=== PATIENT | female | born 1940 | race Caucasian/White ===

== ENCOUNTER 2021-03-20 12:23 | Emergency (ER) | payer MEDICARE ==
[2021-03-20] MEDS ORDERED: PANTOPRAZOLE 40 MG/10 ML VIAL IVP STA (13:23)
[2021-03-20] MEDS ORDERED: SODIUM CHLORIDE 0.9% 1,000 ML IV STA (13:23)
[2021-03-20] MEDS ORDERED: ONDANSETRON 4 MG/2 ML VIAL IVP STA (13:23)
[2021-03-20 13:57] LABS: Basophils % (A) 1 %; Eosinophils % (A) 1 %; HCT 45.9 % (34.0-46.0); HGB 15.3 gm/dL (11.4-16.0); Lymphocytes # (A) 1.4 k/uL (1.0-4.8); Lymphocytes % (A) 23 %; MCH 30.3 pg (25.0-35.0); MCHC 33.3 g/dL (31.0-37.0); MCV 90.9 fL (80.0-100.0); Mean Platelet Volume 7.3; Monocytes # (A) 0.3 k/uL (0-1.0); Monocytes % (A) 5 %; Neutrophils # (A) 4.2 k/uL (1.3-7.7); Neutrophils % (A) 69 %; Platelet Count 247 k/uL (150-450); RBC 5.05 m/uL (3.80-5.40); RDW 12.7 % (11.5-15.5); WBC 6.1 k/uL (3.8-10.6)
[2021-03-20 14:11] LABS: ALT 19 U/L (4-34); AST 30 U/L (14-36); African American GFR (CKD) >90 (>60 ml/min/1.73 sqM); Alkaline Phosphatase 97 U/L (38-126); Amylase 81 U/L (30-110); Anion Gap 7 mmol/L; Blood Urea Nitrogen 8 mg/dL (7-17); Calcium 9.8 mg/dL (8.4-10.2); Carbon Dioxide 25 mmol/L (22-30); Chloride 104 mmol/L (98-107); Glucose 94 mg/dL (74-99); Lipase 152 U/L (23-300); Non-African American GFR(CKD) >90 (>60 ml/min/1.73 sqM); Potassium 4.2 mmol/L (3.5-5.1); Sodium 136 mmol/L (137-145); Total Bilirubin 0.4 mg/dL (0.2-1.3); Total Protein 6.3 g/dL (6.3-8.2)
[2021-03-20 14:17] LABS: INR 0.9 (<1.2); Partial Thromboplastin Time 23.6 sec (22.0-30.0); Prothrombin Time 10.2 sec (9.0-12.0)
--- NOTE | 2021-03-20 14:25 | ED ---
Abdominal Pain HPI - General Chief Complaint: Abdominal Pain Stated Complaint: Nausea & possible UTI Time Seen by Provider: 03/20/21 12:43 Source: patient Mode of arrival: ambulatory Limitations: no limitations - History of Present Illness Initial Comments: Patient is a 80-year-old female with history of hypertension, presenting to the emergency Department with complaints of abdominal pain, nausea and decreased appetite for several days. She also has concerns for UTI with dysuria over the past 3-4 days. Patient states she is 2 months post op hiatal hernia repair for the second time. She states she had this procedure done with a Dr. Munoz out of [facility] in [place]. She states even before the procedure she's been having lots of nausea and trouble eating, she is losing weight so she finally decided to have the hernia fixed again. She states the nausea has continued and she is also having complaints of a UTI, so she decided to come in to be evaluated. Patient recently moved to the area and is not planned to go back to her surgeon in [place]. She denies any fevers or chills. She denies any diarrhea, she does take MiraLAX and stool softeners for constipation. She had a bowel movement 2 days ago. She denies any chest pain or shortness of breath. She has no further complaints at this time. It'll signs are stable upon arrival. - Related Data Home Medications Medication Instructions Recorded Confirmed Diltiazem HCl [Cardizem LA] 300 mg PO HS 03/20/21 03/20/21 Fosinopril Sodium [Monopril] 20 mg PO BID 03/20/21 03/20/21 Hydrochlorothiazide 12.5 mg PO DAILY PRN 03/20/21 03/20/21 [hydroCHLOROthiazide] Isosorbide Mononitrate ER [Imdur] 60 mg PO HS 03/20/21 03/20/21 Nitroglycerin Sl Tabs [Nitrostat] 0.4 mg SL Q5M PRN 03/20/21 03/20/21 Ondansetron [Zofran] 4 mg PO Q8H PRN 03/20/21 03/20/21 Pantoprazole Sodium [Protonix] 20 mg PO DAILY 03/20/21 03/20/21 Vit C/E/Zn/Coppr/Lutein/Zeaxan 1 cap PO DAILY 03/20/21 03/20/21 [Preservision Areds 2 Softgel] hydrALAZINE HCL [Apresoline] 25 mg PO BID 03/20/21 03/20/21 Previous Rx's Medication Instructions Recorded Cephalexin [Keflex] 500 mg PO BID 5 Days #10 cap 03/20/21 Ondansetron Odt [Zofran Odt] 4 mg PO Q8HR PRN #10 tab 03/20/21 Allergies Allergy/AdvReac Type Severity Reaction Status Date / Time Penicillins Allergy Anaphylaxis Verified 03/20/21 14:23 aspirin AdvReac Abdominal Verified 03/20/21 14:23 Pain codeine AdvReac Confusion Verified 03/20/21 14:23 NSAIDS (Non-Steroidal AdvReac Abdominal Verified 03/20/21 14:23 Anti-Inflamma Pain Review of Systems ROS Statement: Those systems with pertinent positive or pertinent negative responses have been documented in the HPI. ROS Other: All systems not noted in ROS Statement are negative. Past Medical History Past Medical History: Hypertension History of Any Multi-Drug Resistant Organisms: None Reported Past Surgical History: Back Surgery, Hernia Repair, Orthopedic Surgery Additional Past Surgical History / Comment(s): Neck fusion, Past Psychological History: No Psychological Hx Reported Smoking Status: Never smoker Past Alcohol Use History: None Reported Past Drug Use History: None Reported General Exam - General Exam Comments Initial Comments: GENERAL: Patient is well-developed and well-nourished. Patient is nontoxic and in no acute distress. HEAD: Atraumatic, normocephalic. EYES: Pupils equal round and reactive to light, extraocular movements intact, sclera anicteric, conjunctiva are normal. Eyelids were unremarkable. ENT: TMs normal, nares patent, oropharynx clear without exudates. Moist mucous membranes. NECK: Normal range of motion, supple without lymphadenopathy or JVD. LUNGS: Unlabored respirations. Breath sounds clear to auscultation bilaterally and equal. No wheezes rales or rhonchi. HEART: Regular rate and rhythm without murmurs, rubs or gallops. ABDOMEN: Soft, mild epigastric discomfort on palpation, no other areas of specific pain, normoactive bowel sounds. No guarding, no rebound. No masses appreciated. : Deferred MUSCULOSKELETAL: Normal extremities with adequate strength and normal range of motion, no pitting or edema. No clubbing or cyanosis. NEUROLOGICAL: Patient is alert and oriented x 3. Motor and sensory are also intact. Cranial nerves II through XII grossly intact. Symmetrical smile. Normal speech, normal gait. PSYCH: Normal mood, normal affect. SKIN: Warm, Dry, normal turgor, no rashes or lesions noted. Limitations: no limitations Course Vital Signs 03/20/21 03/20/21 03/20/21 12:29 15:51 16:40 Temperature 98.2 F 98.0 F Pulse Rate 74 89 80 Respiratory 20 16 16 Rate Blood Pressure 176/97 176/84 151/78 O2 Sat by Pulse 97 96 99 Oximetry Medical Decision Making - Medical Decision Making Patient is a 80-year-old female here with abdominal pain, nausea and vomiting over the past few days as well as concerns for UTI. She is 2 months post hiatal hernia repair, surgeon is from [place]. Her vital signs are stable. Labs are all within normal limits including a normal white count, normal lactic acid, troponin is normal. Urine does show evidence for UTI with many wbc's, urine culture is pending. I initially performed a KUB which showed a nonspecific abdomen, correlate for left mid abdomen ileus. With patient's recent surgical history, there was concern for possible obstruction, I did order a CT which showed no acute abnormality. I did give patient some fluids, Zofran and for tonics. She's been resting comfortably. Discussed these findings with the isaiah cervantes and her family. Patient will be treated for her UTI and given referrals to a GI doctor and surgeon. She has no plans to go back to [place] to see her surgeon there. Patient is agreeable to this plan of care. I will give her 1 g of Rocephin here in the ER and continue her on Keflex for UTI. Return parameters were discussed with her and she verbalized understanding. Case discussed with Dr. Rojas. - Lab Data Result diagrams: 03/20/21 13:41 03/20/21 13:41 Lab Results 03/20/21 03/20/21 03/20/21 Range/Units 13:41 13:41 13:41 WBC 6.1 (3.8-10.6) k/uL RBC 5.05 (3.80-5.40) m/uL Hgb 15.3 (11.4-16.0) gm/dL Hct 45.9 (34.0-46.0) % MCV 90.9 (80.0-100.0) fL MCH 30.3 (25.0-35.0) pg MCHC 33.3 (31.0-37.0) g/dL RDW 12.7 (11.5-15.5) % Plt Count 247 (150-450) k/uL MPV 7.3 Neutrophils % 69 % Lymphocytes % 23 % Monocytes % 5 % Eosinophils % 1 % Basophils % 1 % Neutrophils # 4.2 (1.3-7.7) k/uL Lymphocytes # 1.4 (1.0-4.8) k/uL Monocytes # 0.3 (0-1.0) k/uL Eosinophils # 0.0 (0-0.7) k/uL Basophils # 0.0 (0-0.2) k/uL PT (9.0-12.0) sec INR (<1.2) APTT (22.0-30.0) sec Sodium 136 L (137-145) mmol/L Potassium 4.2 (3.5-5.1) mmol/L Chloride 104 (98-107) mmol/L Carbon Dioxide 25 (22-30) mmol/L Anion Gap 7 mmol/L BUN 8 (7-17) mg/dL Creatinine 0.51 L (0.52-1.04) mg/dL Est GFR (CKD-EPI)AfAm >90 (>60 ml/min/1.73 sqM) Est GFR (CKD-EPI)NonAf >90 (>60 ml/min/1.73 sqM) Glucose 94 (74-99) mg/dL Plasma Lactic Acid Rogelio (0.7-2.0) mmol/L Calcium 9.8 (8.4-10.2) mg/dL Total Bilirubin 0.4 (0.2-1.3) mg/dL AST 30 (14-36) U/L ALT 19 (4-34) U/L Alkaline Phosphatase 97 (38-126) U/L Troponin I (0.000-0.034) ng/mL Total Protein 6.3 (6.3-8.2) g/dL Albumin 4.0 (3.5-5.0) g/dL Amylase 81 (30-110) U/L Lipase 152 (23-300) U/L Urine Color Yellow Urine Appearance Cloudy H (Clear) Urine pH 7.0 (5.0-8.0) Ur Specific [place] 1.011 (1.001-1.035) Urine Protein Negative (Negative) Urine Glucose (UA) Negative (Negative) Urine Ketones Negative (Negative) Urine Blood Trace H (Negative) Urine Nitrite Negative (Negative) Urine Bilirubin Negative (Negative) Urine Urobilinogen <2.0 (<2.0) mg/dL Ur Leukocyte Esterase Large H (Negative) Urine RBC 6 H (0-5) /hpf Urine WBC 102 H (0-5) /hpf Hyaline Casts 1 (0-2) /lpf 03/20/21 03/20/21 03/20/21 Range/Units 13:41 13:41 13:41 WBC (3.8-10.6) k/uL RBC (3.80-5.40) m/uL Hgb (11.4-16.0) gm/dL Hct (34.0-46.0) % MCV (80.0-100.0) fL MCH (25.0-35.0) pg MCHC (31.0-37.0) g/dL RDW (11.5-15.5) % Plt Count (150-450) k/uL MPV Neutrophils % % Lymphocytes % % Monocytes % % Eosinophils % % Basophils % % Neutrophils # (1.3-7.7) k/uL Lymphocytes # (1.0-4.8) k/uL Monocytes # (0-1.0) k/uL Eosinophils # (0-0.7) k/uL Basophils # (0-0.2) k/uL PT 10.2 (9.0-12.0) sec INR 0.9 (<1.2) APTT 23.6 (22.0-30.0) sec Sodium (137-145) mmol/L Potassium (3.5-5.1) mmol/L Chloride (98-107) mmol/L Carbon Dioxide (22-30) mmol/L Anion Gap mmol/L BUN (7-17) mg/dL Creatinine (0.52-1.04) mg/dL Est GFR (CKD-EPI)AfAm (>60 ml/min/1.73 sqM) Est GFR (CKD-EPI)NonAf (>60 ml/min/1.73 sqM) Glucose (74-99) mg/dL Plasma Lactic Acid Rogelio 1.1 (0.7-2.0) mmol/L Calcium (8.4-10.2) mg/dL Total Bilirubin (0.2-1.3) mg/dL AST (14-36) U/L ALT (4-34) U/L Alkaline Phosphatase (38-126) U/L Troponin I <0.012 (0.000-0.034) ng/mL Total Protein (6.3-8.2) g/dL Albumin (3.5-5.0) g/dL Amylase (30-110) U/L Lipase (23-300) U/L Urine Color Urine Appearance (Clear) Urine pH (5.0-8.0) Ur Specific [place] (1.001-1.035) Urine Protein (Negative) Urine Glucose (UA) (Negative) Urine Ketones (Negative) Urine Blood (Negative) Urine Nitrite (Negative) Urine Bilirubin (Negative) Urine Urobilinogen (<2.0) mg/dL Ur Leukocyte Esterase (Negative) Urine RBC (0-5) /hpf Urine WBC (0-5) /hpf Hyaline Casts (0-2) /lpf Disposition Clinical Impression: Nausea, UTI (urinary tract infection), Abdominal pain Disposition: HOME SELF-CARE Condition: Stable Instructions (If sedation given, give patient instructions): Urinary Tract Infection in Women (ED) Additional Instructions: Please return to the Emergency Department if symptoms worsen or any other concerns. Take antibiotics as prescribed. May take Zofran for additional nausea or vomiting. These follow-up with your primary care physician as well as GI and surgery as discussed. Prescriptions: Cephalexin [Keflex] 500 mg PO BID 5 Days #10 cap Ondansetron Odt [Zofran Odt] 4 mg PO Q8HR PRN #10 tab PRN Reason: Nausea Is patient prescribed a controlled substance at d/c from ED?: No Referrals: Nonstaff,Physician [Primary Care Provider] - 1-2 days Krystyna Canada MD [STAFF PHYSICIAN] - 1-2 days Anna Miner DO [Doctor of Osteopathic Medicine] - 1-2 days Time of Disposition: 16:22
[2021-03-20 14:31] LABS: Appearance,Urine Cloudy (Clear); Bilirubin,Urine Negative (Negative); Blood,Urine Trace (Negative); Color,Urine Yellow; Glucose,Urine (UA) Negative (Negative); Hyaline Casts,Urine 1 /lpf (0-2); Ketones,Urine Negative (Negative); Leukocyte Esterase,Urine Large (Negative); Nitrite,Urine Negative (Negative); Protein,Urine Negative (Negative); RBC,Urine 6 /hpf (0-5); Specific Gravity,Urine 1.011 (1.001-1.035); Urobilinogen,Urine <2.0 mg/dL (<2.0); WBC,Urine 102 /hpf (0-5)
--- NOTE | 2021-03-20 15:05 | XR ---
EXAMINATION TYPE: XR KUB DATE OF EXAM: 03/20/2021 COMPARISON: None INDICATION: Epigastric pain left flank pain TECHNIQUE: Single view abdomen upright view FINDINGS: There is a normal bowel gas pattern. No free air is under the diaphragm. No suspicious air-fluid leve ls are present. Nonspecific dilated air-filled small bowel loops are within the left mid abdomen. Lar gest diameter is 3.3 cm. Psoas margins are normal. No organomegaly is present. Vascular calcifications within the aorta. Cholecystectomy clips are evident. IMPRESSION: 1. Nonspecific abdomen. Correlate for left midabdomen ileus
--- NOTE | 2021-03-20 15:41 | CT ---
EXAMINATION TYPE: CT abdomen pelvis w con DATE OF EXAM: 03/20/2021 COMPARISON: None INDICATION: periumbilical to LLQ pain, nausea DLP: 905.4 mGycm, Automated exposure control for dose reduction was used. CONTRAST: 100 mL of Isovue 370. Study performed without Oral Contrast TECHNIQUE: Axial images were obtained from above the diaphragm to the pubic rami in the axial plane a t 5 mm thick sections. Reconstructed images are reviewed on the computer in the coronal plane. FINDINGS: Limited CT sections are obtained the lung bases. The lung bases are clear. CT ABDOMEN: Liver: Normal Spleen: Normal Pancreas: Atrophic Adrenal glands: The adrenal glands are normal. Gallbladder: Surgically absent Kidneys: No masses are evident. No hydronephrosis is present. No cysts are present. Delayed images were obtained through the kidneys, which remain unremarkable. Aorta: Dense Vascular calcification is within the aorta. Inferior vena cava: Normal. CT PELVIS: No periumbilical hernia is identified. Loops of bowel within the abdomen and pelvis are normal. This study is performed without oral con trast limiting bowel evaluation. Appendix: Normal as visualized. Urinary bladder: Normal. Genitourinary structures: Uterus appears unremarkable. Adnexal regions are clear. Osseous structures: No suspicious lytic or sclerotic lesions are evident. Small bone island is likely in the anterior femoral head left femur. Degenerative changes are within the lumbar spine. IMPRESSIONS: 1. No suspicious abnormalities to account for periumbilical or left lower quadrant pain.
[2021-03-20 15:51] VITALS: RESP 16
[2021-03-20] MEDS ORDERED: cefTRIAXone IN SWFI 1,000 MG/10 ML SYRINGE IVP STA (16:19)
[2021-03-20 16:47] VITALS: BP 151/78; PULSE 80; TEMP 98
== END 2021-03-20 16:47 | disposition home or self-care (01) ==
LOC: EC 12:23
DX: N39.0 Urinary tract infection, site not specified (principal); I10 Essential (primary) hypertension; Z88.0 Allergy status to penicillin
CPT/HCPCS: 36415; 80053; 82150; 83605; 83690; 84484; 85025; 85610; 85730; 81001; 87086; 74018; 74177; 99284; 96374; 96375 ×2; 96361 ×2; J2405; J0696; C9113; Q9967

== ENCOUNTER 2021-04-20 17:30 | Emergency (ER) | payer MEDICARE ==
--- NOTE | 2021-04-20 22:19 | ED ---
General Adult HPI - General Chief complaint: Recheck/Abnormal Lab/Rx Stated complaint: Prolapse Time Seen by Provider: 04/20/21 21:09 Source: patient Mode of arrival: wheelchair Limitations: no limitations - History of Present Illness Initial comments: 80-year-old female presents to the emergency room for a chief complaint of rectal prolapse. Patient reports that this is been ongoing for months. Patient states that it prolapse again yesterday and it took her 5 hours to reduce it because it was tender. Patient states this concerned her and she wanted to be evaluated today. Patient does not currently have a rectal prolapse. Patient is stating she does have some rectal discomfort but denies any abdominal pain.Patient has no other complaints at this time including shortness of breath, chest pain, abdominal pain, nausea or vomiting, headache, or visual changes. - Related Data Home Medications Medication Instructions Recorded Confirmed Diltiazem HCl [Cardizem LA] 300 mg PO HS 03/20/21 04/20/21 Fosinopril Sodium [Monopril] 20 mg PO BID 03/20/21 04/20/21 Hydrochlorothiazide 12.5 mg PO DAILY PRN 03/20/21 04/20/21 [hydroCHLOROthiazide] Isosorbide Mononitrate ER [Imdur] 60 mg PO HS 03/20/21 04/20/21 Nitroglycerin Sl Tabs [Nitrostat] 0.4 mg SL Q5M PRN 03/20/21 04/20/21 Pantoprazole Sodium [Protonix] 20 mg PO DAILY 03/20/21 04/20/21 Vit C/E/Zn/Coppr/Lutein/Zeaxan 1 cap PO DAILY 03/20/21 04/20/21 [Preservision Areds 2 Softgel] hydrALAZINE HCL [Apresoline] 25 mg PO BID 03/20/21 04/20/21 Doxycycline Monohydrate 100 mg PO BID 04/20/21 04/20/21 Previous Rx's Medication Instructions Recorded Ondansetron Odt [Zofran Odt] 4 mg PO Q8HR PRN #10 tab 03/20/21 Allergies Allergy/AdvReac Type Severity Reaction Status Date / Time Penicillins Allergy Anaphylaxis Verified 04/20/21 22:09 aspirin AdvReac Abdominal Verified 04/20/21 22:09 Pain codeine AdvReac Confusion Verified 04/20/21 22:09 NSAIDS (Non-Steroidal AdvReac Abdominal Verified 04/20/21 22:09 Anti-Inflamma Pain Review of Systems ROS Statement: Those systems with pertinent positive or pertinent negative responses have been documented in the HPI. ROS Other: All systems not noted in ROS Statement are negative. Past Medical History Past Medical History: Hypertension History of Any Multi-Drug Resistant Organisms: None Reported Past Surgical History: Back Surgery, Hernia Repair, Orthopedic Surgery Additional Past Surgical History / Comment(s): Neck fusion, Past Psychological History: No Psychological Hx Reported Smoking Status: Never smoker Past Alcohol Use History: None Reported Past Drug Use History: None Reported General Exam Limitations: no limitations General appearance: alert, in no apparent distress Head exam: Present: atraumatic Eye exam: Present: normal appearance, PERRL, EOMI. Absent: scleral icterus ENT exam: Present: normal exam, mucous membranes moist Neck exam: Present: normal inspection, full ROM. Absent: tenderness Respiratory exam: Present: normal lung sounds bilaterally. Absent: respiratory distress, wheezes Cardiovascular Exam: Present: regular rate, normal rhythm, normal heart sounds GI/Abdominal exam: Present: soft, normal bowel sounds. Absent: distended, tenderness Rectal exam: Present: normal inspection Course Vital Signs 04/20/21 04/20/21 18:35 21:20 Temperature 97.8 F Pulse Rate 75 88 Respiratory 18 16 Rate Blood Pressure 171/101 188/96 O2 Sat by Pulse 96 99 Oximetry Medical Decision Making - Medical Decision Making Had a lengthy discussion with patient. At this time she is not having any abdominal pain, slight rectal discomfort. There is no prolapse. No vomiting. Patient is well-appearing. She does have an appointment with the colorectal surgeon in one week. At this time we feel the best course of action is to follow-up with the surgeon. If she has any significant pain or difficulty reducing the prolapse she can always return to the emergency room which she is aware of. She will continue stool softeners and will start Tylenol.I discussed this case with attending Dr. Rojas who agrees with this assessment and treatment plan. Disposition Clinical Impression: Rectal prolapse Disposition: HOME SELF-CARE Condition: Good Instructions (If sedation given, give patient instructions): Rectal Prolapse (ED) Additional Instructions: Please continue your stool softeners. Take Tylenol for pain and discomfort. Follow up with the colorectal surgeon on Tuesday. Return to the emergency room for any worsening symptoms. Is patient prescribed a controlled substance at d/c from ED?: No Referrals: Zarina Harp MD [STAFF PHYSICIAN] - 1-2 days Time of Disposition: 22:18
[2021-04-20 22:47] VITALS: BP 147/95; PULSE 92; RESP 18; TEMP 98.2
== END 2021-04-20 22:30 | disposition home or self-care (01) ==
LOC: EC 17:30
DX: K62.3 Rectal prolapse (principal); I10 Essential (primary) hypertension; Z88.0 Allergy status to penicillin; Z88.6 Allergy status to analgesic agent
CPT/HCPCS: 99283

== ENCOUNTER 2021-06-16 18:44 | Emergency (ER) | payer MEDICARE ==
[2021-06-16 19:11] VITALS: TEMP 98.5
[2021-06-16] MEDS ORDERED: SODIUM CHLORIDE 0.9% 500 ML 500 ML IV ONE (20:05)
[2021-06-16 20:31] LABS: Basophils % (A) 1 %; Eosinophils # (A) 0.1 k/uL (0-0.7); Eosinophils % (A) 1 %; HCT 40.6 % (34.0-46.0); HGB 13.6 gm/dL (11.4-16.0); Lymphocytes # (A) 1.9 k/uL (1.0-4.8); Lymphocytes % (A) 31 %; MCH 30.8 pg (25.0-35.0); MCHC 33.6 g/dL (31.0-37.0); MCV 91.6 fL (80.0-100.0); Monocytes # (A) 0.4 k/uL (0-1.0); Monocytes % (A) 6 %; Neutrophils # (A) 3.5 k/uL (1.3-7.7); Neutrophils % (A) 59 %; Platelet Count 254 k/uL (150-450); RBC 4.43 m/uL (3.80-5.40); RDW 12.7 % (11.5-15.5); WBC 5.9 k/uL (3.8-10.6)
[2021-06-16 20:33] LABS: Appearance,Urine Clear (Clear); Bilirubin,Urine Negative (Negative); Blood,Urine Negative (Negative); Color,Urine Yellow; Glucose,Urine (UA) Negative (Negative); Ketones,Urine Negative (Negative); Leukocyte Esterase,Urine Negative (Negative); Nitrite,Urine Negative (Negative); Protein,Urine Negative (Negative); Specific Gravity,Urine 1.013 (1.001-1.035); Urobilinogen,Urine <2.0 mg/dL (<2.0)
[2021-06-16 20:40] LABS: ALT 16 U/L (4-34); AST 23 U/L (14-36); African American GFR (CKD) >90 (>60 ml/min/1.73 sqM); Albumin 3.2 g/dL (3.5-5.0); Alkaline Phosphatase 96 U/L (38-126); Anion Gap 7 mmol/L; Blood Urea Nitrogen 14 mg/dL (7-17); Calcium 9.1 mg/dL (8.4-10.2); Carbon Dioxide 23 mmol/L (22-30); Chloride 100 mmol/L (98-107); Glucose 109 mg/dL (74-99); Non-African American GFR(CKD) >90 (>60 ml/min/1.73 sqM); Sodium 130 mmol/L (137-145); Total Bilirubin 0.4 mg/dL (0.2-1.3); Total Protein 5.5 g/dL (6.3-8.2)
[2021-06-16 21:07] VITALS: BP 161/85; PULSE 95; RESP 20
--- NOTE | 2021-06-16 21:34 | ED ---
Female Urogenital HPI - General Chief complaint: Urogenital Stated complaint: AMS/poss uti Time Seen by Provider: 06/16/21 19:30 Source: patient, family Mode of arrival: wheelchair Limitations: no limitations - History of Present Illness Initial comments: 80 year-old female patient presents to the emergency department for evaluation of weakness, dizziness, and nausea. States symptoms have started over the last few days. States that she generally gets these symptoms when she has a UTI. Patient gets frequent UTIs due to having to self catheterize. She has been doing this for about a year for chronic urinary retention after a neck surgery. Daughter states she has been somewhat confused today as well. They deny any fever. States she has had some hot flashes. She reports eating and drinking well. Denies any abdominal or back pain. Denies constipation or diarrhea. Patient denies any recent rash, cough, shortness of breath, chest pain, numbness, tingling, dizziness, weakness, headache, visual changes, or any other complaints. - Related Data Home Medications Medication Instructions Recorded Confirmed Diltiazem HCl [Cardizem LA] 300 mg PO HS 03/20/21 06/16/21 Fosinopril Sodium [Monopril] 20 mg PO BID 03/20/21 06/16/21 Hydrochlorothiazide 12.5 mg PO DAILY 03/20/21 06/16/21 [hydroCHLOROthiazide] Isosorbide Mononitrate ER [Imdur] 60 mg PO DAILY 03/20/21 06/16/21 Nitroglycerin Sl Tabs [Nitrostat] 0.4 mg SL Q5M PRN 03/20/21 06/16/21 Pantoprazole Sodium [Protonix] 20 mg PO DAILY 03/20/21 06/16/21 hydrALAZINE HCL [Apresoline] 25 mg PO BID 03/20/21 06/16/21 Aspirin EC [Ecotrin Low Dose] 81 mg PO Q48H 06/16/21 06/16/21 Melatonin 5 mg PO HS 06/16/21 06/16/21 Multivitamins, Thera [Multivitamin 1 tab PO DAILY 06/16/21 06/16/21 (formulary)] Ondansetron [Zofran] 4 mg PO Q12HR PRN 06/16/21 06/16/21 Previous Rx's Medication Instructions Recorded Doxycycline Hyclate 100 mg PO Q12H 1 Days #10 tab 06/16/21 Allergies Allergy/AdvReac Type Severity Reaction Status Date / Time nitrofurantoin Allergy Nausea, Verified 06/16/21 20:53 [From Macrobid] itching Penicillins Allergy Anaphylaxis Verified 06/16/21 19:11 sulfamethoxazole Allergy Nausea, Verified 06/16/21 20:53 [From Bactrim] Itching trimethoprim [From Bactrim] Allergy Nausea, Verified 06/16/21 20:53 Itching aspirin AdvReac Abdominal Verified 06/16/21 19:11 Pain codeine AdvReac Confusion Verified 06/16/21 19:11 NSAIDS (Non-Steroidal AdvReac Abdominal Verified 06/16/21 19:11 Anti-Inflamma Pain Review of Systems ROS Statement: Those systems with pertinent positive or pertinent negative responses have been documented in the HPI. ROS Other: All systems not noted in ROS Statement are negative. Past Medical History Past Medical History: Hypertension History of Any Multi-Drug Resistant Organisms: None Reported Past Surgical History: Back Surgery, Hernia Repair, Orthopedic Surgery Additional Past Surgical History / Comment(s): Neck fusion, colon proloapse reconstructions 04/2021 Past Psychological History: No Psychological Hx Reported Smoking Status: Never smoker Past Alcohol Use History: None Reported Past Drug Use History: None Reported General Exam Limitations: no limitations General appearance: alert, in no apparent distress, other (This is a well- developed, well-nourished adult female patient in no acute distress.) Respiratory exam: Present: normal lung sounds bilaterally. Absent: respiratory distress, wheezes, rales, rhonchi, stridor Cardiovascular Exam: Present: regular rate, normal rhythm, normal heart sounds. Absent: systolic murmur, diastolic murmur, rubs, gallop, clicks GI/Abdominal exam: Present: soft, normal bowel sounds. Absent: distended, tenderness, guarding, rebound, rigid Back exam: Present: normal inspection. Absent: CVA tenderness (R), CVA tenderness (L) Neurological exam: Present: alert, oriented X3, CN II-XII intact Psychiatric exam: Present: normal affect, normal mood Skin exam: Present: warm, dry, intact, normal color. Absent: rash Course Vital Signs 06/16/21 06/16/21 19:06 21:05 Temperature 98.5 F Pulse Rate 117 H 95 Respiratory 18 20 Rate Blood Pressure 163/93 161/85 O2 Sat by Pulse 96 97 Oximetry Medical Decision Making - Medical Decision Making 80-year-old female patient presented to the emergency department today for evaluation of dizziness, nausea, confusion. Physical examination is unremarkable. She is neurologically intact no focal deficits. Labs reviewed and did reveal low sodium at 1:30. Urinalysis was negative. Reevaluation she is resting comfortably in bed. Did discuss findings results with her. She was given 500 mL of normal saline. Instructed to increase salt in her diet. She will be started on doxycycline for possibility of subclinical UTI pending urine culture. She is instructed to follow-up with her primary care physician for recheck in 1-2 days. Return parameters were discussed in detail. She verbalizes understanding and agrees with this plan. Case discussed with my attending Dr. Saavedra. - Lab Data Result diagrams: 06/16/21 20:08 06/16/21 20:08 Lab Results 06/16/21 06/16/21 06/16/21 Range/Units 20:08 20:08 20:08 WBC 5.9 (3.8-10.6) k/uL RBC 4.43 (3.80-5.40) m/uL Hgb 13.6 (11.4-16.0) gm/dL Hct 40.6 (34.0-46.0) % MCV 91.6 (80.0-100.0) fL MCH 30.8 (25.0-35.0) pg MCHC 33.6 (31.0-37.0) g/dL RDW 12.7 (11.5-15.5) % Plt Count 254 (150-450) k/uL MPV 7.0 Neutrophils % 59 % Lymphocytes % 31 % Monocytes % 6 % Eosinophils % 1 % Basophils % 1 % Neutrophils # 3.5 (1.3-7.7) k/uL Lymphocytes # 1.9 (1.0-4.8) k/uL Monocytes # 0.4 (0-1.0) k/uL Eosinophils # 0.1 (0-0.7) k/uL Basophils # 0.0 (0-0.2) k/uL Sodium 130 L (137-145) mmol/L Potassium 4.0 (3.5-5.1) mmol/L Chloride 100 (98-107) mmol/L Carbon Dioxide 23 (22-30) mmol/L Anion Gap 7 mmol/L BUN 14 (7-17) mg/dL Creatinine 0.52 (0.52-1.04) mg/dL Est GFR (CKD-EPI)AfAm >90 (>60 ml/min/1.73 sqM) Est GFR (CKD-EPI)NonAf >90 (>60 ml/min/1.73 sqM) Glucose 109 H (74-99) mg/dL Plasma Lactic Acid Rogelio (0.7-2.0) mmol/L Calcium 9.1 (8.4-10.2) mg/dL Total Bilirubin 0.4 (0.2-1.3) mg/dL AST 23 (14-36) U/L ALT 16 (4-34) U/L Alkaline Phosphatase 96 (38-126) U/L Troponin I (0.000-0.034) ng/mL Total Protein 5.5 L (6.3-8.2) g/dL Albumin 3.2 L (3.5-5.0) g/dL Urine Color Yellow Urine Appearance Clear (Clear) Urine pH 6.0 (5.0-8.0) Ur Specific [place] 1.013 (1.001-1.035) Urine Protein Negative (Negative) Urine Glucose (UA) Negative (Negative) Urine Ketones Negative (Negative) Urine Blood Negative (Negative) Urine Nitrite Negative (Negative) Urine Bilirubin Negative (Negative) Urine Urobilinogen <2.0 (<2.0) mg/dL Ur Leukocyte Esterase Negative (Negative) 06/16/21 06/16/21 Range/Units 20:08 21:04 WBC (3.8-10.6) k/uL RBC (3.80-5.40) m/uL Hgb (11.4-16.0) gm/dL Hct (34.0-46.0) % MCV (80.0-100.0) fL MCH (25.0-35.0) pg MCHC (31.0-37.0) g/dL RDW (11.5-15.5) % Plt Count (150-450) k/uL MPV Neutrophils % % Lymphocytes % % Monocytes % % Eosinophils % % Basophils % % Neutrophils # (1.3-7.7) k/uL Lymphocytes # (1.0-4.8) k/uL Monocytes # (0-1.0) k/uL Eosinophils # (0-0.7) k/uL Basophils # (0-0.2) k/uL Sodium (137-145) mmol/L Potassium (3.5-5.1) mmol/L Chloride (98-107) mmol/L Carbon Dioxide (22-30) mmol/L Anion Gap mmol/L BUN (7-17) mg/dL Creatinine (0.52-1.04) mg/dL Est GFR (CKD-EPI)AfAm (>60 ml/min/1.73 sqM) Est GFR (CKD-EPI)NonAf (>60 ml/min/1.73 sqM) Glucose (74-99) mg/dL Plasma Lactic Acid Rogelio 0.7 (0.7-2.0) mmol/L Calcium (8.4-10.2) mg/dL Total Bilirubin (0.2-1.3) mg/dL AST (14-36) U/L ALT (4-34) U/L Alkaline Phosphatase (38-126) U/L Troponin I 0.013 (0.000-0.034) ng/mL Total Protein (6.3-8.2) g/dL Albumin (3.5-5.0) g/dL Urine Color Urine Appearance (Clear) Urine pH (5.0-8.0) Ur Specific [place] (1.001-1.035) Urine Protein (Negative) Urine Glucose (UA) (Negative) Urine Ketones (Negative) Urine Blood (Negative) Urine Nitrite (Negative) Urine Bilirubin (Negative) Urine Urobilinogen (<2.0) mg/dL Ur Leukocyte Esterase (Negative) - EKG Data -: EKG Interpreted by Pr EKG Comments: EKG obtained at 2057 shows normal sinus rhythm with a ventricular rate of 92, CT interval 160, QRS duration 70, QT 344, QTC 425. No evidence of ST elevation or depression. Disposition Clinical Impression: Nausea, Dizziness, Hyponatremia Disposition: HOME SELF-CARE Condition: Good Instructions (If sedation given, give patient instructions): Hyponatremia (ED) Additional Instructions: Increase salt use in your diet. Consider using sports drinks like Gatorade or Pedialyte. Follow-up with the primary care physician for recheck in 1-2 days. Return for any new, worsening, or concerning symptoms. Prescriptions: Doxycycline Hyclate 100 mg PO Q12H 1 Days #10 tab Is patient prescribed a controlled substance at d/c from ED?: No Referrals: Katy Lawrence DO [Primary Care Provider] - 1-2 days Time of Disposition: 22:23
[2021-06-16] MEDS ORDERED: DOXYCYCLINE 100 MG CAP PO STA (22:22)
== END 2021-06-16 22:51 | disposition home or self-care (01) ==
LOC: EC 18:44
DX: E87.1 Hypo-osmolality and hyponatremia (principal); R42 Dizziness and giddiness; I10 Essential (primary) hypertension; Z79.82 Long term (current) use of aspirin; Z79.899 Other long term (current) drug therapy; Z88.0 Allergy status to penicillin; Z88.1 Allergy status to other antibiotic agents; Z88.2 Allergy status to sulfonamides; Z88.5 Allergy status to narcotic agent; Z88.6 Allergy status to analgesic agent
CPT/HCPCS: 36415; 80053; 81003; 83605; 84484; 85025; 87086; 93005; 96360; 96361; 99285

== ENCOUNTER 2021-06-24 12:15 | Emergency (ER) | payer MEDICARE ==
[2021-06-24 12:55] VITALS: RESP 20
[2021-06-24 13:22] LABS: Basophils % (A) 0 %; Eosinophils % (A) 0 %; HCT 42.1 % (34.0-46.0); HGB 14.5 gm/dL (11.4-16.0); Lymphocytes # (A) 0.8 k/uL (1.0-4.8); Lymphocytes % (A) 13 %; MCH 30.4 pg (25.0-35.0); MCHC 34.4 g/dL (31.0-37.0); MCV 88.5 fL (80.0-100.0); Mean Platelet Volume 6.9; Monocytes # (A) 0.3 k/uL (0-1.0); Monocytes % (A) 5 %; Neutrophils # (A) 4.8 k/uL (1.3-7.7); Neutrophils % (A) 80 %; Platelet Count 323 k/uL (150-450); RBC 4.75 m/uL (3.80-5.40); RDW 13.1 % (11.5-15.5)
[2021-06-24 13:35] LABS: ALT 20 U/L (4-34); AST 27 U/L (14-36); African American GFR (CKD) >90 (>60 ml/min/1.73 sqM); Albumin 4.1 g/dL (3.5-5.0); Alkaline Phosphatase 112 U/L (38-126); Anion Gap 7 mmol/L; Blood Urea Nitrogen 12 mg/dL (7-17); Calcium 9.9 mg/dL (8.4-10.2); Carbon Dioxide 26 mmol/L (22-30); Chloride 95 mmol/L (98-107); Glucose 137 mg/dL (74-99); Non-African American GFR(CKD) 87 (>60 ml/min/1.73 sqM); Potassium 4.1 mmol/L (3.5-5.1); Sodium 128 mmol/L (137-145); Total Bilirubin 0.5 mg/dL (0.2-1.3); Total Protein 6.6 g/dL (6.3-8.2)
--- NOTE | 2021-06-24 15:46 | ED ---
General Adult HPI - General Chief complaint: Abdominal Pain Stated complaint: Sick to her stomach Time Seen by Provider: 06/24/21 15:11 Source: patient Mode of arrival: ambulatory Limitations: no limitations - History of Present Illness Initial comments: 80-year-old female presents to the emergency department accompanied by her daughter, for evaluation of diffuse abdominal pain. Patient states she had a hiatal hernia repair 5 months ago in [place] and insists that something "is not right." Patient reports she has had increasing frequency of episodes of pain that occur with and without oral intake. Pain is poorly localized and often accompanied by nausea. States she took extra strength Tylenol and Zofran yesterday with minimal relief. States this is her fourth or fifth visit for the same complaint. - Related Data Home Medications Medication Instructions Recorded Confirmed Diltiazem HCl [Cardizem LA] 300 mg PO HS 03/20/21 06/24/21 Fosinopril Sodium [Monopril] 20 mg PO BID 03/20/21 06/24/21 Hydrochlorothiazide 12.5 mg PO DAILY PRN 03/20/21 06/24/21 [hydroCHLOROthiazide] Isosorbide Mononitrate ER [Imdur] 60 mg PO DAILY 03/20/21 06/24/21 Nitroglycerin Sl Tabs [Nitrostat] 0.4 mg SL Q5M PRN 03/20/21 06/24/21 Pantoprazole Sodium [Protonix] 20 mg PO DAILY 03/20/21 06/24/21 hydrALAZINE HCL [Apresoline] 25 mg PO BID 03/20/21 06/24/21 Aspirin EC [Ecotrin Low Dose] 81 mg PO Q48H 06/16/21 06/24/21 Ondansetron [Zofran] 4 mg PO Q12HR PRN 06/16/21 06/24/21 Polyethylene Glycol 3350 [Miralax] 17 gm PO DAILY 06/24/21 06/24/21 Allergies Allergy/AdvReac Type Severity Reaction Status Date / Time nitrofurantoin Allergy Nausea, Verified 06/24/21 17:14 [From Macrobid] itching Penicillins Allergy Anaphylaxis Verified 06/24/21 17:14 sulfamethoxazole Allergy Nausea, Verified 06/24/21 17:14 [From Bactrim] Itching trimethoprim [From Bactrim] Allergy Nausea, Verified 06/24/21 17:14 Itching aspirin AdvReac Abdominal Verified 06/24/21 17:14 Pain codeine AdvReac Confusion Verified 06/24/21 17:14 NSAIDS (Non-Steroidal AdvReac Abdominal Verified 06/24/21 17:14 Anti-Inflamma Pain Review of Systems ROS Statement: Those systems with pertinent positive or pertinent negative responses have been documented in the HPI. ROS Other: All systems not noted in ROS Statement are negative. Past Medical History Past Medical History: Hypertension History of Any Multi-Drug Resistant Organisms: None Reported Past Surgical History: Back Surgery, Hernia Repair, Orthopedic Surgery Additional Past Surgical History / Comment(s): Neck fusion, colon proloapse reconstructions 04/2021 Past Psychological History: No Psychological Hx Reported Smoking Status: Never smoker Past Alcohol Use History: None Reported Past Drug Use History: None Reported General Exam Limitations: no limitations (Well-developed, well-nourished female in no acute distress. Initial temperature 98.3, pulse 83, respirations 20, blood pressure 147/85, pulse ox 96% on room air.) General appearance: alert, in no apparent distress ENT exam: Present: normal exam, normal oropharynx, mucous membranes moist Neck exam: Present: normal inspection. Absent: tenderness, meningismus, lymphadenopathy Respiratory exam: Present: normal lung sounds bilaterally. Absent: respiratory distress, wheezes, rales, rhonchi, stridor Cardiovascular Exam: Present: regular rate, normal rhythm, normal heart sounds. Absent: systolic murmur, diastolic murmur, rubs, gallop, clicks GI/Abdominal exam: Present: soft, tenderness (Diffuse nonlocalized tenderness upon palpation of the epigastrium, left upper quadrant, and periumbilical region.), normal bowel sounds. Absent: distended, rebound Back exam: Present: normal inspection. Absent: CVA tenderness (R), CVA tend erness (L) Neurological exam: Present: alert, oriented X3, CN II-XII intact Psychiatric exam: Present: normal affect, normal mood Skin exam: Present: warm, dry, intact, normal color. Absent: rash Course Vital Signs 06/24/21 06/24/21 06/24/21 12:52 15:11 17:36 Temperature 98.3 F 98.1 F Pulse Rate 83 84 80 Respiratory 20 20 20 Rate Blood Pressure 147/85 127/67 126/73 O2 Sat by Pulse 96 95 97 Oximetry Medical Decision Making - Medical Decision Making 80-year-old female with a history of hiatal hernia repair and rectal prolapse surgeries presents to the emergency department for evaluation of abdominal pain. Patient is well-appearing. Upon physical exam, patient's abdomen is soft. Pain is poorly localized. Bowel sounds active throughout. Complaints of nausea. Patient has been having daily bowel movements; takes MiraLAX once a day. 1 L of IV fluids infused; Zofran given for nausea. Reports modest improvement in discomfort. EKG is normal normal sinus rhythm. CT of the abdomen and pelvis with oral and IV contrast was obtained, report shows moderate to severe fecal stasis with no inflammatory process. Laboratory work was reviewed. Mild dehydration evident; patient is hyponatremic with a sodium 128 and chloride 95. Urinalysis negative. Findings were discussed with patient. Suspect source of discomfort is related to gas and stool accumulation due to slow transit. Discussed importance of physical activity, increasing fluids, continued use of her MiraLAX, and avoiding use of Zofran if possible. Also suggested adding Colace twice daily; patient prefers to pick this up [id number]. She will be discharged home and encouraged to follow up with her surgeon and to call GI doctor to request an earlier appointment or be put on a wait list. Patient is scheduled to see her primary care provider tomorrow morning. Return parameters were discussed in detail. Patient and daughter verbalize understanding and agrees with this plan. These results were discussed with my attending Dr. Montoya. - Lab Data Result diagrams: 06/24/21 12:58 06/24/21 12:58 Lab Results 06/24/21 06/24/21 06/24/21 Range/Units 12:58 12:58 12:58 WBC 6.0 (3.8-10.6) k/uL RBC 4.75 (3.80-5.40) m/uL Hgb 14.5 (11.4-16.0) gm/dL Hct 42.1 (34.0-46.0) % MCV 88.5 (80.0-100.0) fL MCH 30.4 (25.0-35.0) pg MCHC 34.4 (31.0-37.0) g/dL RDW 13.1 (11.5-15.5) % Plt Count 323 (150-450) k/uL MPV 6.9 Neutrophils % 80 % Lymphocytes % 13 % Monocytes % 5 % Eosinophils % 0 % Basophils % 0 % Neutrophils # 4.8 (1.3-7.7) k/uL Lymphocytes # 0.8 L (1.0-4.8) k/uL Monocytes # 0.3 (0-1.0) k/uL Eosinophils # 0.0 (0-0.7) k/uL Basophils # 0.0 (0-0.2) k/uL Sodium 128 L (137-145) mmol/L Potassium 4.1 (3.5-5.1) mmol/L Chloride 95 L (98-107) mmol/L Carbon Dioxide 26 (22-30) mmol/L Anion Gap 7 mmol/L BUN 12 (7-17) mg/dL Creatinine 0.61 (0.52-1.04) mg/dL Est GFR (CKD-EPI)AfAm >90 (>60 ml/min/1.73 sqM) Est GFR (CKD-EPI)NonAf 87 (>60 ml/min/1.73 sqM) Glucose 137 H (74-99) mg/dL Calcium 9.9 (8.4-10.2) mg/dL Total Bilirubin 0.5 (0.2-1.3) mg/dL AST 27 (14-36) U/L ALT 20 (4-34) U/L Alkaline Phosphatase 112 (38-126) U/L Troponin I <0.012 (0.000-0.034) ng/mL Total Protein 6.6 (6.3-8.2) g/dL Albumin 4.1 (3.5-5.0) g/dL Lipase (23-300) U/L Urine Color Urine Appearance (Clear) Urine pH (5.0-8.0) Ur Specific [place] (1.001-1.035) Urine Protein (Negative) Urine Glucose (UA) (Negative) Urine Ketones (Negative) Urine Blood (Negative) Urine Nitrite (Negative) Urine Bilirubin (Negative) Urine Urobilinogen (<2.0) mg/dL Ur Leukocyte Esterase (Negative) 06/24/21 06/24/21 Range/Units 12:58 17:22 WBC (3.8-10.6) k/uL RBC (3.80-5.40) m/uL Hgb (11.4-16.0) gm/dL Hct (34.0-46.0) % MCV (80.0-100.0) fL MCH (25.0-35.0) pg MCHC (31.0-37.0) g/dL RDW (11.5-15.5) % Plt Count (150-450) k/uL MPV Neutrophils % % Lymphocytes % % Monocytes % % Eosinophils % % Basophils % % Neutrophils # (1.3-7.7) k/uL Lymphocytes # (1.0-4.8) k/uL Monocytes # (0-1.0) k/uL Eosinophils # (0-0.7) k/uL Basophils # (0-0.2) k/uL Sodium (137-145) mmol/L Potassium (3.5-5.1) mmol/L Chloride (98-107) mmol/L Carbon Dioxide (22-30) mmol/L Anion Gap mmol/L BUN (7-17) mg/dL Creatinine (0.52-1.04) mg/dL Est GFR (CKD-EPI)AfAm (>60 ml/min/1.73 sqM) Est GFR (CKD-EPI)NonAf (>60 ml/min/1.73 sqM) Glucose (74-99) mg/dL Calcium (8.4-10.2) mg/dL Total Bilirubin (0.2-1.3) mg/dL AST (14-36) U/L ALT (4-34) U/L Alkaline Phosphatase (38-126) U/L Troponin I (0.000-0.034) ng/mL Total Protein (6.3-8.2) g/dL Albumin (3.5-5.0) g/dL Lipase 114 (23-300) U/L Urine Color Yellow Urine Appearance Clear (Clear) Urine pH 6.5 (5.0-8.0) Ur Specific [place] 1.024 (1.001-1.035) Urine Protein Negative (Negative) Urine Glucose (UA) Negative (Negative) Urine Ketones Negative (Negative) Urine Blood Negative (Negative) Urine Nitrite Negative (Negative) Urine Bilirubin Negative (Negative) Urine Urobilinogen <2.0 (<2.0) mg/dL Ur Leukocyte Esterase Negative (Negative) - EKG Data EKG shows normal: sinus rhythm Rate: normal EKG Comments: EKG was obtained at 1258 and shows normal sinus rhythm with sinus arrhythmia. Ventricular rate 77, VA interval 132, QRS duration 74, QT/QTc 362/409. - Radiology Data Radiology results: report reviewed, image reviewed CT of the abdomen and pelvis with oral and IV contrast was obtained. Report was reviewed in its entirety. Impression per Dr. Crane is no acute inflammatory process identified. Moderate to severe fecal stasis. Disposition Clinical Impression: Constipation, Dehydration, Nausea Disposition: HOME SELF-CARE Condition: Stable Instructions (If sedation given, give patient instructions): Constipation (ED), Acute Nausea and Vomiting (ED), Gas and Bloating (ED) Additional Instructions: Increase fluids. Take Colace twice daily. Continue use of MiraLAX. Avoid Zofran if possible. Walk regularly. Follow-up with your primary care provider as scheduled tomorrow. Call your surgeon to schedule follow-up. Keep GI appointment. Is patient prescribed a controlled substance at d/c from ED?: No Referrals: Katy Lawrence DO [Primary Care Provider] - 1-2 days Time of Disposition: 18:09
[2021-06-24] MEDS ORDERED: ONDANSETRON 4 MG/2 ML VIAL IVP STA (15:48)
[2021-06-24] MEDS ORDERED: SODIUM CHLORIDE 0.9% 1,000 ML IV STA (15:48)
[2021-06-24] MEDS ORDERED: IOPAMIDOL CONTRAST (ORAL USE) VIAL PO PRN (15:48)
--- NOTE | 2021-06-24 16:32 | CT ---
EXAMINATION TYPE: CT abdomen pelvis w con DATE OF EXAM: 06/24/2021 COMPARISON: 03/20/2021 HISTORY: generalized pain, nausea CT DLP: 960.5 mGycm CONTRAST: CT scan of the abdomen and pelvis is performed with Oral Contrast and with IV Contrast, patient injec abigail with 100 mL of Isovue 300. FINDINGS: LUNG BASES-: No visible nodule. No infiltrate. LIVER/GB: The gallbladder surgically absent. No space occupying hepatic lesion. Biliary tree is of normal caliber. PANCREAS: No inflammation. No distinct mass. SPLEEN: No splenic enlargement. No lesion seen. ADRENALS: Stable adrenal nodularity and thickening. KIDNEYS/BLADDER: No hydronephrosis. No nephrolithiasis. No distinct renal mass. Urinary bladder g rossly unremarkable. BOWEL: Normal appendix. Normal bowel caliber. No inflammation. Postsurgical changes about the epiga strium. Moderate to severe fecal stasis throughout the colon. Surgical anastomosis sigmoid colon. GENITAL ORGANS: No gross abnormality. LYMPH NODES: No greater than 1cm abdominal or pelvic lymph nodes are appreciated. AORTA: No significant abnormality. OSSEOUS STRUCTURES: No significant abnormality is seen. OTHER: No significant additional abnormality is seen. IMPRESSION: 1. No acute inflammatory process identified. Moderate to severe fecal stasis.
[2021-06-24 17:30] LABS: Appearance,Urine Clear (Clear); Bilirubin,Urine Negative (Negative); Blood,Urine Negative (Negative); Color,Urine Yellow; Glucose,Urine (UA) Negative (Negative); Ketones,Urine Negative (Negative); Leukocyte Esterase,Urine Negative (Negative); Nitrite,Urine Negative (Negative); PH, Urine 6.5 (5.0-8.0); Protein,Urine Negative (Negative); Specific Gravity,Urine 1.024 (1.001-1.035); Urobilinogen,Urine <2.0 mg/dL (<2.0)
[2021-06-24 17:37] VITALS: BP 126/73; PULSE 80; TEMP 98.1
== END 2021-06-24 18:24 | disposition home or self-care (01) ==
LOC: EC 12:15
DX: K59.00 Constipation, unspecified (principal); E86.0 Dehydration; R11.0 Nausea; I10 Essential (primary) hypertension; Z79.82 Long term (current) use of aspirin; Z88.0 Allergy status to penicillin; Z88.1 Allergy status to other antibiotic agents; Z88.2 Allergy status to sulfonamides; Z88.5 Allergy status to narcotic agent
CPT/HCPCS: 99284; 96374; 96361 ×2; 36415; 80053; 83690; 84484; 85025; 81003; 74177; J2405; Q9967; 93005

== ENCOUNTER 2021-08-27 08:40 | Day surgery (SDC) | payer MEDICARE ==
[2021-08-25 14:41] VITALS: BMI 26.6
[~2021-08-27 08:40] MED LIST: LACTATED RINGERS 1,000 ML IV SCH
[2021-08-27 09:34] VITALS: TEMP 98
[2021-08-27] MEDS ORDERED: LIDOCAINE 1% INJ 10MG/ML (20 ML MDV) ONE (10:07)
[2021-08-27] MEDS ORDERED: PROPOFOL 10 MG/ML 20 ML VIAL IV ONE (10:07)
--- NOTE | 2021-08-27 10:24 | P.PCN ---
Date of Procedure: 08/27/21 Procedure(s) Performed: BRIEF HISTORY: Patient is a 80-year-old, pleasant, white female scheduled for an upper endoscopy as a part of evaluation of chronic persistent nausea for the last 6 months duration. She has hiatal hernia surgery in December of this year and since then she has been having worsening symptoms. She does have long-standing history of GERD and has been on Protonix 40 mg daily with some improvement in the nausea.. PROCEDURE PERFORMED: Esophagogastroduodenoscopy with biopsy. PREOPERATIVE DIAGNOSIS: Chronic nausea and history of GERD. IV sedation per anesthesia. PROCEDURE: After informed consent was obtained, the patient was brought into the endoscopy unit. IV sedation was administered by Anesthesia under continuous monitoring. Initially the Olympus GIF-140 video endoscope was inserted into the mouth. Esophagus intubated without any difficulty. It was gradually advanced into the stomach and duodenum and carefully examined. The bulb and the second part of the duodenum appeared normal. The scope at this time was withdrawn to the stomach, adequately insufflated with air, and upon careful examination, mucosa of the antrum and mild gastritis and biopsies were done from this area. The, body, cardia and the fundus appeared normal. The scope was then withdrawn into the esophagus. He was a moderate size hiatal hernia noted with the diaphragmatic impression at 38 cm from the incisors. The GE junction was located at 34 cm from the incisors. As long segment of Castano's esophagus extending from 30-34 cm from the incisors and multiple biopsies were done from this area. The rest of the esophagus appeared normal. There were no erosions or ulcerations seen and the patient tolerated the procedure well. IMPRESSION: 1. 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 2. Moderate size hiatal hernia 3. I'll antral gastritis. RECOMMENDATIONS: The findings of this examination were discussed with the patient as well as a family. She was advised to follow with the biopsy results. She'll continue her current medications and she'll be seen in office in 3-4 weeks..
[2021-08-27 10:30] VITALS: RESP 16
[2021-08-27 10:46] VITALS: BP 168/78; PULSE 84
== END 2021-08-27 11:25 | disposition home or self-care (01) ==
LOC: ORWHC2ENDO 08:40
PROVIDERS: ATTEND Internal Medicine Gastroenterology
DX: K22.70 Barrett's esophagus without dysplasia (principal); K44.9 Diaphragmatic hernia without obstruction or gangrene; K29.70 Gastritis, unspecified, without bleeding
CPT/HCPCS: 43239; 88305; J2001; J2704

== ENCOUNTER 2021-09-17 18:59 | Emergency (ER) | payer MEDICARE ==
[2021-09-17 19:29] VITALS: TEMP 99.8
[2021-09-17] MEDS ORDERED: SODIUM CHLORIDE 0.9% 500 ML 500 ML IV STA (20:25)
[2021-09-17 20:56] LABS: Appearance,Urine Clear (Clear); Bilirubin,Urine Negative (Negative); Blood,Urine Negative (Negative); Color,Urine Light Yellow; Glucose,Urine (UA) Negative (Negative); Ketones,Urine Negative (Negative); Leukocyte Esterase,Urine Negative (Negative); Nitrite,Urine Negative (Negative); Protein,Urine Negative (Negative); Specific Gravity,Urine 1.007 (1.001-1.035); Urobilinogen,Urine <2.0 mg/dL (<2.0)
[2021-09-17 20:58] LABS: Basophils % (A) 0 %; Eosinophils # (A) 0.1 k/uL (0-0.7); Eosinophils % (A) 2 %; HCT 41.4 % (34.0-46.0); HGB 13.5 gm/dL (11.4-16.0); Lymphocytes # (A) 1.5 k/uL (1.0-4.8); Lymphocytes % (A) 33 %; MCH 29.4 pg (25.0-35.0); MCHC 32.5 g/dL (31.0-37.0); MCV 90.4 fL (80.0-100.0); Monocytes # (A) 0.3 k/uL (0-1.0); Monocytes % (A) 7 %; Neutrophils # (A) 2.5 k/uL (1.3-7.7); Neutrophils % (A) 56 %; Platelet Count 251 k/uL (150-450); RBC 4.58 m/uL (3.80-5.40); RDW 13.7 % (11.5-15.5); WBC 4.5 k/uL (3.8-10.6)
[2021-09-17 21:04] LABS: ALT 17 U/L (4-34); AST 25 U/L (14-36); African American GFR (CKD) >90 (>60 ml/min/1.73 sqM); Alkaline Phosphatase 134 U/L (38-126); Anion Gap 7 mmol/L; Blood Urea Nitrogen 14 mg/dL (7-17); Calcium 9.3 mg/dL (8.4-10.2); Carbon Dioxide 24 mmol/L (22-30); Chloride 101 mmol/L (98-107); Glucose 130 mg/dL (74-99); INR 0.9 (<1.2); Non-African American GFR(CKD) 88 (>60 ml/min/1.73 sqM); Partial Thromboplastin Time 23.9 sec (22.0-30.0); Potassium 4.1 mmol/L (3.5-5.1); Prothrombin Time 9.9 sec (9.0-12.0); Sodium 132 mmol/L (137-145); Total Bilirubin 0.6 mg/dL (0.2-1.3); Total Protein 6.3 g/dL (6.3-8.2)
--- NOTE | 2021-09-17 21:11 | XR ---
EXAMINATION TYPE: XR chest 2V DATE OF EXAM: 09/17/2021 9:05 PM COMPARISON:None TECHNIQUE: Frontal and lateral views of the chest. CLINICAL INDICATION:Female, 80 years old with history of Weakness; FINDINGS: Lungs/Pleura: There is no evidence of pleural effusion, focal consolidation, or pneumothorax. Pulmonary vascularity: Unremarkable. Heart/mediastinum: Cardiomediastinal silhouette is unremarkable. Atherosclerotic calcifications are seen in the aorta. Musculoskeletal: No acute osseous pathology. IMPRESSION: No acute cardiopulmonary disease/process.
[2021-09-17 21:23] VITALS: BP 153/80; PULSE 83; RESP 16
--- NOTE | 2021-09-17 21:25 | ED ---
General Adult HPI - General Chief complaint: Headache Stated complaint: High BP Time Seen by Provider: 09/17/21 19:56 Source: patient Mode of arrival: wheelchair Limitations: no limitations - History of Present Illness Initial comments: This 80-year-old female presents to the emergency department with high blood pressure at home and it was 190/85. Patient states she has also noticed heart palpitations, fatigue, head fullness, and urinary urgency x1 day. She states she feels more tired than usual but does not have any pain anywhere. Patient states last night she was awoken with the feeling of her heart beating fast which seemed to resolve on its own. She also states during the last day she has noticed she feels like she has to urinate more frequently during the night. Patient states she does self cath and has for the last 2 years. Patient denies any chest pain, shortness breath, abdominal pain, change in vision/blurred vision, vision loss, blood in urine, change in bowel, one-sided weakness, speech changes, dizziness, lightheadedness, change in appetite. Patient denies any jaw pain, temporal pain, heart palpitations currently. - Related Data Home Medications Medication Instructions Recorded Confirmed Diltiazem HCl [Cardizem LA] 300 mg PO HS 03/20/21 09/17/21 Fosinopril Sodium [Monopril] 20 mg PO BID 03/20/21 09/17/21 Hydrochlorothiazide 12.5 mg PO DAILY 03/20/21 09/17/21 [hydroCHLOROthiazide] Isosorbide Mononitrate ER [Imdur] 60 mg PO DAILY 03/20/21 09/17/21 Nitroglycerin Sl Tabs [Nitrostat] 0.4 mg SL Q5M PRN 03/20/21 09/17/21 Pantoprazole Sodium [Protonix] 20 mg PO AC-BRKFST 03/20/21 09/17/21 hydrALAZINE HCL [Apresoline] 25 mg PO BID 03/20/21 09/17/21 Aspirin EC [Ecotrin Low Dose] 81 mg PO DAILY 06/16/21 09/17/21 Ondansetron [Zofran] 4 mg PO Q12HR PRN 06/16/21 09/17/21 Polyethylene Glycol 3350 [Miralax] 17 gm PO BID 06/24/21 09/17/21 Famotidine/Ca Carb/Mag Hydrox 1 tab PO DAILY 09/17/21 09/17/21 [Pepcid Complete Tablet Chew] Melatonin 5 mg PO HS 09/17/21 09/17/21 Multivit-Min/FA/Lycopen/Lutein 1 tab PO BID 09/17/21 09/17/21 [Centrum Silver Tablet] Simethicone [Gas-X] 125 mg PO TID PRN 09/17/21 09/17/21 Vit C/E/Zn/Coppr/Lutein/Zeaxan 1 cap PO BID 09/17/21 09/17/21 [Preservision Areds 2 Softgel] Allergies Allergy/AdvReac Type Severity Reaction Status Date / Time nitrofurantoin Allergy Nausea, Verified 09/17/21 21:53 [From Macrobid] itching Penicillins Allergy Anaphylaxis Verified 09/17/21 21:53 sulfamethoxazole Allergy Nausea, Verified 09/17/21 21:53 [From Bactrim] Itching trimethoprim [From Bactrim] Allergy Nausea, Verified 09/17/21 21:53 Itching aspirin AdvReac Abdominal Verified 09/17/21 21:53 Pain codeine AdvReac Confusion Verified 09/17/21 21:53 NSAIDS (Non-Steroidal AdvReac Abdominal Verified 09/17/21 21:53 Anti-Inflamma Pain Review of Systems ROS Statement: Those systems with pertinent positive or pertinent negative responses have been documented in the HPI. ROS Other: All systems not noted in ROS Statement are negative. Past Medical History Past Medical History: Chest Pain / Angina, Hypertension History of Any Multi-Drug Resistant Organisms: None Reported Past Surgical History: Back Surgery, Heart Catheterization, Hernia Repair, Orthopedic Surgery Additional Past Surgical History / Comment(s): Neck fusion. colon proloapse reconstructions 04/2021. hiatal hernia repair x2 12/2020 Past Anesthesia/Blood Transfusion Reactions: No Reported Reaction Past Psychological History: No Psychological Hx Reported Smoking Status: Former smoker Past Alcohol Use History: None Reported Past Drug Use History: None Reported General Exam Limitations: no limitations General appearance: alert, in no apparent distress Head exam: Present: atraumatic, normocephalic, normal inspection Eye exam: Present: normal appearance, EOMI. Absent: nystagmus ENT exam: Present: normal exam, mucous membranes moist Neck exam: Present: normal inspection, full ROM. Absent: tenderness, meningismus, lymphadenopathy Respiratory exam: Present: normal lung sounds bilaterally. Absent: respiratory distress, wheezes, rales, rhonchi, stridor Cardiovascular Exam: Present: regular rate, normal rhythm, normal heart sounds. Absent: systolic murmur, diastolic murmur, rubs, gallop, clicks GI/Abdominal exam: Present: soft, normal bowel sounds. Absent: distended, tenderness, guarding, rebound, rigid Extremities exam: Present: normal inspection, full ROM, normal capillary refill. Absent: tenderness, pedal edema, joint swelling, calf tenderness Back exam: Present: normal inspection. Absent: tenderness, paraspinal tenderness, vertebral tenderness Neurological exam: Present: alert, oriented X3, CN II-XII intact, normal gait, other ([id number], rapid alternating movements, [id number] normal 5 out of 5 strength in bilateral upper and bilateral lower extremities.) Psychiatric exam: Present: normal affect, normal mood Skin exam: Present: warm, dry, intact, normal color. Absent: rash Course Vital Signs 09/17/21 09/17/21 19:23 21:22 Temperature 99.8 F H Pulse Rate 95 83 Respiratory 20 16 Rate Blood Pressure 179/90 153/80 O2 Sat by Pulse 98 98 Oximetry - Reevaluation(s) Reevaluation #1: 09/17/21 23:14 Patient states after she received some fluid that she is feeling much better. Patient denies any headache, chest pain, shortness of breath, dizziness, one-s ided weakness. 09/17/21 23:19 EKG Findings - EKG Comments: EKG Findings:: EKG impression: Ventricular rate 83 bpm. UT interval 150. QRS duration 70. QT/QTC 360/423. No ST elevations or depressions noted. Medical Decision Making - Medical Decision Making This 72-year-old female presents emergency Department with urinary urgency, hesitancy, head fullness, and one episode of heart palpitations 1 day. Labs all unremarkable. Urine unremarkable. Coronavirus and influenza A and B not detected. Blood pressure rechecked with BP 150/86, patient has no blurred vision or headache at this time. Chest x-ray impression: No acute cardiopulmonary disease/s. No evidence of pleural fusion, focal consolidation, pneumothorax, cardiomediastinal silhouette is unremarkable, no acute osseous pathology. Brain CT impression: No acute intracranial process. 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 Patient to follow-up with primary care provider in 24-48 hours. Patient to follow up with cardiology next 24-48 hours. Patient and daughter verbally agreed to plan. Strict return precautions were discussed. Patient sent home in stable condition. Case reviewed with my attending, . - Lab Data Result diagrams: 09/17/21 20:47 09/17/21 20:47 Lab Results 09/17/21 09/17/21 09/17/21 Range/Units 20:47 20:47 20:47 WBC 4.5 (3.8-10.6) k/uL RBC 4.58 (3.80-5.40) m/uL Hgb 13.5 (11.4-16.0) gm/dL Hct 41.4 (34.0-46.0) % MCV 90.4 (80.0-100.0) fL MCH 29.4 (25.0-35.0) pg MCHC 32.5 (31.0-37.0) g/dL RDW 13.7 (11.5-15.5) % Plt Count 251 (150-450) k/uL MPV 7.0 Neutrophils % 56 % Lymphocytes % 33 % Monocytes % 7 % Eosinophils % 2 % Basophils % 0 % Neutrophils # 2.5 (1.3-7.7) k/uL Lymphocytes # 1.5 (1.0-4.8) k/uL Monocytes # 0.3 (0-1.0) k/uL Eosinophils # 0.1 (0-0.7) k/uL Basophils # 0.0 (0-0.2) k/uL PT 9.9 (9.0-12.0) sec INR 0.9 (<1.2) APTT 23.9 (22.0-30.0) sec Sodium (137-145) mmol/L Potassium (3.5-5.1) mmol/L Chloride (98-107) mmol/L Carbon Dioxide (22-30) mmol/L Anion Gap mmol/L BUN (7-17) mg/dL Creatinine (0.52-1.04) mg/dL Est GFR (CKD-EPI)AfAm (>60 ml/min/1.73 sqM) Est GFR (CKD-EPI)NonAf (>60 ml/min/1.73 sqM) Glucose (74-99) mg/dL Plasma Lactic Acid Rogelio (0.7-2.0) mmol/L Calcium (8.4-10.2) mg/dL Total Bilirubin (0.2-1.3) mg/dL AST (14-36) U/L ALT (4-34) U/L Alkaline Phosphatase (38-126) U/L Troponin I (0.000-0.034) ng/mL Total Protein (6.3-8.2) g/dL Albumin (3.5-5.0) g/dL Urine Color Light Yellow Urine Appearance Clear (Clear) Urine pH 7.0 (5.0-8.0) Ur Specific [place] 1.007 (1.001-1.035) Urine Protein Negative (Negative) Urine Glucose (UA) Negative (Negative) Urine Ketones Negative (Negative) Urine Blood Negative (Negative) Urine Nitrite Negative (Negative) Urine Bilirubin Negative (Negative) Urine Urobilinogen <2.0 (<2.0) mg/dL Ur Leukocyte Esterase Negative (Negative) Coronavirus (PCR) (Not Detectd) Influenza Type A RNA (Not Detectd) Influenza Type B (PCR) (Not Detectd) 09/17/21 09/17/21 09/17/21 Range/Units 20:47 20:47 20:47 WBC (3.8-10.6) k/uL RBC (3.80-5.40) m/uL Hgb (11.4-16.0) gm/dL Hct (34.0-46.0) % MCV (80.0-100.0) fL MCH (25.0-35.0) pg MCHC (31.0-37.0) g/dL RDW (11.5-15.5) % Plt Count (150-450) k/uL MPV Neutrophils % % Lymphocytes % % Monocytes % % Eosinophils % % Basophils % % Neutrophils # (1.3-7.7) k/uL Lymphocytes # (1.0-4.8) k/uL Monocytes # (0-1.0) k/uL Eosinophils # (0-0.7) k/uL Basophils # (0-0.2) k/uL PT (9.0-12.0) sec INR (<1.2) APTT (22.0-30.0) sec Sodium 132 L (137-145) mmol/L Potassium 4.1 (3.5-5.1) mmol/L Chloride 101 (98-107) mmol/L Carbon Dioxide 24 (22-30) mmol/L Anion Gap 7 mmol/L BUN 14 (7-17) mg/dL Creatinine 0.59 (0.52-1.04) mg/dL Est GFR (CKD-EPI)AfAm >90 (>60 ml/min/1.73 sqM) Est GFR (CKD-EPI)NonAf 88 (>60 ml/min/1.73 sqM) Glucose 130 H (74-99) mg/dL Plasma Lactic Acid Rogelio 0.7 (0.7-2.0) mmol/L Calcium 9.3 (8.4-10.2) mg/dL Total Bilirubin 0.6 (0.2-1.3) mg/dL AST 25 (14-36) U/L ALT 17 (4-34) U/L Alkaline Phosphatase 134 H (38-126) U/L Troponin I <0.012 (0.000-0.034) ng/mL Total Protein 6.3 (6.3-8.2) g/dL Albumin 4.0 (3.5-5.0) g/dL Urine Color Urine Appearance (Clear) Urine pH (5.0-8.0) Ur Specific [place] (1.001-1.035) Urine Protein (Negative) Urine Glucose (UA) (Negative) Urine Ketones (Negative) Urine Blood (Negative) Urine Nitrite (Negative) Urine Bilirubin (Negative) Urine Urobilinogen (<2.0) mg/dL Ur Leukocyte Esterase (Negative) Coronavirus (PCR) (Not Detectd) Influenza Type A RNA (Not Detectd) Influenza Type B (PCR) (Not Detectd) 09/17/21 09/17/21 Range/Units 20:57 21:43 WBC (3.8-10.6) k/uL RBC (3.80-5.40) m/uL Hgb (11.4-16.0) gm/dL Hct (34.0-46.0) % MCV (80.0-100.0) fL MCH (25.0-35.0) pg MCHC (31.0-37.0) g/dL RDW (11.5-15.5) % Plt Count (150-450) k/uL MPV Neutrophils % % Lymphocytes % % Monocytes % % Eosinophils % % Basophils % % Neutrophils # (1.3-7.7) k/uL Lymphocytes # (1.0-4.8) k/uL Monocytes # (0-1.0) k/uL Eosinophils # (0-0.7) k/uL Basophils # (0-0.2) k/uL PT (9.0-12.0) sec INR (<1.2) APTT (22.0-30.0) sec Sodium (137-145) mmol/L Potassium (3.5-5.1) mmol/L Chloride (98-107) mmol/L Carbon Dioxide (22-30) mmol/L Anion Gap mmol/L BUN (7-17) mg/dL Creatinine (0.52-1.04) mg/dL Est GFR (CKD-EPI)AfAm (>60 ml/min/1.73 sqM) Est GFR (CKD-EPI)NonAf (>60 ml/min/1.73 sqM) Glucose (74-99) mg/dL Plasma Lactic Acid Rogelio (0.7-2.0) mmol/L Calcium (8.4-10.2) mg/dL Total Bilirubin (0.2-1.3) mg/dL AST (14-36) U/L ALT (4-34) U/L Alkaline Phosphatase (38-126) U/L Troponin I (0.000-0.034) ng/mL Total Protein (6.3-8.2) g/dL Albumin (3.5-5.0) g/dL Urine Color Urine Appearance (Clear) Urine pH (5.0-8.0) Ur Specific [place] (1.001-1.035) Urine Protein (Negative) Urine Glucose (UA) (Negative) Urine Ketones (Negative) Urine Blood (Negative) Urine Nitrite (Negative) Urine Bilirubin (Negative) Urine Urobilinogen (<2.0) mg/dL Ur Leukocyte Esterase (Negative) Coronavirus (PCR) Not Detected (Not Detectd) Influenza Type A RNA Not Detected (Not Detectd) Influenza Type B (PCR) Not Detected (Not Detectd) Disposition Clinical Impression: Palpitations Disposition: HOME SELF-CARE Condition: Stable Instructions (If sedation given, give patient instructions): Heart Palpitations (ED) Additional Instructions: These return to the emergency department with any concerning, new, or worsening symptoms. 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 Is patient prescribed a controlled substance at d/c from ED?: No Referrals: Kirstie Alonso MD [Primary Care Provider] - 1-2 days Danny Holley MD [STAFF PHYSICIAN] - 1-2 days Time of Disposition: 23:06
--- NOTE | 2021-09-17 21:31 | CT ---
EXAMINATION TYPE: CT brain wo con CT DLP: 1074.4 mGycm, Automated exposure control for dose reduction was used. DATE OF EXAM: 09/17/2021 9:20 PM COMPARISON: None. CLINICAL INDICATION:Female, 80 years old with history of weakness. High BP TECHNIQUE: Brain: Multiple axial CT images of the brain were obtained without IV contrast. FINDINGS: Brain: Extra-axial spaces: No abnormal extra-axial fluid collections. Ventricular system: Dilatation in proportion to cerebral atrophy. Cerebral parenchyma: For density within the right caudate nucleus. Cerebral atrophy. No acute intrapa renchymal hemorrhage or mass effect. The conroy-white junction is well differentiated. Scattered hypoa ttenuating areas are seen within the white matter. Cerebellum: Unremarkable. Mass effect: No evidence of midline shift. Intracranial vasculature: Atherosclerotic calcifications of the intracranial vessels. Soft tissues: Normal. Calvarium/osseous structures: No depressed skull fracture. Paranasal sinuses and mastoid air cells: Nasal turbinates are thickened. Visualized orbits: Orbital contents are intact. IMPRESSION: 1. No acute intracranial process. 2. Remote right caudate nucleus lacunar injury along with nonspecific white matter changes likely sec ondary to chronic microangiopathy.
== END 2021-09-17 23:20 | disposition home or self-care (01) ==
LOC: EC 18:59
DX: R00.2 Palpitations (principal); Z20.822 Contact with and (suspected) exposure to COVID-19; I10 Essential (primary) hypertension; Z87.891 Personal history of nicotine dependence; Z79.82 Long term (current) use of aspirin; Z79.899 Other long term (current) drug therapy
CPT/HCPCS: 36415; 70450; 71046; 80053; 81003; 83605; 84484; 85025; 85610; 85730; 87502; 87635; 93005; 99285

== ENCOUNTER 2021-09-19 18:11 | Observation (INO) | payer MEDICARE ==
--- NOTE | 2021-09-19 18:20 | ED ---
General Adult HPI - General Chief complaint: Weakness Stated complaint: Hypertension Time Seen by Provider: 09/19/21 18:19 Source: patient Mode of arrival: EMS Limitations: no limitations - History of Present Illness Initial comments: Patient presents to the ED by ambulance for evaluation. Patient states that she "doesn't feel right", and she states that she has felt this way since about noon today. Patient states that she has checked her blood pressure multiple times today, and she states that her blood pressure readings have been elevated. Patient also states that she has felt generally weak today. Patient also admits to having a very mild "soreness" along the left side of her head, her left shoulder and the left side of her chest. Patient states that she is uncertain of the cause of her symptoms. Patient states that she has been taking all of her medications as prescribed, and she denies any recent change in her medications. Patient denies trauma/injury/fall, fever or chills, focal numbness/weakness/neuro deficit, visual changes, speech difficulty, neck/back pain, dyspnea, cough or cold symptoms, palpitations, abdominal pain, na usea/vomiting/diarrhea, bloody or melanotic stool, leg or calf swelling or pain, or any other symptoms or complaints. Patient states that she self caths, and has been doing so for years. Patient denies any recent change in her urine. Patient states that she is fully vaccinated for Covid. Patient was given aspirin 324 mg and nitroglycerin 2 by EMS. - Related Data Home Medications Medication Instructions Recorded Confirmed Diltiazem HCl [Cardizem LA] 300 mg PO HS 03/20/21 09/19/21 Fosinopril Sodium [Monopril] 20 mg PO BID 03/20/21 09/19/21 Hydrochlorothiazide 12.5 mg PO DAILY 03/20/21 09/19/21 [hydroCHLOROthiazide] Isosorbide Mononitrate ER [Imdur] 60 mg PO DAILY 03/20/21 09/19/21 Nitroglycerin Sl Tabs [Nitrostat] 0.4 mg SL Q5M PRN 03/20/21 09/19/21 Pantoprazole Sodium [Protonix] 20 mg PO AC-BRKFST 03/20/21 09/19/21 hydrALAZINE HCL [Apresoline] 25 mg PO BID 03/20/21 09/19/21 Aspirin EC [Ecotrin Low Dose] 81 mg PO DAILY 06/16/21 09/19/21 Ondansetron [Zofran] 4 mg PO Q12HR PRN 06/16/21 09/19/21 Polyethylene Glycol 3350 [Miralax] 17 gm PO BID 06/24/21 09/19/21 Famotidine/Ca Carb/Mag Hydrox 1 tab PO DAILY 09/17/21 09/19/21 [Pepcid Complete Tablet Chew] Melatonin 5 mg PO HS 09/17/21 09/19/21 Multivit-Min/FA/Lycopen/Lutein 1 tab PO BID 09/17/21 09/19/21 [Centrum Silver Tablet] Simethicone [Gas-X] 125 mg PO TID PRN 09/17/21 09/19/21 Vit C/E/Zn/Coppr/Lutein/Zeaxan 1 cap PO BID 09/17/21 09/19/21 [Preservision Areds 2 Softgel] Allergies Allergy/AdvReac Type Severity Reaction Status Date / Time nitrofurantoin Allergy Nausea, Verified 09/19/21 18:18 [From Macrobid] itching Penicillins Allergy Anaphylaxis Verified 09/19/21 18:18 sulfamethoxazole Allergy Nausea, Verified 09/19/21 18:18 [From Bactrim] Itching trimethoprim [From Bactrim] Allergy Nausea, Verified 09/19/21 18:18 Itching aspirin AdvReac Abdominal Verified 09/19/21 18:18 Pain codeine AdvReac Confusion Verified 09/19/21 18:18 NSAIDS (Non-Steroidal AdvReac Abdominal Verified 09/19/21 18:18 Anti-Inflamma Pain Review of Systems ROS Statement: Those systems with pertinent positive or pertinent negative responses have been documented in the HPI. ROS Other: All systems not noted in ROS Statement are negative. Past Medical History Past Medical History: Chest Pain / Angina, Hypertension History of Any Multi-Drug Resistant Organisms: None Reported Past Surgical History: Back Surgery, Heart Catheterization, Hernia Repair, Orthopedic Surgery Additional Past Surgical History / Comment(s): Neck fusion. colon proloapse reconstructions 04/2021. hiatal hernia repair x2 12/2020 Past Anesthesia/Blood Transfusion Reactions: No Reported Reaction Past Psychological History: No Psychological Hx Reported Smoking Status: Former smoker Past Alcohol Use History: None Reported Past Drug Use History: None Reported General Exam Limitations: no limitations General appearance: alert, in no apparent distress Head exam: Present: atraumatic, normocephalic Eye exam: Present: normal appearance, PERRL, EOMI ENT exam: Present: normal oropharynx, mucous membranes moist Neck exam: Present: other (Trachea is in midline). Absent: tenderness, meningismus Respiratory exam: Present: normal lung sounds bilaterally. Absent: respiratory distress, wheezes, rales, rhonchi, stridor Cardiovascular Exam: Present: regular rate, normal rhythm, normal heart sounds, other (Normal radial pulses bilaterally) GI/Abdominal exam: Present: soft. Absent: distended, tenderness, guarding Extremities exam: Present: full ROM. Absent: tenderness, pedal edema, calf tenderness Neurological exam: Present: alert, oriented X3, CN II-XII intact. Absent: motor sensory deficit Psychiatric exam: Present: normal affect, normal mood Skin exam: Present: warm, dry, intact, normal color Course Vital Signs 09/19/21 09/19/21 09/19/21 18:12 19:30 20:00 Temperature 98.2 F Pulse Rate 92 94 92 Respiratory 18 18 18 Rate Blood Pressure 172/102 162/88 161/91 O2 Sat by Pulse 97 95 95 Oximetry - Reevaluation(s) Reevaluation #1: 09/19/21 21:02 Case, H&P, test results and EMS management were discussed with Dr. Morris. She accepts hospital admission. She has no further recommendations at this time. 09/19/21 21:07 Patient denies development of any new symptoms while in the ED. Patient's blood pressure has improved while in the ED. Patient remains alert and breathing comfortably. Patient is aware of her test results, and she agrees with hospital admission at this time. EKG Findings - EKG Comments: EKG Findings:: Normal sinus rhythm, ventricular rate of 94 bpm, no ectopy, normal OH and QRS intervals, normal QT interval, normal axis, no ST or T-wave abnormality Medical Decision Making - Medical Decision Making Patient's head CT shows no acute abnormality. Patient's CT angiography chest with IV contrast is negative. Patient's EKG is fairly unremarkable, and her troponin is negative. Patient's blood pressure has improved while in the ED. Given the patient's reported symptoms and elevated blood pressure, will admit the patient to the hospital for serial troponins, cardiac monitoring, observation and further evaluation. Dr. Morris has accepted hospital admission. Patient was given aspirin by EMS. - Lab Data Result diagrams: 09/19/21 18:56 09/19/21 18:56 Lab Results 09/19/21 09/19/21 09/19/21 Range/Units 18:56 18:56 18:56 WBC 4.6 (3.8-10.6) k/uL RBC 4.52 (3.80-5.40) m/uL Hgb 13.4 (11.4-16.0) gm/dL Hct 41.2 (34.0-46.0) % MCV 91.1 (80.0-100.0) fL MCH 29.7 (25.0-35.0) pg MCHC 32.6 (31.0-37.0) g/dL RDW 13.6 (11.5-15.5) % Plt Count 237 (150-450) k/uL MPV 7.7 Neutrophils % 63 % Lymphocytes % 26 % Monocytes % 7 % Eosinophils % 2 % Basophils % 0 % Neutrophils # 2.9 (1.3-7.7) k/uL Lymphocytes # 1.2 (1.0-4.8) k/uL Monocytes # 0.3 (0-1.0) k/uL Eosinophils # 0.1 (0-0.7) k/uL Basophils # 0.0 (0-0.2) k/uL PT 10.0 (9.0-12.0) sec INR 0.9 (<1.2) APTT 23.5 (22.0-30.0) sec D-Dimer 1.50 H (<0.60) mg/L FEU Sodium 130 L (137-145) mmol/L Potassium 3.9 (3.5-5.1) mmol/L Chloride 98 (98-107) mmol/L Carbon Dioxide 23 (22-30) mmol/L Anion Gap 9 mmol/L BUN 13 (7-17) mg/dL Creatinine 0.52 (0.52-1.04) mg/dL Est GFR (CKD-EPI)AfAm >90 (>60 ml/min/1.73 sqM) Est GFR (CKD-EPI)NonAf >90 (>60 ml/min/1.73 sqM) Glucose 102 H (74-99) mg/dL Calcium 9.3 (8.4-10.2) mg/dL Magnesium 1.9 (1.6-2.3) mg/dL Total Bilirubin 0.6 (0.2-1.3) mg/dL AST 26 (14-36) U/L ALT 17 (4-34) U/L Alkaline Phosphatase 122 (38-126) U/L Troponin I (0.000-0.034) ng/mL Total Protein 6.1 L (6.3-8.2) g/dL Albumin 3.8 (3.5-5.0) g/dL TSH 2.460 (0.465-4.680) mIU/L Coronavirus (PCR) (Not Detectd) 09/19/21 09/19/21 Range/Units 18:56 18:57 WBC (3.8-10.6) k/uL RBC (3.80-5.40) m/uL Hgb (11.4-16.0) gm/dL Hct (34.0-46.0) % MCV (80.0-100.0) fL MCH (25.0-35.0) pg MCHC (31.0-37.0) g/dL RDW (11.5-15.5) % Plt Count (150-450) k/uL MPV Neutrophils % % Lymphocytes % % Monocytes % % Eosinophils % % Basophils % % Neutrophils # (1.3-7.7) k/uL Lymphocytes # (1.0-4.8) k/uL Monocytes # (0-1.0) k/uL Eosinophils # (0-0.7) k/uL Basophils # (0-0.2) k/uL PT (9.0-12.0) sec INR (<1.2) APTT (22.0-30.0) sec D-Dimer (<0.60) mg/L FEU Sodium (137-145) mmol/L Potassium (3.5-5.1) mmol/L Chloride (98-107) mmol/L Carbon Dioxide (22-30) mmol/L Anion Gap mmol/L BUN (7-17) mg/dL Creatinine (0.52-1.04) mg/dL Est GFR (CKD-EPI)AfAm (>60 ml/min/1.73 sqM) Est GFR (CKD-EPI)NonAf (>60 ml/min/1.73 sqM) Glucose (74-99) mg/dL Calcium (8.4-10.2) mg/dL Magnesium (1.6-2.3) mg/dL Total Bilirubin (0.2-1.3) mg/dL AST (14-36) U/L ALT (4-34) U/L Alkaline Phosphatase (38-126) U/L Troponin I <0.012 (0.000-0.034) ng/mL Total Protein (6.3-8.2) g/dL Albumin (3.5-5.0) g/dL TSH (0.465-4.680) mIU/L Coronavirus (PCR) Not Detected (Not Detectd) - Radiology Data Chest x-ray: No active cardiopulmonary disease. No change. Noncontrast head CT: Cerebral atrophy. No acute intracranial abnormality. No change. CT angiography chest with IV contrast: No evidence of pulmonary embolism. Cardiomegaly. Atherosclerotic vascular disease. No aneurysm. The ascending aorta measures 3.6 cm. No suspicious pulmonary mass. Disposition Clinical Impression: Generalized weakness, Headache, Chest pain, Hypertension Disposition: ADMITTED IP TO THIS HOSP Condition: Stable Is patient prescribed a controlled substance at d/c from ED?: No Referrals: Kirstie Alonso MD [Primary Care Provider] - 1-2 days Time of Disposition: 21:04
--- NOTE | 2021-09-19 19:15 | XR ---
EXAMINATION TYPE: XR chest 1V portable DATE OF EXAM: 09/19/2021 COMPARISON: 09/17/2021 HISTORY: Chest pain TECHNIQUE: FINDINGS: There is no heart failure nor confluent pneumonic infiltrate. Costophrenic angles are clear . Thoracic aorta is atheromatous. There are chest leads. Bony thorax is intact. There is some arthrit ic changes in the shoulder joints. IMPRESSION: No active cardiopulmonary disease. No change.
--- NOTE | 2021-09-19 19:18 | CT ---
EXAMINATION TYPE: CT brain wo con DATE OF EXAM: 09/19/2021 COMPARISON: 09/17/2021 HISTORY: Left sided headache. CT DLP: 1072.4 mGycm Automated exposure control for dose reduction was used. There is cerebral cortical atrophy. There is no mass effect or midline shift. There is no sign of int racranial hemorrhage. The calvarium is intact. The skull base is intact. There is slight widening of the subdural space over the right parietal convexity. This is probably asymmetric atrophy. There is n ormal aeration of the mastoid sinuses. IMPRESSION: Cerebral atrophy. No acute intracranial abnormality. No change.
[2021-09-19 19:21] LABS: Basophils % (A) 0 %; Eosinophils # (A) 0.1 k/uL (0-0.7); Eosinophils % (A) 2 %; HCT 41.2 % (34.0-46.0); HGB 13.4 gm/dL (11.4-16.0); Lymphocytes # (A) 1.2 k/uL (1.0-4.8); Lymphocytes % (A) 26 %; MCH 29.7 pg (25.0-35.0); MCHC 32.6 g/dL (31.0-37.0); MCV 91.1 fL (80.0-100.0); Mean Platelet Volume 7.7; Monocytes # (A) 0.3 k/uL (0-1.0); Monocytes % (A) 7 %; Neutrophils # (A) 2.9 k/uL (1.3-7.7); Neutrophils % (A) 63 %; Platelet Count 237 k/uL (150-450); RBC 4.52 m/uL (3.80-5.40); RDW 13.6 % (11.5-15.5); WBC 4.6 k/uL (3.8-10.6)
[2021-09-19 19:31] LABS: ALT 17 U/L (4-34); AST 26 U/L (14-36); African American GFR (CKD) >90 (>60 ml/min/1.73 sqM); Albumin 3.8 g/dL (3.5-5.0); Alkaline Phosphatase 122 U/L (38-126); Anion Gap 9 mmol/L; Blood Urea Nitrogen 13 mg/dL (7-17); Calcium 9.3 mg/dL (8.4-10.2); Carbon Dioxide 23 mmol/L (22-30); Chloride 98 mmol/L (98-107); Glucose 102 mg/dL (74-99); Magnesium 1.9 mg/dL (1.6-2.3); Non-African American GFR(CKD) >90 (>60 ml/min/1.73 sqM); Potassium 3.9 mmol/L (3.5-5.1); Sodium 130 mmol/L (137-145); Total Bilirubin 0.6 mg/dL (0.2-1.3); Total Protein 6.1 g/dL (6.3-8.2)
[2021-09-19 19:41] LABS: INR 0.9 (<1.2); Partial Thromboplastin Time 23.5 sec (22.0-30.0)
--- NOTE | 2021-09-19 20:41 | CT ---
EXAMINATION TYPE: CT chest angio for PE DATE OF EXAM: 09/19/2021 COMPARISON: None HISTORY: elevatd ddimer CT DLP: 272.8 mGycm Automated exposure control for dose reduction was used. CONTRAST: Performed with IV Contrast, patient injected with 80 mL of Isovue 370. There are Three-D postprocessed images. There is coarse interstitial infiltrate in the posterior lung sage. Thoracic aorta is atheromatous. There is very minimal plaque formation in the descending thoracic aorta. Heart is enlarged. There is no pericardial effusion. There is no pleural effusion. There are no hilar masses. There is no mediastinal adenopathy. Thoracic spine is intact. Sternum is i ntact. There is no compression fracture. There is no evidence of filling defect in the pulmonary arteries. IMPRESSION: No evidence of pulmonary embolism. Cardiomegaly. Atherosclerotic vascular disease. No aneurysm. The a scending aorta measures 3.6 cm. No suspicious pulmonary mass.
[2021-09-19 21:02] LABS: Appearance,Urine Clear (Clear); Bilirubin,Urine Negative (Negative); Blood,Urine Negative (Negative); Color,Urine Colorless; Glucose,Urine (UA) Negative (Negative); Ketones,Urine Negative (Negative); Leukocyte Esterase,Urine Negative (Negative); Nitrite,Urine Negative (Negative); PH, Urine 6.5 (5.0-8.0); Protein,Urine Negative (Negative); Specific Gravity,Urine 1.009 (1.001-1.035); Urobilinogen,Urine <2.0 mg/dL (<2.0)
[2021-09-19] MEDS: DILTIAZEM CD 300 MG CAP.ER.24H PO SCH (22:04)
[2021-09-20 03:42] LABS: Basophils # (A) 0.1 k/uL (0-0.2); Basophils % (A) 1 %; Eosinophils # (A) 0.1 k/uL (0-0.7); Eosinophils % (A) 2 %; HCT 40.5 % (34.0-46.0); HGB 13.5 gm/dL (11.4-16.0); Lymphocytes # (A) 1.5 k/uL (1.0-4.8); Lymphocytes % (A) 30 %; MCH 29.7 pg (25.0-35.0); MCHC 33.3 g/dL (31.0-37.0); MCV 89.2 fL (80.0-100.0); Mean Platelet Volume 7.2; Monocytes # (A) 0.4 k/uL (0-1.0); Monocytes % (A) 7 %; Neutrophils # (A) 2.9 k/uL (1.3-7.7); Neutrophils % (A) 58 %; Platelet Count 216 k/uL (150-450); RBC 4.54 m/uL (3.80-5.40); RDW 13.1 % (11.5-15.5)
[2021-09-20 03:53] LABS: ALT 16 U/L (4-34); AST 25 U/L (14-36); African American GFR (CKD) >90 (>60 ml/min/1.73 sqM); Albumin 3.5 g/dL (3.5-5.0); Alkaline Phosphatase 103 U/L (38-126); Anion Gap 6 mmol/L; Blood Urea Nitrogen 10 mg/dL (7-17); Calcium 9.4 mg/dL (8.4-10.2); Carbon Dioxide 26 mmol/L (22-30); Chloride 100 mmol/L (98-107); Glucose 106 mg/dL (74-99); Non-African American GFR(CKD) 90 (>60 ml/min/1.73 sqM); Potassium 3.9 mmol/L (3.5-5.1); Sodium 132 mmol/L (137-145); Total Bilirubin 0.6 mg/dL (0.2-1.3); Total Protein 5.7 g/dL (6.3-8.2)
[2021-09-20] MEDS ORDERED: hydrALAZINE HCL 25 MG TAB PO SCH (09:00)
[2021-09-20] MEDS ORDERED: hydroCHLOROthiazide 12.5 MG CAP PO SCH (09:00)
[2021-09-20] MEDS: lisinopriL 20 MG TAB PO SCH ×2 (09:37→21:34)
[2021-09-20] MEDS: ISOSORBIDE MONONITRATE ER 60 MG TAB.ER.24H PO SCH (09:37)
[2021-09-20] MEDS: ASPIRIN 81 MG PO SCH (09:37)
[2021-09-20] MEDS: FAMOTIDINE 20 MG TAB PO SCH (09:37)
[2021-09-20] MEDS: PANTOPRAZOLE 40 MG TABLET PO SCH (09:37)
[2021-09-20] MEDS ORDERED: SIMETHICONE 80 MG CHEWABLE PO PRN (09:56)
[2021-09-20] MEDS ORDERED: NITROGLYCERIN SL TABS 0.4 MG TAB SUBLINGUAL PRN (09:56)
--- NOTE | 2021-09-20 12:54 | US ---
EXAMINATION TYPE: US carotid duplex BILAT DATE OF EXAM: 09/20/2021 COMPARISON: NONE CLINICAL HISTORY: syncopal weakness . EXAM MEASUREMENTS: RIGHT: Peak Systolic Velocity (PSV) cm/sec ----- Right CCA: 81.9 ----- Right ICA: 91.6 ----- Right ECA: 125.0 ICA/CCA ratio: 1.12 RIGHT: End Diastole cm/sec ----- Right CCA: 7.8 ----- Right ICA: 9.7 ----- Right ECA: 0.0 LEFT: Peak Systolic Velocity (PSV) cm/sec ----- Left CCA: 79.9 ----- Left ICA: 82.7 ----- Left ECA: 105.0 ICA/CCA ratio: 1.04 LEFT: End Diastole cm/sec ----- Left CCA: 0.0 ----- Left ICA: 22.7 ----- Left ECA: 0.0 VERTEBRALS (direction of flow): Right Vertebral: not detected Left Vertebral: Antegrade Rhythm: Normal Grayscale, color Doppler, spectral Doppler imaging performed of the carotid arteries. Waveform analys is does not show significant stenosis of the internal carotid arteries. No significant stenosis seen. Extensive shadowing plaque noted left bulb. Unable to detect right vertebral flow. IMPRESSION: No hemodynamic significant stenosis of the proximal internal carotid arteries by Doppler criteria, an indirect measurement of carotid stenosis Criteria for Assigning % of Stenosis / Diameter reduction (Estimation based on the indirect measurements of the internal carotid artery velocities (ICA PSV). 1. Normal (no stenosis)=ICA PSV < 125 cm/s: ratio < 2.0: ICA EDV<40 cm/s. 2. Less than 50% stenosis=ICA PSV < 125 cm/s: ratio < 2.0: ICA EDV<40 cm/s. 3. 50 to 69% stenosis=ICA PSV of 125 to 230 cm/s: ration 2.0 ? 4.0: ICA EDV 40-100 cm/s. 4. Greater than 70% stenosis to near occlusion= ICA PSV > 230 cm/s: ratio > 4.0: ICA EDV > 100 cm/s. 5. Near occlusion= ICA PSV velocities may be low or undetectable: variable ratio and ICA EDV. 6. Total occlusion=unable to detect flow.
--- NOTE | 2021-09-20 14:03 | P.HPIM ---
History of Present Illness Patient is a pleasant 80-year-old female who lives at an independent care home came in with multiple complaints which are nonspecific including generalized weakness unable to move at all. Patient was also lightheaded with some headache on the left side of the head. Patient had a CT angios the chest which did not show any significant abnormality and CT of the head which did not show any acute stroke. Patient had an EKG which showed some Q waves in the inferior leads without any other acute ST-T wave changes side, sinus rhythm. TSH is within normal limits. Patient denies any trauma fall. Patient denied any vertigo patient has been taking all her medications. Patient blood pressure is in fact a bit elevated when she checked after her symptoms. Patient is not diabetic. Patient was fairly healthy unsure why she had all the symptoms all of a sudden. Patient doesn't have any fever chills does have leukocytosis. REVIEW OF SYSTEMS: CONSTITUTIONAL: No fever. HEENT: No recent visual problems or hearing problems. Denied any sore throat. CARDIOVASCULAR: No chest pain, orthopnea, PND, no palpitations, no syncope. PULMONARY: No shortness of breath, no cough, no hemoptysis. GASTROINTESTINAL: No diarrhea, no nausea, no vomiting, no abdominal pain. NEUROLOGICAL: No headaches, no weakness, no numbness. HEMATOLOGICAL: Denies any bleeding or petechiae. GENITOURINARY: Denies any burning micturition, frequency, or urgency. MUSCULOSKELETAL/RHEUMATOLOGICAL: Denies any joint pain, swelling, or any muscle pain. ENDOCRINE: Denies any polyuria or polydipsia. The rest of the 14-point review of systems is negative. PHYSICAL EXAMINATION: GENERAL: The patient is alert and oriented x3, not in any acute distress. Well developed, well nourished. HEENT: Pupils are round and equally reacting to light. EOMI. No scleral icterus. No conjunctival pallor. Normocephalic, atraumatic. No pharyngeal erythema. No thyromegaly. CARDIOVASCULAR: S1 and S2 present. No murmurs, rubs, or gallops. PULMONARY: Chest is clear to auscultation, no wheezing or crackles. ABDOMEN: Soft, nontender, nondistended, normoactive bowel sounds. No palpable organomegaly. MUSCULOSKELETAL: No joint swelling or deformity. EXTREMITIES: No cyanosis, clubbing, or pedal edema. NEUROLOGICAL: Gross neurological examination did not reveal any focal deficits. SKIN: No rashes. Assessment and plan -Generalized weakness and tiredness along with lightheadedness: Etiology is not clear can be heart rhythm abnormality patient will be monitored for 1 more day on telemetry we'll [place] an echocardiogram and a carotid Doppler. Carotid Doppler did not show any significant abnormality TSH is essentially within normal limits. Patient is mildly hyponatremic secondary to hydrochlorothiazide may be contributed to some of her symptoms. Patient blood pressure is actually high and consistently high patient will be resumed on her home activities medications please hydralazine but discontinue hydrochlorothiazide. -Hyponatremia secondary to hydrochlorothiazide which will be held -Generalized deconditioning: Physical therapy and occupational therapy evaluation -Ruled out pulmonary embolism DVT prophylaxis: Lovenox Past Medical History Past Medical History: Chest Pain / Angina, Hypertension History of Any Multi-Drug Resistant Organisms: None Reported Past Surgical History: Back Surgery, Heart Catheterization, Hernia Repair, Orthopedic Surgery Additional Past Surgical History / Comment(s): Neck fusion. colon proloapse reconstructions 04/2021. hiatal hernia repair x2 12/2020 Past Anesthesia/Blood Transfusion Reactions: No Reported Reaction Past Psychological History: No Psychological Hx Reported Smoking Status: Former smoker Past Alcohol Use History: None Reported Past Drug Use History: None Reported Medications and Allergies Home Medications Medication Instructions Recorded Confirmed Type Diltiazem HCl [Cardizem LA] 300 mg PO HS 03/20/21 09/19/21 History Fosinopril Sodium [Monopril] 20 mg PO BID 03/20/21 09/19/21 History Hydrochlorothiazide 12.5 mg PO DAILY 03/20/21 09/19/21 History [hydroCHLOROthiazide] Isosorbide Mononitrate ER [Imdur] 60 mg PO DAILY 03/20/21 09/19/21 History Nitroglycerin Sl Tabs [Nitrostat] 0.4 mg SL Q5M PRN 03/20/21 09/19/21 History Pantoprazole Sodium [Protonix] 20 mg PO AC-BRKFST 03/20/21 09/19/21 History hydrALAZINE HCL [Apresoline] 25 mg PO BID 03/20/21 09/19/21 History Aspirin EC [Ecotrin Low Dose] 81 mg PO DAILY 06/16/21 09/19/21 History Ondansetron [Zofran] 4 mg PO Q12HR PRN 06/16/21 09/19/21 History Polyethylene Glycol 3350 [Miralax] 17 gm PO BID 06/24/21 09/19/21 History Famotidine/Ca Carb/Mag Hydrox 1 tab PO DAILY 09/17/21 09/19/21 History [Pepcid Complete Tablet Chew] Melatonin 5 mg PO HS 09/17/21 09/19/21 History Multivit-Min/FA/Lycopen/Lutein 1 tab PO BID 09/17/21 09/19/21 History [Centrum Silver Tablet] Simethicone [Gas-X] 125 mg PO TID PRN 09/17/21 09/19/21 History Vit C/E/Zn/Coppr/Lutein/Zeaxan 1 cap PO BID 09/17/21 09/19/21 History [Preservision Areds 2 Softgel] Allergies Allergy/AdvReac Type Severity Reaction Status Date / Time nitrofurantoin Allergy Nausea, Verified 09/19/21 18:18 [From Macrobid] itching Penicillins Allergy Anaphylaxis Verified 09/19/21 18:18 sulfamethoxazole Allergy Nausea, Verified 09/19/21 18:18 [From Bactrim] Itching trimethoprim [From Bactrim] Allergy Nausea, Verified 09/19/21 18:18 Itching aspirin AdvReac Abdominal Verified 09/19/21 18:18 Pain codeine AdvReac Confusion Verified 09/19/21 18:18 NSAIDS (Non-Steroidal AdvReac Abdominal Verified 09/19/21 18:18 Anti-Inflamma Pain Physical Exam Vitals: Vital Signs Temp Pulse Pulse Resp BP BP Pulse Ox 09/20/21 08:00 18 09/20/21 07:00 97.6 F 79 18 181/76 97 09/20/21 00:28 97.7 F 72 16 175/80 97 09/19/21 22:26 98.4 F 65 16 165/76 96 09/19/21 21:42 98.7 F 67 18 150/72 98 09/19/21 20:00 92 18 161/91 95 09/19/21 19:30 94 18 162/88 95 09/19/21 18:12 98.2 F 92 18 172/102 97 Intake and Output 09/19/21 09/20/21 09/20/21 22:59 06:59 14:59 Intake Total 118 Balance 118 Intake: Oral 118 Other: # Voids 3 # Bowel Movements 1 Weight 72.575 kg Results CBC & Chem 7: 09/20/21 03:05 09/20/21 03:05 Labs: Abnormal Lab Results - Last 24 Hours (Table) 09/19/21 09/19/21 09/20/21 Range/Units 18:56 18:56 03:05 D-Dimer 1.50 H (<0.60) mg/L FEU Sodium 130 L 132 L (137-145) mmol/L Glucose 102 H 106 H (74-99) mg/dL Total Protein 6.1 L 5.7 L (6.3-8.2) g/dL Thrombosis Risk Factor Assmnt - Choose All That Apply Any of the Below Risk Factors Present?: Yes Each Factor Represents 1 point: Obesity (BMI >25) Other Risk Factors: Yes Each Risk Factor Represents 3 Points: Age 75 years or older Other congenital or acquired thrombophilia - If yes, enter type in comment: No Thrombosis Risk Factor Assessment Total Risk Factor Score: 4 Thrombosis Risk Factor Assessment Level: Moderate Risk
[2021-09-20] MEDS: SODIUM CHLORIDE 0.9% 1,000 ML IV SCH (18:04)
[2021-09-20] MEDS: hydrALAZINE HCL 50 MG TAB PO SCH ×2 (18:04→21:35)
[2021-09-20] MEDS: VIT A,C & E-LUTEIN-MINERALS 1 EACH TAB PO SCH (21:34)
[2021-09-20] MEDS: polyethylene glycoL 3350 17 GM POWD.PACK PO SCH (21:34)
[2021-09-20] MEDS: DILTIAZEM CD 300 MG CAP.ER.24H PO SCH (21:34)
[2021-09-21] MEDS ORDERED: ACETAMINOPHEN TAB 325 MG TAB PO PRN (01:27)
[2021-09-21] MEDS: SODIUM CHLORIDE 0.9% 1,000 ML IV SCH ×2 (02:53→16:11)
[2021-09-21] MEDS: lisinopriL 20 MG TAB PO SCH (10:06)
[2021-09-21] MEDS: PANTOPRAZOLE 40 MG TABLET PO SCH (10:06)
[2021-09-21] MEDS: ISOSORBIDE MONONITRATE ER 60 MG TAB.ER.24H PO SCH (10:06)
[2021-09-21] MEDS: hydrALAZINE HCL 50 MG TAB PO SCH ×2 (10:06→16:11)
[2021-09-21] MEDS: ASPIRIN 81 MG PO SCH (10:06)
[2021-09-21] MEDS: FAMOTIDINE 20 MG TAB PO SCH (10:06)
[2021-09-21] MEDS: VIT A,C & E-LUTEIN-MINERALS 1 EACH TAB PO SCH (10:07)
[2021-09-21] MEDS: polyethylene glycoL 3350 17 GM POWD.PACK PO SCH (10:20)
--- NOTE | 2021-09-21 11:00 | ECHOF ---
Referral Reason:syncopal weakness MEASUREMENTS -------- HEIGHT: 162.6 cm WEIGHT: 72.6 kg BP: IVSd: 0.9 cm (0.6 - 1.1) LVIDd: 4.5 cm (3.9 - 5.3) LVPWd: 1.3 cm (0.6 - 1.1) EDV(Teich): 95 ml IVSs: 1.6 cm LVIDs: 3.0 cm LVPWs: 1.4 cm %IVS Thck: 69 % ESV(Teich): 35 ml EF(Teich): 63 % %FS: 34 % SV(Teich): 59 ml LA Diam: 4.1 cm (2.7 - 3.8) RVIDd: 3.0 cm (< 3.3) LALs A4C: 5.9 cm LAAs A4C: 21.5 cm LAESV A-L A4C: 66 ml LAESV MOD A4C: 62 ml LALs A2C: 5.4 cm LAAs A2C: 17.5 cm LAESV A-L A2C: 48 ml LAESV MOD A2C: 47 ml LAESV(A-L): 59 ml LAESV Index (A-L): 33.31 ml/m Ao Diam: 3.6 cm (2.0 - 3.7) LA Diam: 4.5 cm (2.7 - 3.8) AV Cusp: 1.8 cm (1.5 - 2.6) EPSS: 0.3 cm MV E Grady: 0.79 m/s MV DecT: 298 ms MV Dec Wal[place]: 2.6 m/s MV A Grady: 1.18 m/s MV E/A Ratio: 0.67 MV PHT: 86 ms TR Vmax: 2.27 m/s TR maxP.68 mmHg RAP: 5.00 mmHg RVSP: 25.68 mmHg MV EF SLOPE: 42.44 mm/s (70 - 150) MV EXCURSION: 15.97 mm (> 18.000) FINDINGS -------- Sinus rhythm. This was a technically good study. LV size, wall thickness and systolic function are normal, with an EF greater than 55%. The left susanna tricular size is normal. The right ventricle is normal in size. LA is midly dilated 29-33ml/m2. The right atrial size is normal. There is mild aortic regurgitation. Mild mitral regurgitation is present. Mild tricuspid regurgitation present. Right ventricular systolic pressure is normal at < 35 mmHg. There is no pulmonic regurgitation present. There is no pericardial effusion. CONCLUSIONS -------- 1. LV size, wall thickness and systolic function are normal, with an EF greater than 55%. 2. The left ventricular size is normal. 3. The right ventricle is normal in size. 4. LA is midly dilated 29-33ml/m2. 5. The right atrial size is normal. 6. There is mild aortic regurgitation. 7. Mild mitral regurgitation is present. 8. Mild tricuspid regurgitation present. 9. There is no pericardial effusion. PACK MULE WORKER: Berna Mosqueda RDCS
[2021-09-21 11:17] LABS: African American GFR (CKD) 107.4 (60.0-200.0); Anion Gap 10.9 mmol/L (10.00-18.00); BUN/Creat Ratio 19.4 Ratio (12.00-20.00); Blood Urea Nitrogen 9.7 mg/dL (9.0-27.0); Calcium 8.9 mg/dL (8.7-10.3); Carbon Dioxide 23.1 mmol/L (20.0-27.5); Non-African American GFR(CKD) 92.7 (60.0-200.0); Potassium 3.6 mmol/L (3.5-5.5)
[2021-09-21 14:54] VITALS: BP 154/56; PULSE 93; RESP 17; TEMP 97.8
--- NOTE | 2021-09-21 22:02 | P.DS ---
Providers Date of admission: 09/19/21 21:04 Attending physician: Taty Morris MD Primary care physician: Kirstie Alonso [facility] Hospital Course: Final Diagnosis -Generalized weakness and tiredness along with lightheadedness: Unclear etiology, workup essential unremarkable with normal TSH, Echo WNL for age, Carotid negative, Brain CT negative for acute findings. Orthostatics negative, PT cleared patient for discharge home. 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 Event monitor placed prior to discharge for 1 week and follow up with cardiology outpatient. Repeat sodium level in 2 days, hold hydrochlorothiazide until follow up with PCP. Hospital Course Patient is a pleasant 80-year-old female who lives at an independent senior care came in with multiple complaints which are nonspecific including generalized weakness unable to move at all. Patient was also lightheaded with some headache on the left side of the head. Patient had a CT angio of the chest which did not show any significant abnormality, There is an ascending aortic measuring 3.[address] of the head which did not show any acute stroke. Patient had an EKG which showed some Q waves in the inferior leads without any other acute ST-T wave changes side, sinus rhythm. Echocardiogram shows an EF of greater than 55% with no pericardial effusion. Carotid Doppler is negative for significant stenosis of the proximal internal carotid arteries. TSH is within normal limits. Patient denies any trauma fall. Patient denied any vertigo patient has been taking all her medications. Patient blood pressure is in fact a bit elevated when she checked after her symptoms. Patient is not diabetic. Orthostatics were completed which were negative, and patient denies any dizziness, lightheadedness, and headache has resolved. Labs on admission show an unremarkable white count, D-Dimer 1.50, sodium 130, glucose 102, troponin negative x3. Urinalysis negative, COVID PCR negative. 09/21/2021 Patient evaluated today sitting up in chair. She did state that after receiving her dose of MiraLAX yesterday evening she did have some dizziness and mild confusion that resolved spontaneously. Today she is alert and oriented 3 and denies any dizziness lightheadedness, headache. She also denies any chest pain, shortness of breath. She hasn't had any palpitations. She is showing normal sinus rhythm on telemetry. Labs today show sodium of 132, potassium 3.6, BUN 0.7, creatinine 0.5, glucose 95. Troponins have been negative 3, TSH normal 2.460. Urinalysis negative, PCR negative. Vital signs reviewed today, temperature 98.1, heart rate 91, blood pressure 148/70 inches 96% room air. Lungs are clear to auscultation, S1 and S2 auscultated, abdomen is soft and nontender, normoactive sounds, focal neurological exam is negative, and no peripheral edema. PT evaluation completed and patient is stable for discharge back to assisted living. She denies any needs for DC and has family support. Please see medication reconciliation for a list of current medications. Thank you for allowing us to participate in the care of this patient. Patient Condition at Discharge: Stable Plan - Discharge Summary Discharge Rx Participant: Yes New Discharge Prescriptions: New hydrALAZINE HCL [Apresoline] 50 mg PO TID #90 tab Acetaminophen Tab [Tylenol] 650 mg PO Q6HR PRN tab PRN Reason: Fever And/ Or Pain Continue Isosorbide Mononitrate ER [Imdur] 60 mg PO DAILY Fosinopril Sodium [Monopril] 20 mg PO BID Diltiazem HCl [Cardizem LA] 300 mg PO HS Pantoprazole Sodium [Protonix] 20 mg PO AC-BRKFST Multivit-Min/FA/Lycopen/Lutein [Centrum Silver Tablet] 1 tab PO BID Vit C/E/Zn/Coppr/Lutein/Zeaxan [Preservision Areds 2 Softgel] 1 cap PO BID Famotidine/Ca Carb/Mag Hydrox [Pepcid Complete Tablet Chew] 1 tab PO DAILY Nitroglycerin Sl Tabs [Nitrostat] 0.4 mg SL Q5M PRN PRN Reason: Chest Pain Ondansetron [Zofran] 4 mg PO Q12HR PRN PRN Reason: Nausea Aspirin EC [Ecotrin Low Dose] 81 mg PO DAILY Polyethylene Glycol 3350 [Miralax] 17 gm PO BID Simethicone [Gas-X] 125 mg PO TID PRN PRN Reason: Gi Upset Discontinued hydrALAZINE HCL [Apresoline] 25 mg PO BID Melatonin 5 mg PO HS Hydrochlorothiazide [hydroCHLOROthiazide] 12.5 mg PO DAILY Discharge Medication List Diltiazem HCl [Cardizem LA] 300 mg PO HS 03/20/21 [History] Fosinopril Sodium [Monopril] 20 mg PO BID 03/20/21 [History] Isosorbide Mononitrate ER [Imdur] 60 mg PO DAILY 03/20/21 [History] Nitroglycerin Sl Tabs [Nitrostat] 0.4 mg SL Q5M PRN 03/20/21 [History] Pantoprazole Sodium [Protonix] 20 mg PO AC-BRKFST 03/20/21 [History] Aspirin EC [Ecotrin Low Dose] 81 mg PO DAILY 06/16/21 [History] Ondansetron [Zofran] 4 mg PO Q12HR PRN 06/16/21 [History] Polyethylene Glycol 3350 [Miralax] 17 gm PO BID 06/24/21 [History] Famotidine/Ca Carb/Mag Hydrox [Pepcid Complete Tablet Chew] 1 tab PO DAILY 09/17/21 [History] Multivit-Min/FA/Lycopen/Lutein [Centrum Silver Tablet] 1 tab PO BID 09/17/21 [History] Simethicone [Gas-X] 125 mg PO TID PRN 09/17/21 [History] Vit C/E/Zn/Coppr/Lutein/Zeaxan [Preservision Areds 2 Softgel] 1 cap PO BID 09/17/21 [History] Acetaminophen Tab [Tylenol] 650 mg PO Q6HR PRN tab 09/21/21 [Rx] hydrALAZINE HCL [Apresoline] 50 mg PO TID #90 tab 09/21/21 [Rx] Follow up Appointment(s)/Referral(s): Kirstie Alonso MD [Primary Care Provider] - 1-2 days Krystyna Canada MD [STAFF PHYSICIAN] - 1 Week (needs GI F/U from endoscopy she had in July) Félix Canada MD [STAFF PHYSICIAN] - 1 Week (Event Monitor F/U) Activity/Diet/Wound Care/Special Instructions: Discharge to Assisted Living Facility with family support Event monitor placed 09/21/21 - follow up activity as tolerated heart healthy diet as tolerated Discharge Disposition: HOME SELF-CARE
== END 2021-09-21 17:34 | disposition home or self-care (01) ==
LOC: EC 18:11 → 6NMEDSUR 21:04
PROVIDERS: ADMIT Internal Medicine; ATTEND Internal Medicine
DX: R53.1 Weakness (principal); E87.1 Hypo-osmolality and hyponatremia; T50.2X5A Adverse effect of carbonic-anhydrase inhibitors, benzothiadiazides and other diuretics, initial encounter; K21.9 Gastro-esophageal reflux disease without esophagitis; I11.9 Hypertensive heart disease without heart failure; K22.70 Barrett's esophagus without dysplasia; I08.3 Combined rheumatic disorders of mitral, aortic and tricuspid valves; I70.0 Atherosclerosis of aorta; R51.9 Headache, unspecified; R07.9 Chest pain, unspecified; R42 Dizziness and giddiness; D72.829 Elevated white blood cell count, unspecified; R53.83 Other fatigue; R41.0 Disorientation, unspecified; E66.9 Obesity, unspecified; Z68.27 Body mass index [BMI] 27.0-27.9, adult; Z20.822 Contact with and (suspected) exposure to COVID-19; Z79.82 Long term (current) use of aspirin; Z79.899 Other long term (current) drug therapy; Z98.1 Arthrodesis status; Z88.0 Allergy status to penicillin; Z88.1 Allergy status to other antibiotic agents; Z88.2 Allergy status to sulfonamides; Z88.5 Allergy status to narcotic agent; Z88.6 Allergy status to analgesic agent; Z87.19 Personal history of other diseases of the digestive system; Z87.891 Personal history of nicotine dependence; Z98.890 Other specified postprocedural states
CPT/HCPCS: 96360; 96361; 99285; 36415; 93005; 93306; 93270; 97162; 97165; 85379; 80053 ×2; 80048; 83735; 84443; 84484 ×2; 85025 ×2; 85610; 85730; 81003; 87635; 71045; 93880; 70450; 71275; G0378 ×3; Q9967

== ENCOUNTER 2021-10-20 16:33 | Inpatient (IN) | payer MEDICARE ==
--- NOTE | 2021-10-20 16:36 | ED ---
General Adult HPI - General Stated complaint: nausea Time Seen by Provider: 10/20/21 16:36 Source: patient, RN notes reviewed, old records reviewed - History of Present Illness Initial comments: 80-year-old female who presents for evaluation of nausea, vomiting and mild epigastric discomfort. She has been dealing with nausea for some time. She's had multiple episodes of vomiting. She states that this episode was more severe and associated with dizziness. This has been occurring for at least one year. She had a hiatal hernia repair about one year ago. She states this was performed at an outside hospital. She denies chest pain. She states she is currently on antibiotics for pneumonia. She denies fever. Denies focal numbness or weakness. She has some minimal abdominal discomfort as well as nausea. - Related Data Home Medications Medication Instructions Recorded Confirmed Diltiazem HCl [Cardizem LA] 300 mg PO DAILY 03/20/21 10/20/21 Fosinopril Sodium [Monopril] 20 mg PO BID 03/20/21 10/20/21 Isosorbide Mononitrate ER [Imdur] 60 mg PO DAILY 03/20/21 10/20/21 Nitroglycerin Sl Tabs [Nitrostat] 0.4 mg SL Q5M PRN 03/20/21 10/20/21 Aspirin EC [Ecotrin Low Dose] 81 mg PO DAILY 06/16/21 10/20/21 Polyethylene Glycol 3350 [Miralax] 17 gm PO BID PRN 06/24/21 10/20/21 Famotidine/Ca Carb/Mag Hydrox 1 tab PO DAILY 09/17/21 10/20/21 [Pepcid Complete Tablet Chew] Multivit-Min/FA/Lycopen/Lutein 1 tab PO BID 09/17/21 10/20/21 [Centrum Silver Tablet] Simethicone [Gas-X] 125 mg PO TID PRN 09/17/21 10/20/21 Vit C/E/Zn/Coppr/Lutein/Zeaxan 1 cap PO BID 09/17/21 10/20/21 [Preservision Areds 2 Softgel] Baclofen [Lioresal] 10 mg PO BID PRN 10/20/21 10/20/21 Benzonatate [Tessalon Perles] 100 mg PO TID PRN 10/20/21 10/20/21 Doxycycline Hyclate 100 mg PO BID 10/20/21 10/20/21 Ondansetron Odt [Zofran Odt] 4 mg PO BID PRN 10/20/21 10/20/21 Pantoprazole [Protonix] 40 mg PO BID 10/20/21 10/20/21 hydrALAZINE HCL [Apresoline] 25 mg PO TID 10/20/21 10/20/21 Previous Rx's Medication Instructions Recorded Acetaminophen Tab [Tylenol] 650 mg PO Q6HR PRN tab 09/21/21 Allergies Allergy/AdvReac Type Severity Reaction Status Date / Time nitrofurantoin Allergy Nausea, Verified 10/20/21 17:09 [From Macrobid] itching Penicillins Allergy Anaphylaxis Verified 10/20/21 17:09 sulfamethoxazole Allergy Nausea, Verified 10/20/21 17:09 [From Bactrim] Itching trimethoprim [From Bactrim] Allergy Nausea, Verified 10/20/21 17:09 Itching aspirin AdvReac Abdominal Verified 10/20/21 17:09 Pain codeine AdvReac Confusion Verified 10/20/21 17:09 NSAIDS (Non-Steroidal AdvReac Abdominal Verified 10/20/21 17:09 Anti-Inflamma Pain Review of Systems ROS Statement: Those systems with pertinent positive or pertinent negative responses have been documented in the HPI. ROS Other: All systems not noted in ROS Statement are negative. Past Medical History Past Medical History: Chest Pain / Angina, Hypertension History of Any Multi-Drug Resistant Organisms: None Reported Past Surgical History: Back Surgery, Heart Catheterization, Hernia Repair, Orthopedic Surgery Additional Past Surgical History / Comment(s): Neck fusion. colon proloapse reconstructions 04/2021. hiatal hernia repair x2 12/2020 Past Anesthesia/Blood Transfusion Reactions: No Reported Reaction Past Psychological History: No Psychological Hx Reported Smoking Status: Former smoker Past Alcohol Use History: None Reported Past Drug Use History: None Reported General Exam General appearance: alert, in no apparent distress Head exam: Present: atraumatic, normocephalic Eye exam: Present: normal appearance, PERRL ENT exam: Present: normal exam Neck exam: Present: normal inspection. Absent: tenderness, meningismus Respiratory exam: Present: normal lung sounds bilaterally. Absent: respiratory distress, wheezes Cardiovascular Exam: Present: regular rate, normal rhythm GI/Abdominal exam: Present: soft. Absent: distended, tenderness, guarding Extremities exam: Present: normal inspection, normal capillary refill. Absent: pedal edema Neurological exam: Present: alert, oriented X3, CN II-XII intact. Absent: motor sensory deficit Psychiatric exam: Present: normal affect, normal mood Skin exam: Present: warm, dry, intact. Absent: cyanosis, diaphoretic Course Vital Signs 10/20/21 16:42 Temperature 98.2 F Pulse Rate 79 Respiratory 16 Rate Blood Pressure 177/94 O2 Sat by Pulse 96 Oximetry EKG Findings - EKG Comments: EKG Findings:: Sinus rhythm Rate is 73, [place] interval 141, QRS duration 79, QTC [address] segment elevation. Medical Decision Making - Medical Decision Making 80-year-old female who has been dealing with nausea vomiting for approximately one year presents with an episode of severe nausea, dizziness, and mild abdominal discomfort. She states she's had multiple episodes in the past but this was more severe. Denies fever. Workup is initiated, normal CBC, normal CMP, negative urinalysis. I did perform cardiac testing as well given the location of her symptoms, EKG is nonischemic and troponin is negative. She has a mild hyponatremia 128. Discussed with Diann farley for [facility] hospitalists. Patient will be admitted for symptom control head and hydration. - Lab Data Result diagrams: 10/20/21 16:49 10/20/21 16:49 Lab Results 10/20/21 10/20/21 10/20/21 Range/Units 16:49 16:49 16:49 WBC 8.3 (3.8-10.6) k/uL RBC 4.55 (3.80-5.40) m/uL Hgb 13.8 (11.4-16.0) gm/dL Hct 40.5 (34.0-46.0) % MCV 89.0 (80.0-100.0) fL MCH 30.3 (25.0-35.0) pg MCHC 34.0 (31.0-37.0) g/dL RDW 13.6 (11.5-15.5) % Plt Count 275 (150-450) k/uL MPV 7.5 Neutrophils % 64 % Lymphocytes % 27 % Monocytes % 7 % Eosinophils % 1 % Basophils % 0 % Neutrophils # 5.4 (1.3-7.7) k/uL Lymphocytes # 2.2 (1.0-4.8) k/uL Monocytes # 0.6 (0-1.0) k/uL Eosinophils # 0.1 (0-0.7) k/uL Basophils # 0.0 (0-0.2) k/uL PT 10.3 (9.0-12.0) sec INR 0.9 (<1.2) APTT 22.4 (22.0-30.0) sec Sodium 128 L (137-145) mmol/L Potassium 4.4 (3.5-5.1) mmol/L Chloride 98 (98-107) mmol/L Carbon Dioxide 23 (22-30) mmol/L Anion Gap 7 mmol/L BUN 22 H (7-17) mg/dL Creatinine 0.64 (0.52-1.04) mg/dL Est GFR (CKD-EPI)AfAm >90 (>60 ml/min/1.73 sqM) Est GFR (CKD-EPI)NonAf 86 (>60 ml/min/1.73 sqM) Glucose 95 (74-99) mg/dL Plasma Lactic Acid Rogelio (0.7-2.0) mmol/L Calcium 8.4 (8.4-10.2) mg/dL Magnesium 2.1 (1.6-2.3) mg/dL Total Bilirubin 0.4 (0.2-1.3) mg/dL AST 19 (14-36) U/L ALT 17 (4-34) U/L Alkaline Phosphatase 138 H (38-126) U/L Troponin I (0.000-0.034) ng/mL Total Protein 5.6 L (6.3-8.2) g/dL Albumin 3.3 L (3.5-5.0) g/dL Urine Color Urine Appearance (Clear) Urine pH (5.0-8.0) Ur Specific [place] (1.001-1.035) Urine Protein (Negative) Urine Glucose (UA) (Negative) Urine Ketones (Negative) Urine Blood (Negative) Urine Nitrite (Negative) Urine Bilirubin (Negative) Urine Urobilinogen (<2.0) mg/dL Ur Leukocyte Esterase (Negative) Coronavirus (PCR) (Not Detectd) 10/20/21 10/20/21 10/20/21 Range/Units 16:49 16:49 16:49 WBC (3.8-10.6) k/uL RBC (3.80-5.40) m/uL Hgb (11.4-16.0) gm/dL Hct (34.0-46.0) % MCV (80.0-100.0) fL MCH (25.0-35.0) pg MCHC (31.0-37.0) g/dL RDW (11.5-15.5) % Plt Count (150-450) k/uL MPV Neutrophils % % Lymphocytes % % Monocytes % % Eosinophils % % Basophils % % Neutrophils # (1.3-7.7) k/uL Lymphocytes # (1.0-4.8) k/uL Monocytes # (0-1.0) k/uL Eosinophils # (0-0.7) k/uL Basophils # (0-0.2) k/uL PT (9.0-12.0) sec INR (<1.2) APTT (22.0-30.0) sec Sodium (137-145) mmol/L Potassium (3.5-5.1) mmol/L Chloride (98-107) mmol/L Carbon Dioxide (22-30) mmol/L Anion Gap mmol/L BUN (7-17) mg/dL Creatinine (0.52-1.04) mg/dL Est GFR (CKD-EPI)AfAm (>60 ml/min/1.73 sqM) Est GFR (CKD-EPI)NonAf (>60 ml/min/1.73 sqM) Glucose (74-99) mg/dL Plasma Lactic Acid Rogelio 0.7 (0.7-2.0) mmol/L Calcium (8.4-10.2) mg/dL Magnesium (1.6-2.3) mg/dL Total Bilirubin (0.2-1.3) mg/dL AST (14-36) U/L ALT (4-34) U/L Alkaline Phosphatase (38-126) U/L Troponin I <0.012 (0.000-0.034) ng/mL Total Protein (6.3-8.2) g/dL Albumin (3.5-5.0) g/dL Urine Color Urine Appearance (Clear) Urine pH (5.0-8.0) Ur Specific [place] (1.001-1.035) Urine Protein (Negative) Urine Glucose (UA) (Negative) Urine Ketones (Negative) Urine Blood (Negative) Urine Nitrite (Negative) Urine Bilirubin (Negative) Urine Urobilinogen (<2.0) mg/dL Ur Leukocyte Esterase (Negative) Coronavirus (PCR) Not Detected (Not Detectd) 10/20/21 Range/Units 18:08 WBC (3.8-10.6) k/uL RBC (3.80-5.40) m/uL Hgb (11.4-16.0) gm/dL Hct (34.0-46.0) % MCV (80.0-100.0) fL MCH (25.0-35.0) pg MCHC (31.0-37.0) g/dL RDW (11.5-15.5) % Plt Count (150-450) k/uL MPV Neutrophils % % Lymphocytes % % Monocytes % % Eosinophils % % Basophils % % Neutrophils # (1.3-7.7) k/uL Lymphocytes # (1.0-4.8) k/uL Monocytes # (0-1.0) k/uL Eosinophils # (0-0.7) k/uL Basophils # (0-0.2) k/uL PT (9.0-12.0) sec INR (<1.2) APTT (22.0-30.0) sec Sodium (137-145) mmol/L Potassium (3.5-5.1) mmol/L Chloride (98-107) mmol/L Carbon Dioxide (22-30) mmol/L Anion Gap mmol/L BUN (7-17) mg/dL Creatinine (0.52-1.04) mg/dL Est GFR (CKD-EPI)AfAm (>60 ml/min/1.73 sqM) Est GFR (CKD-EPI)NonAf (>60 ml/min/1.73 sqM) Glucose (74-99) mg/dL Plasma Lactic Acid Rogelio (0.7-2.0) mmol/L Calcium (8.4-10.2) mg/dL Magnesium (1.6-2.3) mg/dL Total Bilirubin (0.2-1.3) mg/dL AST (14-36) U/L ALT (4-34) U/L Alkaline Phosphatase (38-126) U/L Troponin I (0.000-0.034) ng/mL Total Protein (6.3-8.2) g/dL Albumin (3.5-5.0) g/dL Urine Color Light Yellow Urine Appearance Clear (Clear) Urine pH 6.0 (5.0-8.0) Ur Specific [place] 1.007 (1.001-1.035) Urine Protein Negative (Negative) Urine Glucose (UA) Negative (Negative) Urine Ketones Negative (Negative) Urine Blood Negative (Negative) Urine Nitrite Negative (Negative) Urine Bilirubin Negative (Negative) Urine Urobilinogen <2.0 (<2.0) mg/dL Ur Leukocyte Esterase Negative (Negative) Coronavirus (PCR) (Not Detectd) Disposition Clinical Impression: Dehydration, Nausea & vomiting, Generalized weakness Disposition: ADMITTED IP TO [facility] Condition: Stable Is patient prescribed a controlled substance at d/c from ED?: No Referrals: Kirstie Alonso MD [Primary Care Provider] - 1-2 days Decision to Admit Reason: Admit from EC Decision Date: 10/20/21 Decision Time: 19:22
[2021-10-20 16:57] LABS: Basophils % (A) 0 %; Eosinophils # (A) 0.1 k/uL (0-0.7); Eosinophils % (A) 1 %; HCT 40.5 % (34.0-46.0); HGB 13.8 gm/dL (11.4-16.0); Lymphocytes # (A) 2.2 k/uL (1.0-4.8); Lymphocytes % (A) 27 %; MCH 30.3 pg (25.0-35.0); Mean Platelet Volume 7.5; Monocytes # (A) 0.6 k/uL (0-1.0); Monocytes % (A) 7 %; Neutrophils # (A) 5.4 k/uL (1.3-7.7); Neutrophils % (A) 64 %; Platelet Count 275 k/uL (150-450); RBC 4.55 m/uL (3.80-5.40); RDW 13.6 % (11.5-15.5); WBC 8.3 k/uL (3.8-10.6)
[2021-10-20 17:04] LABS: ALT 17 U/L (4-34); AST 19 U/L (14-36); African American GFR (CKD) >90 (>60 ml/min/1.73 sqM); Albumin 3.3 g/dL (3.5-5.0); Alkaline Phosphatase 138 U/L (38-126); Anion Gap 7 mmol/L; Blood Urea Nitrogen 22 mg/dL (7-17); Calcium 8.4 mg/dL (8.4-10.2); Carbon Dioxide 23 mmol/L (22-30); Chloride 98 mmol/L (98-107); Glucose 95 mg/dL (74-99); Magnesium 2.1 mg/dL (1.6-2.3); Non-African American GFR(CKD) 86 (>60 ml/min/1.73 sqM); Potassium 4.4 mmol/L (3.5-5.1); Sodium 128 mmol/L (137-145); Total Bilirubin 0.4 mg/dL (0.2-1.3); Total Protein 5.6 g/dL (6.3-8.2)
[2021-10-20 17:07] LABS: INR 0.9 (<1.2); Partial Thromboplastin Time 22.4 sec (22.0-30.0); Prothrombin Time 10.3 sec (9.0-12.0)
--- NOTE | 2021-10-20 17:50 | XR ---
EXAMINATION TYPE: XR chest 2V DATE OF EXAM: 10/20/2021 5:22 PM COMPARISON:Chest radiographs from 09/19/2021 TECHNIQUE: XR chest 2V Frontal and lateral views of the chest. CLINICAL INDICATION:Female, 80 years old with history of Weakness; FINDINGS: Lungs/Pleura: There is no evidence of pleural effusion, focal consolidation, or pneumothorax. Pulmonary vascularity: Unremarkable. Heart/mediastinum: Cardiomediastinal silhouette is enlarged and stable. Atherosclerotic calcificatio ns are seen in the aorta. Musculoskeletal: No acute osseous pathology. IMPRESSION: No acute cardiopulmonary disease/process.
[2021-10-20 18:15] LABS: Appearance,Urine Clear (Clear); Bilirubin,Urine Negative (Negative); Blood,Urine Negative (Negative); Color,Urine Light Yellow; Glucose,Urine (UA) Negative (Negative); Ketones,Urine Negative (Negative); Leukocyte Esterase,Urine Negative (Negative); Nitrite,Urine Negative (Negative); Protein,Urine Negative (Negative); Specific Gravity,Urine 1.007 (1.001-1.035); Urobilinogen,Urine <2.0 mg/dL (<2.0)
--- NOTE | 2021-10-20 18:26 | CT ---
EXAMINATION TYPE: CT abdomen pelvis w con CT DLP: 1023.1 mGycm, Automated exposure control for dose reduction was used. DATE OF EXAM: 10/20/2021 6:09 PM COMPARISON: CT abdomen pelvis most recent from 06/24/2021 CLINICAL INDICATION:Female, 80 years old with history of ab pain; abdominal pain, nausea TECHNIQUE: Standard CT of the abdomen and pelvis following the administration of 100 cc of Isovue 3 00 IV contrast material. Coronal and sagittal reformats were performed. FINDINGS: LOWER CHEST: Unremarkable ABDOMEN LIVER: Unremarkable GALLBLADDER AND BILE DUCTS: The gallbladder is surgically absent. Extrahepatic biliary dilatation lik aurea physiologic in the setting of cholecystectomy changes. PANCREAS: Unremarkable. SPLEEN: Small splenules are present. ADRENAL GLANDS: Stable left adrenal gland nodular thickening measuring up to millimeters in today's e xam. KIDNEYS AND URETERS: No evidence of hydronephrosis or renal calculus. The ureters are unremarkable. PELVIS BLADDER: Unremarkable REPRODUCTIVE: Unremarkable. ABDOMEN & PELVIS STOMACH AND BOWEL: Postsurgical changes to the gastroesophageal junction. There is a large stool ericka en throughout the colon and small bowel feces seen throughout the small bowel.. No evidence of bowel obstruction. PERITONEUM: No evidence of pneumoperitoneum or free fluid. VASCULATURE: Moderate atherosclerotic calcifications are present throughout the abdominal aorta and i ts branches. MUSCULOSKELETAL: Moderate disc degeneration changes are present throughout the thoracolumbar spine. P ostsurgical changes to the spine with grade 1 anterolisthesis of L3 on L4 additionally grade 1/border line grade 2 calculus of L4 and L5. Left Femoral head bony island. LYMPH NODES: No gross evidence for lymphadenopathy. SOFT TISSUE/ABDOMINAL WALL: Unremarkable IMPRESSION: 1. Large stool burden throughout the colon with small bowel feces likely representing constipation/i leus. 2. Stable left adrenal gland nodular thickening dating back to 03/20/2021. This can be further charact erized with nonemergent CT of the abdomen adrenal mass protocol if clinically warranted. 3. Similar postsurgical changes to the spine and distal esophagus.
[2021-10-20] MEDS ORDERED: SODIUM CHLORIDE 0.9% 500 ML 500 ML IV ONE (19:05)
[2021-10-20] MEDS ORDERED: METOCLOPRAMIDE 5 MG/ML 2 ML VIAL IVP PRN (19:17)
[2021-10-20] MEDS ORDERED: NALOXONE 0.4 MG/ML 1 ML VIAL IV PRN (19:18)
[2021-10-20] MEDS ORDERED: ONDANSETRON 4 MG/2 ML VIAL IVP PRN (19:18)
[2021-10-20] MEDS ORDERED: ACETAMINOPHEN TAB 325 MG TAB PO PRN (19:18)
[2021-10-20] MEDS ORDERED: polyethylene glycoL 3350 17 GM POWD.PACK PO PRN (19:19)
[2021-10-20] MEDS ORDERED: SIMETHICONE 80 MG CHEWABLE PO PRN (19:19)
[2021-10-20] MEDS: SODIUM CHLORIDE 0.9% 1,000 ML IV SCH (20:23)
[2021-10-20] MEDS: lisinopriL 20 MG TAB PO SCH (20:24)
[2021-10-20] MEDS: hydrALAZINE HCL 25 MG TAB PO SCH (20:24)
[2021-10-20] MEDS: PANTOPRAZOLE 40 MG TABLET PO SCH (20:24)
[2021-10-21] MEDS: ISOSORBIDE MONONITRATE ER 60 MG TAB.ER.24H PO SCH (08:26)
[2021-10-21] MEDS: lisinopriL 20 MG TAB PO SCH ×2 (08:27→20:33)
[2021-10-21] MEDS: FAMOTIDINE 20 MG TAB PO SCH (08:27)
[2021-10-21] MEDS: PANTOPRAZOLE 40 MG TABLET PO SCH ×2 (08:27→16:48)
[2021-10-21] MEDS: hydrALAZINE HCL 25 MG TAB PO SCH ×3 (08:27→21:05)
[2021-10-21] MEDS: SODIUM CHLORIDE 0.9% 1,000 ML IV SCH (08:38)
[2021-10-21 10:54] LABS: African American GFR (CKD) >90 (>60 ml/min/1.73 sqM); Anion Gap 6 mmol/L; Blood Urea Nitrogen 13 mg/dL (7-17); Calcium 8.4 mg/dL (8.4-10.2); Carbon Dioxide 23 mmol/L (22-30); Chloride 100 mmol/L (98-107); Glucose 115 mg/dL (74-99); Non-African American GFR(CKD) 90 (>60 ml/min/1.73 sqM); Potassium 3.7 mmol/L (3.5-5.1); Sodium 129 mmol/L (137-145)
[2021-10-21] MEDS ORDERED: LACTULOSE 20 GM/30 ML CUP PO ONE (11:48)
--- NOTE | 2021-10-21 12:51 | P.HPIM ---
History of Present Illness Pleasant gentleman 80-year-old female came in with comments of dizziness as well as nausea and midepigastric abdominal discomfort. Abdominal discomfort and nausea improved. Patient dizziness resolved as well. Patient is bit hypon atremic patient was on hydrochlorothiazide during last hospitalization because of hyponatremia and this was discontinued. Patient was excessively evaluated for dizziness in the past admissions at that time patient had a carotid Doppler, echocardiogram patient even had a button event monitor. Patient denied any fall or syncopal episode. echo did not show any significant abnormality did not show any significant aortic stenosis. Patient had a CT of the abdomen in ER because of her above-mentioned complaints which showed significant amount of stool burden. Patient states she has been moving her bowels since last night. Patient does have history of rectal prolapse. Clinically patient's abdomen is soft does have bowel sounds but are sluggish. Patient does take MiraLAX and the senna for constipation chronically. Does drink lots of water. REVIEW OF SYSTEMS: CONSTITUTIONAL: No fever, no malaise, no fatigue. HEENT: No recent visual problems or hearing problems. Denied any sore throat. CARDIOVASCULAR: No chest pain, orthopnea, PND, no palpitations, no syncope. PULMONARY: No shortness of breath, no cough, no hemoptysis. GASTROINTESTINAL: No diarrhea, no nausea, no vomiting, no abdominal pain. NEUROLOGICAL: No headaches, no weakness, no numbness. HEMATOLOGICAL: Denies any bleeding or petechiae. GENITOURINARY: Denies any burning micturition, frequency, or urgency. MUSCULOSKELETAL/RHEUMATOLOGICAL: Denies any joint pain, swelling, or any muscle pain. ENDOCRINE: Denies any polyuria or polydipsia. The rest of the 14-point review of systems is negative. PHYSICAL EXAMINATION: GENERAL: The patient is alert and oriented x3, not in any acute distress. Well developed, well nourished. HEENT: Pupils are round and equally reacting to light. EOMI. No scleral icterus. No conjunctival pallor. Normocephalic, atraumatic. No pharyngeal erythema. No thyromegaly. CARDIOVASCULAR: S1 and S2 present. No murmurs, rubs, or gallops. PULMONARY: Chest is clear to auscultation, no wheezing or crackles. ABDOMEN: Soft, nontender, nondistended, normoactive bowel sounds. No palpable organomegaly. MUSCULOSKELETAL: No joint swelling or deformity. EXTREMITIES: No cyanosis, clubbing, or pedal edema. NEUROLOGICAL: Gross neurological examination did not reveal any focal deficits. SKIN: No rashes. 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 Patient is already receiving IV fluids. Patient was started on fluid restriction continue with IV fluids for today we'll recheck the sodium tomorrow. -Nausea vomiting: Secondary to constipation which improved at this time patient has been moving her bowels will add lactulose for constipation -Hypertension -History of gastric surgery reflux disease with hiatal hernia DVT prophylaxis: Lovenox Past Medical History Past Medical History: Chest Pain / Angina, Hypertension Additional Past Medical History / Comment(s): arthritis History of Any Multi-Drug Resistant Organisms: None Reported Past Surgical History: Back Surgery, Heart Catheterization, Hernia Repair, Orthopedic Surgery Additional Past Surgical History / Comment(s): Neck fusion. colon proloapse reconstructions 04/2021. hiatal hernia repair x2 12/2020 Past Anesthesia/Blood Transfusion Reactions: No Reported Reaction Past Psychological History: No Psychological Hx Reported Smoking Status: Former smoker Past Alcohol Use History: None Reported Past Drug Use History: None Reported Medications and Allergies Home Medications Medication Instructions Recorded Confirmed Type Diltiazem HCl [Cardizem LA] 300 mg PO DAILY 03/20/21 10/20/21 History Fosinopril Sodium [Monopril] 20 mg PO BID 03/20/21 10/20/21 History Isosorbide Mononitrate ER [Imdur] 60 mg PO DAILY 03/20/21 10/20/21 History Nitroglycerin Sl Tabs [Nitrostat] 0.4 mg SL Q5M PRN 03/20/21 10/20/21 History Aspirin EC [Ecotrin Low Dose] 81 mg PO DAILY 06/16/21 10/20/21 History Polyethylene Glycol 3350 [Miralax] 17 gm PO BID PRN 06/24/21 10/20/21 History Famotidine/Ca Carb/Mag Hydrox 1 tab PO DAILY 09/17/21 10/20/21 History [Pepcid Complete Tablet Chew] Multivit-Min/FA/Lycopen/Lutein 1 tab PO BID 09/17/21 10/20/21 History [Centrum Silver Tablet] Simethicone [Gas-X] 125 mg PO TID PRN 09/17/21 10/20/21 History Vit C/E/Zn/Coppr/Lutein/Zeaxan 1 cap PO BID 09/17/21 10/20/21 History [Preservision Areds 2 Softgel] Acetaminophen Tab [Tylenol] 650 mg PO Q6HR PRN tab 09/21/21 10/20/21 Rx Baclofen [Lioresal] 10 mg PO BID PRN 10/20/21 10/20/21 History Benzonatate [Tessalon Perles] 100 mg PO TID PRN 10/20/21 10/20/21 History Doxycycline Hyclate 100 mg PO BID 10/20/21 10/20/21 History Ondansetron Odt [Zofran Odt] 4 mg PO BID PRN 10/20/21 10/20/21 History Pantoprazole [Protonix] 40 mg PO BID 10/20/21 10/20/21 History hydrALAZINE HCL [Apresoline] 25 mg PO TID 10/20/21 10/20/21 History Allergies Allergy/AdvReac Type Severity Reaction Status Date / Time nitrofurantoin Allergy Nausea, Verified 10/20/21 17:09 [From Macrobid] itching Penicillins Allergy Anaphylaxis Verified 10/20/21 17:09 sulfamethoxazole Allergy Nausea, Verified 10/20/21 17:09 [From Bactrim] Itching trimethoprim [From Bactrim] Allergy Nausea, Verified 10/20/21 17:09 Itching aspirin AdvReac Abdominal Verified 10/20/21 17:09 Pain codeine AdvReac Confusion Verified 10/20/21 17:09 NSAIDS (Non-Steroidal AdvReac Abdominal Verified 10/20/21 17:09 Anti-Inflamma Pain Physical Exam Vitals: Vital Signs Temp Pulse Pulse Resp BP BP Pulse Ox 10/21/21 03:30 98.0 F 83 18 149/79 98 10/21/21 01:00 18 10/20/21 20:12 98.3 F 79 18 157/81 96 10/20/21 16:42 98.2 F 79 16 177/94 96 Intake and Output 10/20/21 10/21/21 10/21/21 22:59 06:59 14:59 Intake Total 900 Balance 900 Intake: Intake, IV Titration 900 Amount Sodium Chloride 0.9% 1, 900 000 ml @ 75 mls/hr IV . [id number] [facility] Rx#:[id number] Other: Voiding Method Toilet # Voids 2 Weight 70.307 kg 70.307 kg Results CBC & Chem 7: 10/20/21 16:49 10/21/21 10:00 Labs: Abnormal Lab Results - Last 24 Hours (Table) 10/20/21 10/21/21 Range/Units 16:49 10:00 Sodium 128 L 129 L (137-145) mmol/L BUN 22 H (7-17) mg/dL Glucose 115 H (74-99) mg/dL Alkaline Phosphatase 138 H (38-126) U/L Total Protein 5.6 L (6.3-8.2) g/dL Albumin 3.3 L (3.5-5.0) g/dL Thrombosis Risk Factor Assmnt - Choose All That Apply Any of the Below Risk Factors Present?: Yes Each Factor Represents 1 point: Obesity (BMI >25) Other Risk Factors: Yes Each Risk Factor Represents 3 Points: Age 75 years or older Other congenital or acquired thrombophilia - If yes, enter type in comment: No Thrombosis Risk Factor Assessment Total Risk Factor Score: 4 Thrombosis Risk Factor Assessment Level: Moderate Risk
--- NOTE | 2021-10-21 16:01 | P.CONS ---
History of Present Illness - Reason for Consult Consult date: 10/21/21 Nausea and vomiting Requesting physician: Darvin Alva - Chief Complaint Dizziness - History of Present Illness This is a 80-year-old female who HE presented to the emergency department for dizziness. She states that she felt some discomfort in her epigastric area and became very nauseated. She denies vomiting. She states at this time she has no nausea, she's not had any vomiting and dizziness has improved. The patient has a history of a rectal prolapse with repair a few months ago. Since that time she has been on stool softeners twice a day as well as MiraLAX twice a day. She had a CT of the abdomen and pelvis that showed stool burden however patient states that she's been having several bowel movements through the night however they have been small. She states this is typical for her. She does have small bowel movements daily. She states she does not have much sensation in the rectum. She does not follow-up with her previous surgeon. On admission CBC unremarkable. Patient's sodium was 128. Patient had recent EGD with biopsy on 08/27/[address] Canada for chronic nausea. Findings of Castano's esophagus, moderate size hiatal hernia and mild antral gastritis. Review of Systems REVIEW OF SYSTEMS: CARDIOPULMONARY: No chest pain or shortness of breath. Gastrointestinal: Epigastric pain, now resolved. Nausea, no vomiting. No hematemesis, coffee-ground emesis. No rectal bleeding, or melena. GENITOURINARY: No dysuria or hematuria. MUSCULOSKELETAL: Reports normal range of motion., Joint pain. SKIN: No rashes. No jaundice. ENDOCRINE: No chills, fevers. No excessive weight gain or loss. No polydipsia or polyuria. PSYCHIATRIC: Unremarkable. NEUROLOGY: No change in mental status. Dizziness, headache. ENT: Vision unremarkable. CONSTITUTIONAL: No recent weight loss. No fever, chills, night sweats. Past Medical History Past Medical History: Chest Pain / Angina, Hypertension Additional Past Medical History / Comment(s): arthritis History of Any Multi-Drug Resistant Organisms: None Reported Past Surgical History: Back Surgery, Heart Catheterization, Hernia Repair, Orthopedic Surgery Additional Past Surgical History / Comment(s): Neck fusion. colon proloapse reconstructions 04/2021. hiatal hernia repair x2 12/2020 Past Anesthesia/Blood Transfusion Reactions: No Reported Reaction Past Psychological History: No Psychological Hx Reported Smoking Status: Former smoker Past Alcohol Use History: None Reported Past Drug Use History: None Reported Medications and Allergies Home Medications Medication Instructions Recorded Confirmed Type Diltiazem HCl [Cardizem LA] 300 mg PO DAILY 03/20/21 10/20/21 History Fosinopril Sodium [Monopril] 20 mg PO BID 03/20/21 10/20/21 History Isosorbide Mononitrate ER [Imdur] 60 mg PO DAILY 03/20/21 10/20/21 History Nitroglycerin Sl Tabs [Nitrostat] 0.4 mg SL Q5M PRN 03/20/21 10/20/21 History Aspirin EC [Ecotrin Low Dose] 81 mg PO DAILY 06/16/21 10/20/21 History Polyethylene Glycol 3350 [Miralax] 17 gm PO BID PRN 06/24/21 10/20/21 History Famotidine/Ca Carb/Mag Hydrox 1 tab PO DAILY 09/17/21 10/20/21 History [Pepcid Complete Tablet Chew] Multivit-Min/FA/Lycopen/Lutein 1 tab PO BID 09/17/21 10/20/21 History [Centrum Silver Tablet] Simethicone [Gas-X] 125 mg PO TID PRN 09/17/21 10/20/21 History Vit C/E/Zn/Coppr/Lutein/Zeaxan 1 cap PO BID 09/17/21 10/20/21 History [Preservision Areds 2 Softgel] Acetaminophen Tab [Tylenol] 650 mg PO Q6HR PRN tab 09/21/21 10/20/21 Rx Baclofen [Lioresal] 10 mg PO BID PRN 10/20/21 10/20/21 History Benzonatate [Tessalon Perles] 100 mg PO TID PRN 10/20/21 10/20/21 History Doxycycline Hyclate 100 mg PO BID 10/20/21 10/20/21 History Ondansetron Odt [Zofran Odt] 4 mg PO BID PRN 10/20/21 10/20/21 History Pantoprazole [Protonix] 40 mg PO BID 10/20/21 10/20/21 History hydrALAZINE HCL [Apresoline] 25 mg PO TID 10/20/21 10/20/21 History Allergies Allergy/AdvReac Type Severity Reaction Status Date / Time nitrofurantoin Allergy Nausea, Verified 10/20/21 17:09 [From Macrobid] itching Penicillins Allergy Anaphylaxis Verified 10/20/21 17:09 sulfamethoxazole Allergy Nausea, Verified 10/20/21 17:09 [From Bactrim] Itching trimethoprim [From Bactrim] Allergy Nausea, Verified 10/20/21 17:09 Itching aspirin AdvReac Abdominal Verified 10/20/21 17:09 Pain codeine AdvReac Confusion Verified 10/20/21 17:09 NSAIDS (Non-Steroidal AdvReac Abdominal Verified 10/20/21 17:09 Anti-Inflamma Pain Physical Exam Vitals: Vital Signs Temp Pulse Pulse Resp BP BP Pulse Ox 10/21/21 03:30 98.0 F 83 18 149/79 98 10/21/21 01:00 18 10/20/21 20:12 98.3 F 79 18 157/81 96 10/20/21 16:42 98.2 F 79 16 177/94 96 Intake and Output 10/20/21 10/21/21 10/21/21 22:59 06:59 14:59 Intake Total 900 Balance 900 Intake: Intake, IV Titration 900 Amount Sodium Chloride 0.9% 1, 900 000 ml @ 75 mls/hr IV . [id number] [facility] Rx#:[id number] Other: Voiding Method Toilet # Voids 2 Weight 70.307 kg 70.307 kg General appearance: The patient is alert, oriented, appears in no acute distress. HET: Head is normocephalic and atraumatic. Conjunctiva pink. Sclera anicteric. Neck: Supple without lymphadenopathy. Trachea midline. Heart: S1 S2. Regular rate and rhythm. Lungs: Clear to auscultation. Abdomen: Soft, nontender, nondistended with bowel sounds. No guarding or rigidity. Skin: No rashes. No jaundice. Extremities: Normal skin color and turgor. No pedal edema. Neurological: No focal deficits. Alert and oriented x3. Results CBC & Chem 7: 10/20/21 16:49 10/21/21 10:00 Labs: Abnormal Lab Results - Last 24 Hours (Table) 10/20/21 Range/Units 16:49 Sodium 128 L (137-145) mmol/L BUN 22 H (7-17) mg/dL Alkaline Phosphatase 138 H (38-126) U/L Total Protein 5.6 L (6.3-8.2) g/dL Albumin 3.3 L (3.5-5.0) g/dL CT scan - abdomen: report reviewed (Large stool burden throughout the colon with small bowel feces likely representing constipation/ileus. Stable left adrenal gland nodular thickening dating back to 03/20/2021. Similar postsurgical changes to the spine and distal esophagus.) Assessment and Plan (1) Nausea Narrative/Plan: 80-year-old female who presented to the emergency department with complaints of dizziness followed by some nausea but no vomiting. She also states she has some epigastric discomfort however that has resolved. She denies any difficulty with swallowing. Patient had a EGD with biopsy done on 08/27/2021 which showed a long segment of Castano's esophagus, moderate size hiatal hernia, and antral gastritis. Patient's nausea has resolved. She's had no vomiting. She did have a CT of the abdomen that did show moderate stool burden. Was given lactulose. If no improvement with lactulose may need to consider giving magnesium citrate. Continue with stool softeners and MiraLAX. Current Visit: Yes Status: Acute Code(s): R11.0 - NAUSEA SNOMED Code(s): 312399377 (2) Constipation Current Visit: Yes Status: Acute Code(s): K59.00 - CONSTIPATION, UNSPECIFIED SNOMED Code(s): 36596301 (3) Hyponatremia Current Visit: Yes Status: Acute Code(s): E87.1 - HYPO-OSMOLALITY AND HYPONATREMIA SNOMED Code(s): 69347357 Plan: 1. Continue symptomatic and supportive care 2. Continue to monitor electrolytes replace sodium 3. Antiemetics as needed 4. Continue stool softener and MiraLAX 5. If no relief with lactulose, consider magnesium citrate 6. No plans on endoscopic evaluation as patient underwent recent EGD on Thank you for this consultation, we will continue to follow. Dr. Stewart Canada I agree with the dictator's note, documented as a scribe by Janet Frias.
[2021-10-22 07:27] VITALS: RESP 17
[2021-10-22] MEDS: PANTOPRAZOLE 40 MG TABLET PO SCH ×2 (07:51→17:14)
[2021-10-22] MEDS ORDERED: ENOXAPARIN 40 MG/0.4 ML SYRINGE SQ SCH (09:00)
[2021-10-22] MEDS: FAMOTIDINE 20 MG TAB PO SCH (09:11)
[2021-10-22] MEDS: lisinopriL 20 MG TAB PO SCH (09:11)
[2021-10-22] MEDS: hydrALAZINE HCL 25 MG TAB PO SCH ×2 (09:11→17:14)
[2021-10-22] MEDS: ISOSORBIDE MONONITRATE ER 60 MG TAB.ER.24H PO SCH (09:12)
[2021-10-22 09:59] LABS: African American GFR (CKD) 101.2 (60.0-200.0); Anion Gap 9.4 mmol/L (10.00-18.00); BUN/Creat Ratio 17.67 Ratio (12.00-20.00); Blood Urea Nitrogen 10.6 mg/dL (9.0-27.0); Calcium 8.8 mg/dL (8.7-10.3); Carbon Dioxide 23.6 mmol/L (20.0-27.5); Non-African American GFR(CKD) 87.3 (60.0-200.0); Potassium 4.2 mmol/L (3.5-5.5)
[2021-10-22 12:19] VITALS: BP 174/82; PULSE 89; TEMP 97.4
--- NOTE | 2021-10-22 13:33 | P.PN ---
Subjective Progress Note Date: 10/22/21 Principal diagnosis: Dizziness, nausea 80-year-old female is admitted to the emergency room with complaints of dizziness followed by some nausea. Patient was noted to be hyponatremic. Apparently patient has had several episodes in the past of dizziness for which he has is soft medical treatment. She's also had history of chronic nausea and underwent an EGD in July [address] Canada with findings of Castano's esophagus, moderate hiatal hernia, mild antral gastritis. Patient denies today she's had no further nausea. She's had no vomiting. Denies abdominal pain. He had a CT of the abdomen and pelvis yesterday that showed moderate stool burden. She was given lactulose and states she had several bowel movements. Objective - Vital Signs Vital signs: Vital Signs Temp 97.5 F L 10/22/21 07:26 Pulse 86 10/22/21 07:26 Resp 17 10/22/21 07:26 BP 151/79 10/22/21 09:06 Pulse Ox 95 10/22/21 07:35 Intake & Output 10/21/21 10/22/21 10/22/21 18:59 06:59 18:59 Intake Total 1500 Balance 1500 Intake: Intake, IV Titration 900 Amount Sodium Chloride 0.9% 1, 900 000 ml @ 75 mls/hr IV . [id number] [facility] Rx#:[id number] Oral 600 Other: Voiding Method Toilet Self-Catheterization # Voids 2 # Bowel Movements 1 - Exam General appearance: The patient is alert, oriented, appears in no acute distress. HET: Head is normocephalic and atraumatic. Conjunctiva pink. Sclera anicteric. Neck: Supple without lymphadenopathy. Abdomen: Soft, nontender, nondistended with bowel sounds. No guarding or rigidity. Extremities: Normal skin color and turgor. No pedal edema Skin: No rashes, no jaundice Neurological: No focal deficits. Alert and oriented x 3. - Labs CBC & Chem 7: 10/20/21 16:49 10/22/21 06:45 Labs: Abnormal Lab Results - Last 24 Hours (Table) 10/21/21 10/21/21 10/22/21 Range/Units 10:00 19:00 06:45 Anion Gap 9.40 L (10.00-18.00) mmol/L Osmolality 270 L (280-301) mosm/kg Ur Random Sodium 27 L (40-220) mmol/L Assessment and Plan (1) Nausea Narrative/Plan: 80-year-old female who presented to the emergency department with complaints of dizziness followed by some nausea but no vomiting. She also states she has some epigastric discomfort however that has resolved. She denies any difficulty with swallowing. Patient had a EGD with biopsy done on 08/27/2021 which showed a long segment of Castano's esophagus, moderate size hiatal hernia, and antral gastritis. Patient's nausea has resolved. She's had no vomiting. She did have a CT of the abdomen that did show moderate stool burden. Was given lactulose. If no improvement with lactulose may need to consider giving magnesium citrate. Continue with stool softeners and MiraLAX. Current Visit: Yes Status: Acute Code(s): R11.0 - NAUSEA SNOMED Code(s): 972311927 (2) Constipation Narrative/Plan: Follow up outpatient with Dr. Canada. May consider changing stool regimen. Current Visit: Yes Status: Acute Code(s): K59.00 - CONSTIPATION, UNSPECIFIED SNOMED Code(s): 93251463 (3) Hyponatremia Current Visit: Yes Status: Acute Code(s): E87.1 - HYPO-OSMOLALITY AND HYPONATREMIA SNOMED Code(s): 42713506 Plan: 1. Continue symptomatic and supportive care 2. Continue to monitor electrolytes 3. Antiemetics as needed 4. Continue stool softener and MiraLAX 5. No plans on endoscopic evaluation as patient underwent recent EGD on 07/31 Thank you for this consultation, she is cleared for discharge from gastroenterology was otherwise medically clear. Recommend outpatient follow-up with gastroenterology for constipation. Dr. Stewart Canada I agree with the dictator's note, documented as a scribe by Janet Frias.
[2021-10-22] MEDS ORDERED: HEPARIN SODIUM,PORCINE/PF 5,000 UNIT/0.5 ML SYRINGE SQ SCH (21:00)
--- NOTE | 2021-10-24 02:00 | P.DS ---
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 Patient will follow-up with Dr. Kirstie Alonso in the outpatient setting upon discharge. Patient is to also follow up with GI Dr. Canada as scheduled. Patient to continue with scheduled bowel regimen. Total time taken is greater than 35 minutes. Hospital Course This is a 80-year-old female who was recently admitted abdominal pain nausea and vomiting and constipation. Patient had imaging done which showed large amount of stool burden. Patient was seen by GI and will follow in the outpatient setting. Patient sodium improved recommend to restrict fluid intake and repeat labs in a few days. Continue scheduled bowel regimen. Patient anxious and nervous on exam and denies depression but is tearful when discussing her overall health. Will add low dose Celexa and encouraged the patient to follow up with Dr. Alonso this week. Currently no reports of chest pain, shortness of breath, or palpitations. Patient is afebrile. No reports of nausea or vomiting and patient is tolerating diet. Patient will be discharge home today. PHYSICAL EXAMINATION: GENERAL: The patient is alert and oriented x3, not in any acute distress.Anxious, tearful, Well developed, well nourished. HEENT: Pupils are round and equally reacting to light. EOMI. No scleral icterus. No conjunctival pallor. Normocephalic, atraumatic. No pharyngeal erythema. No thyromegaly. CARDIOVASCULAR: S1 and S2 present. No murmurs, rubs, or gallops. PULMONARY: Chest is clear to auscultation, no wheezing or crackles. ABDOMEN: Soft, nontender, nondistended, normoactive bowel sounds. No palpable organomegaly. MUSCULOSKELETAL: No joint swelling or deformity. EXTREMITIES: No cyanosis, clubbing, or pedal edema. NEUROLOGICAL: Gross neurological examination did not reveal any focal deficits. SKIN: No rashes. Please refer to medication reconciliation sheet for a list of medications. The impression and plan of care has been dictated by Carolyn España, nurse practitioner as directed. Dr. Michelle MD I have performed a history and examination and MDM of this patient, discussed the same with the dictator, and agree with the dictator's assessment and plan as written ,documented as a scribe. Based on total visit time, I have performed more than 50% of the visit. Any additional findings or plans will be noted. Patient Condition at Discharge: Stable Plan - Discharge Summary Discharge Rx Participant: No New Discharge Prescriptions: New LORazepam [Ativan] 0.5 mg PO BID PRN 3 Days #6 tab PRN Reason: Anxiety Citalopram Hydrobromide [CeleXA] 20 mg PO DAILY 30 Days #30 tablet Continue Isosorbide Mononitrate ER [Imdur] 60 mg PO DAILY Fosinopril Sodium [Monopril] 20 mg PO BID Diltiazem HCl [Cardizem LA] 300 mg PO DAILY Multivit-Min/FA/Lycopen/Lutein [Centrum Silver Tablet] 1 tab PO BID Vit C/E/Zn/Coppr/Lutein/Zeaxan [Preservision Areds 2 Softgel] 1 cap PO BID Famotidine/Ca Carb/Mag Hydrox [Pepcid Complete Tablet Chew] 1 tab PO DAILY Acetaminophen Tab [Tylenol] 650 mg PO Q6HR PRN tab PRN Reason: Fever And/ Or Pain Pantoprazole [Protonix] 40 mg PO BID Benzonatate [Tessalon Perles] 100 mg PO TID PRN PRN Reason: Cough Nitroglycerin Sl Tabs [Nitrostat] 0.4 mg SL Q5M PRN PRN Reason: Chest Pain Aspirin EC [Ecotrin Low Dose] 81 mg PO DAILY Polyethylene Glycol 3350 [Miralax] 17 gm PO BID PRN PRN Reason: Constipation Simethicone [Gas-X] 125 mg PO TID PRN PRN Reason: Gi Upset hydrALAZINE HCL [Apresoline] 25 mg PO TID Ondansetron Odt [Zofran ODT] 4 mg PO BID PRN PRN Reason: Nausea Baclofen [Lioresal] 10 mg PO BID PRN PRN Reason: Muscle Pain Discontinued Doxycycline Hyclate 100 mg PO BID Discharge Medication List Diltiazem HCl [Cardizem LA] 300 mg PO DAILY 03/20/21 [History] Fosinopril Sodium [Monopril] 20 mg PO BID 03/20/21 [History] Isosorbide Mononitrate ER [Imdur] 60 mg PO DAILY 03/20/21 [History] Nitroglycerin Sl Tabs [Nitrostat] 0.4 mg SL Q5M PRN 03/20/21 [History] Aspirin EC [Ecotrin Low Dose] 81 mg PO DAILY 06/16/21 [History] Polyethylene Glycol 3350 [Miralax] 17 gm PO BID PRN 06/24/21 [History] Famotidine/Ca Carb/Mag Hydrox [Pepcid Complete Tablet Chew] 1 tab PO DAILY 09/17/21 [History] Multivit-Min/FA/Lycopen/Lutein [Centrum Silver Tablet] 1 tab PO BID 09/17/21 [History] Simethicone [Gas-X] 125 mg PO TID PRN 09/17/21 [History] Vit C/E/Zn/Coppr/Lutein/Zeaxan [Preservision Areds 2 Softgel] 1 cap PO BID 09/17/21 [History] Acetaminophen Tab [Tylenol] 650 mg PO Q6HR PRN tab 09/21/21 [Rx] Baclofen [Lioresal] 10 mg PO BID PRN 10/20/21 [History] Benzonatate [Tessalon Perles] 100 mg PO TID PRN 10/20/21 [History] Ondansetron Odt [Zofran ODT] 4 mg PO BID PRN 10/20/21 [History] Pantoprazole [Protonix] 40 mg PO BID 10/20/21 [History] hydrALAZINE HCL [Apresoline] 25 mg PO TID 10/20/21 [History] Citalopram Hydrobromide [CeleXA] 20 mg PO DAILY 30 Days #30 tablet 10/22/21 [Rx] LORazepam [Ativan] 0.5 mg PO BID PRN 3 Days #6 tab 10/22/21 [Rx] Follow up Appointment(s)/Referral(s): Kirstie Alonso MD [Primary Care Provider] - 10/27/21 2:00 pm ( ) Krystyna Canada MD [STAFF PHYSICIAN] - 3 Weeks (patient will have to call and schedule own appt.) Félix Canada MD [STAFF PHYSICIAN] - 10/29/21 10:45 am (0ffice canceled the appointment on the .new apppointment scheduled for october) Ambulatory/Diagnostic Orders: Basic Metabolic Panel [LAB.AMB] Time Frame: 2 Days, Location: None Selected Patient Instructions/Handouts: Lorazepam (By mouth), Citalopram (By mouth), Hyponatremia (DC), Basic Metabolic Panel (GEN), Weakness (DC) Activity/Diet/Wound Care/Special Instructions: Activity Limited until follow-up Continue current diet Recommend follow-up with primary care provider on discharge Recommend repeat labs in 2-3 days Recommend follow-up with surgeon in the outpatient setting Follow-up with urologist as previously scheduled Continue with bowel regimen and continue with MiraLAX along with stool softeners Follow-up with GI outpatient in 3 weeks Follow-up cardiology in the outpatient setting Discharge Disposition: HOME SELF-CARE
== END 2021-10-22 17:40 | disposition home or self-care (01) | DRG 641 ==
LOC: EC 16:33 → 5NMEDONC 19:18
PROVIDERS: ADMIT Hospitalist; ATTEND Hospitalist
DX: E87.1 Hypo-osmolality and hyponatremia (principal); E86.0 Dehydration; Z20.822 Contact with and (suspected) exposure to COVID-19; K44.9 Diaphragmatic hernia without obstruction or gangrene; I10 Essential (primary) hypertension; R63.1 Polydipsia; K59.09 Other constipation; K22.70 Barrett's esophagus without dysplasia; K29.70 Gastritis, unspecified, without bleeding; K21.9 Gastro-esophageal reflux disease without esophagitis; R11.10 Vomiting, unspecified; M19.90 Unspecified osteoarthritis, unspecified site; Z79.82 Long term (current) use of aspirin; Z79.899 Other long term (current) drug therapy; Z87.891 Personal history of nicotine dependence; Z98.1 Arthrodesis status; Z87.19 Personal history of other diseases of the digestive system; Z87.01 Personal history of pneumonia (recurrent); Z98.890 Other specified postprocedural states; Z88.6 Allergy status to analgesic agent; Z88.5 Allergy status to narcotic agent; Z88.0 Allergy status to penicillin; Z88.2 Allergy status to sulfonamides; Z88.8 Allergy status to other drugs, medicaments and biological substances
CPT/HCPCS: 36415; 71046; 74177; 80048; 80053; 81003; 83605; 83735; 83930; 83935; 84300; 84443; 84484; 85025; 85610; 85730; 87635; 93005; 94760; 99285

== ENCOUNTER → 2021-10-26 | Outpatient (CLI) | payer MEDICARE ==
[2021-10-26 20:17] LABS: African American GFR (CKD) 101.2 (60.0-200.0); Anion Gap 9.9 mmol/L (10.00-18.00); Blood Urea Nitrogen 10.8 mg/dL (9.0-27.0); Carbon Dioxide 23.1 mmol/L (20.0-27.5); Non-African American GFR(CKD) 87.3 (60.0-200.0); Potassium 5.2 mmol/L (3.5-5.5)
== END | disposition home or self-care (01) ==
LOC: LABWHC1 13:21
PROVIDERS: ATTEND Registered Nurse
DX: E87.1 Hypo-osmolality and hyponatremia (principal)
CPT/HCPCS: 36415; 80048

== ENCOUNTER 2022-02-18 13:19 | Inpatient (IN) | payer MEDICARE ==
[2022-02-18] MEDS ORDERED: SODIUM CHLORIDE 0.9% 1,000 ML IV STA ×2 (13:39)
--- NOTE | 2022-02-18 13:49 | ED ---
General Adult HPI - General Chief complaint: Weakness Stated complaint: Hypertension Time Seen by Provider: 02/18/22 13:19 Source: patient, EMS, RN notes reviewed Mode of arrival: EMS - History of Present Illness Initial comments: 81-year-old female history of hypertension history of hiatal hernia surgery and rectal prolapse surgery in the past who presents by EMS today with complaints of generalized weakness epigastric pain dizziness lightheadedness she states her blood pressures are running high today in spite of her medications. The pain is stated to be epigastric in location moderate in severity associated with nausea dizziness lightheadedness she denies any overt fevers chills sweats. Glucose was reported to be 148 per paramedics monitor showed a heart rate of 80-105 believed to be sinus. Patient also admit she's had decreased oral intake over last couple days. - Related Data Home Medications Medication Instructions Recorded Confirmed Fosinopril Sodium [Monopril] 20 mg PO BID 03/20/21 10/20/21 Isosorbide Mononitrate ER [Imdur] 60 mg PO DAILY 03/20/21 10/20/21 Nitroglycerin Sl Tabs [Nitrostat] 0.4 mg SL Q5M PRN 03/20/21 10/20/21 dilTIAZem HCL [Cardizem LA] 300 mg PO DAILY 03/20/21 10/20/21 Aspirin EC [Ecotrin Low Dose] 81 mg PO DAILY 06/16/21 10/20/21 polyethylene glycoL 3350 [Miralax] 17 gm PO BID PRN 06/24/21 10/20/21 Famotidine/Ca Carb/Mag Hydrox 1 tab PO DAILY 09/17/21 10/20/21 [Pepcid Complete Tablet Chew] Multivit-Min/FA/Lycopen/Lutein 1 tab PO BID 09/17/21 10/20/21 [Centrum Silver Tablet] Simethicone [Gas-X] 125 mg PO TID PRN 09/17/21 10/20/21 Vit C/E/Zn/Coppr/Lutein/Zeaxan 1 cap PO BID 09/17/21 10/20/21 [Preservision Areds 2 Softgel] Baclofen [Lioresal] 10 mg PO BID PRN 10/20/21 10/20/21 Benzonatate [Tessalon Perles] 100 mg PO TID PRN 10/20/21 10/20/21 Ondansetron Odt [Zofran ODT] 4 mg PO BID PRN 10/20/21 10/20/21 Pantoprazole [Protonix] 40 mg PO BID 10/20/21 10/20/21 hydrALAZINE HCL [Apresoline] 25 mg PO TID 10/20/21 10/20/21 Previous Rx's Medication Instructions Recorded Acetaminophen Tab [Tylenol] 650 mg PO Q6HR PRN tab 09/21/21 Citalopram Hydrobromide [CeleXA] 20 mg PO DAILY 30 Days #30 tablet 10/22/21 LORazepam [Ativan] 0.5 mg PO BID PRN 3 Days #6 tab 10/22/21 Allergies Allergy/AdvReac Type Severity Reaction Status Date / Time nitrofurantoin Allergy Nausea, Verified 10/20/21 17:09 [From Macrobid] itching Penicillins Allergy Anaphylaxis Verified 10/20/21 17:09 sulfamethoxazole Allergy Nausea, Verified 10/20/21 17:09 [From Bactrim] Itching trimethoprim [From Bactrim] Allergy Nausea, Verified 10/20/21 17:09 Itching aspirin AdvReac Abdominal Verified 10/20/21 17:09 Pain codeine AdvReac Confusion Verified 10/20/21 17:09 NSAIDS (Non-Steroidal AdvReac Abdominal Verified 10/20/21 17:09 Anti-Inflamma Pain Review of Systems ROS Statement: Those systems with pertinent positive or pertinent negative responses have been documented in the HPI. ROS Other: All systems not noted in ROS Statement are negative. Past Medical History Past Medical History: Chest Pain / Angina, Hypertension Additional Past Medical History / Comment(s): arthritis History of Any Multi-Drug Resistant Organisms: None Reported Past Surgical History: Back Surgery, Heart Catheterization, Hernia Repair, Orthopedic Surgery Additional Past Surgical History / Comment(s): Neck fusion. colon proloapse reconstructions 04/2021. hiatal hernia repair x2 12/2020 Past Anesthesia/Blood Transfusion Reactions: No Reported Reaction Past Psychological History: No Psychological Hx Reported Smoking Status: Former smoker Past Alcohol Use History: None Reported Past Drug Use History: None Reported General Exam - General Exam Comments Initial Comments: Is a well-developed well-nourished awake alert oriented 4 female General appearance: alert, anxious Head exam: Present: atraumatic, normocephalic, normal inspection Eye exam: Present: normal appearance, PERRL, EOMI. Absent: scleral icterus, conjunctival injection, periorbital swelling ENT exam: Present: mucous membranes dry Neck exam: Present: normal inspection, full ROM, other (No stridor JVD or bruits). Absent: tenderness, meningismus, lymphadenopathy Respiratory exam: Present: normal lung sounds bilaterally. Absent: respiratory distress, wheezes, rales, rhonchi, stridor Cardiovascular Exam: Present: regular rate, normal rhythm, normal heart sounds. Absent: systolic murmur, diastolic murmur, rubs, gallop, clicks GI/Abdominal exam: Present: soft, tenderness (Mild epigastric discomfort no gu arding rebound masses or bruits), normal bowel sounds. Absent: distended, guarding, rebound, rigid Rectal exam: Present: deferred Extremities exam: Present: normal inspection, full ROM, normal capillary refill. Absent: tenderness, pedal edema, joint swelling, calf tenderness Back exam: Present: normal inspection Neurological exam: Present: alert, oriented X3, CN II-XII intact Psychiatric exam: Present: normal affect, anxious Skin exam: Present: warm, dry, intact, normal color. Absent: rash Course Vital Signs 02/18/22 02/18/22 02/18/22 13:30 13:36 14:00 Pulse Rate 96 92 96 Respiratory 18 Rate Blood Pressure 178/88 179/88 180/94 O2 Sat by Pulse 97 97 98 Oximetry 02/18/22 15:00 Pulse Rate 98 Respiratory Rate Blood Pressure 179/99 O2 Sat by Pulse Oximetry EKG Findings - EKG Results: EKG: interpreted by ERMD, sinus rhythm (Sinus rhythm 98 bpm QRS 86 QT since QTC 350/405 nonspecific inferior changes a marked amount of artifact noted.) Medical Decision Making - Medical Decision Making The patient persists in feeling weak lightheaded. I did discuss the findings with her also with Dr. Corral the patient be admitted for inpatient evaluation and treatment she does demonstrate evidence of hyponatremia dehydration - Lab Data Result diagrams: 02/18/22 13:44 02/18/22 15:34 Lab Results 02/18/22 02/18/22 02/18/22 Range/Units 13:44 13:44 13:44 WBC 4.8 (3.8-10.6) k/uL RBC 4.57 (3.80-5.40) m/uL Hgb 13.8 (11.4-16.0) gm/dL Hct 40.6 (34.0-46.0) % MCV 88.7 (80.0-100.0) fL MCH 30.2 (25.0-35.0) pg MCHC 34.0 (31.0-37.0) g/dL RDW 13.8 (11.5-15.5) % Plt Count 274 (150-450) k/uL MPV 7.5 Neutrophils % 67 % Lymphocytes % 23 % Monocytes % 7 % Eosinophils % 1 % Basophils % 1 % Neutrophils # 3.2 (1.3-7.7) k/uL Lymphocytes # 1.1 (1.0-4.8) k/uL Monocytes # 0.3 (0-1.0) k/uL Eosinophils # 0.0 (0-0.7) k/uL Basophils # 0.0 (0-0.2) k/uL Sodium (137-145) mmol/L Potassium (3.5-5.1) mmol/L Chloride (98-107) mmol/L Carbon Dioxide (22-30) mmol/L Anion Gap mmol/L BUN (7-17) mg/dL Creatinine (0.52-1.04) mg/dL Est GFR (CKD-EPI)AfAm (>60 ml/min/1.73 sqM) Est GFR (CKD-EPI)NonAf (>60 ml/min/1.73 sqM) Glucose (74-99) mg/dL Plasma Lactic Acid Rogelio 0.9 (0.7-2.0) mmol/L Calcium (8.4-10.2) mg/dL Magnesium (1.6-2.3) mg/dL Total Bilirubin (0.2-1.3) mg/dL AST (14-36) U/L ALT (4-34) U/L Alkaline Phosphatase (38-126) U/L Creatine Kinase (30-135) U/L Troponin I (0.000-0.034) ng/mL Total Protein (6.3-8.2) g/dL Albumin (3.5-5.0) g/dL Lipase (23-300) U/L Urine Color Light Yellow Urine Appearance Clear (Clear) Urine pH 6.5 (5.0-8.0) Ur Specific [place] 1.006 (1.001-1.035) Urine Protein Negative (Negative) Urine Glucose (UA) Negative (Negative) Urine Ketones 1+ H (Negative) Urine Blood Negative (Negative) Urine Nitrite Negative (Negative) Urine Bilirubin Negative (Negative) Urine Urobilinogen <2.0 (<2.0) mg/dL Ur Leukocyte Esterase Small H (Negative) Urine RBC 4 (0-5) /hpf Urine WBC 6 H (0-5) /hpf Ur Squamous Epith Cells 1 (0-4) /hpf Urine Bacteria Moderate H (None) /hpf Urine Mucus Rare H (None) /hpf 02/18/22 02/18/22 Range/Units 15:34 15:34 WBC (3.8-10.6) k/uL RBC (3.80-5.40) m/uL Hgb (11.4-16.0) gm/dL Hct (34.0-46.0) % MCV (80.0-100.0) fL MCH (25.0-35.0) pg MCHC (31.0-37.0) g/dL RDW (11.5-15.5) % Plt Count (150-450) k/uL MPV Neutrophils % % Lymphocytes % % Monocytes % % Eosinophils % % Basophils % % Neutrophils # (1.3-7.7) k/uL Lymphocytes # (1.0-4.8) k/uL Monocytes # (0-1.0) k/uL Eosinophils # (0-0.7) k/uL Basophils # (0-0.2) k/uL Sodium 125 L (137-145) mmol/L Potassium 3.5 (3.5-5.1) mmol/L Chloride 94 L (98-107) mmol/L Carbon Dioxide 25 (22-30) mmol/L Anion Gap 6 mmol/L BUN 9 (7-17) mg/dL Creatinine 0.50 L (0.52-1.04) mg/dL Est GFR (CKD-EPI)AfAm >90 (>60 ml/min/1.73 sqM) Est GFR (CKD-EPI)NonAf >90 (>60 ml/min/1.73 sqM) Glucose 111 H (74-99) mg/dL Plasma Lactic Acid Rogelio (0.7-2.0) mmol/L Calcium 8.7 (8.4-10.2) mg/dL Magnesium 1.8 (1.6-2.3) mg/dL Total Bilirubin 0.5 (0.2-1.3) mg/dL AST 21 (14-36) U/L ALT 14 (4-34) U/L Alkaline Phosphatase 95 (38-126) U/L Creatine Kinase 59 (30-135) U/L Troponin I <0.012 (0.000-0.034) ng/mL Total Protein 5.9 L (6.3-8.2) g/dL Albumin 3.7 (3.5-5.0) g/dL Lipase 320 H (23-300) U/L Urine Color Urine Appearance (Clear) Urine pH (5.0-8.0) Ur Specific [place] (1.001-1.035) Urine Protein (Negative) Urine Glucose (UA) (Negative) Urine Ketones (Negative) Urine Blood (Negative) Urine Nitrite (Negative) Urine Bilirubin (Negative) Urine Urobilinogen (<2.0) mg/dL Ur Leukocyte Esterase (Negative) Urine RBC (0-5) /hpf Urine WBC (0-5) /hpf Ur Squamous Epith Cells (0-4) /hpf Urine Bacteria (None) /hpf Urine Mucus (None) /hpf - Radiology Data Radiology results: report reviewed (Imaging reviewed no acute findings), image reviewed Disposition Clinical Impression: Hyponatremia syndrome, Dehydration, Weakness Disposition: ADMITTED IP TO THIS [facility] Condition: Fair Referrals: Kirstie Alonso MD [Primary Care Provider] - 1-2 days Decision Date: 02/18/22 Decision Time: 19:30
--- NOTE | 2022-02-18 15:07 | XR ---
EXAMINATION TYPE: XR KUB DATE OF EXAM: 02/18/2022 COMPARISON: X-ray dated 03/20/2021 INDICATION: Epigastric pain TECHNIQUE: One AP supine view of the abdomen FINDINGS: Cholecystectomy clips. Nonspecific bowel gas distribution pattern. No significant fecal loading of th e colon. Arterial atherosclerotic calcification. Dextroscoliosis of the lumbar spine. Marked degenerative changes of the lumbar spine and to a lesser extent the right sacroiliac joint. Sc lerotic focus in the left femoral neck, appreciated previously. IMPRESSION: As above.
--- NOTE | 2022-02-18 15:09 | XR ---
EXAMINATION TYPE: XR chest 2V DATE OF EXAM: 02/18/2022 COMPARISON: X-ray dated 10/20/2021 HISTORY: Epigastric pain TECHNIQUE: Frontal and lateral views of the chest are obtained. FINDINGS: Questionable minimal left basal pulmonary atelectasis. Grossly unremarkable lungs otherwise. No sizab le pleural effusion or definite pneumothorax. Increased cardiac transverse diameter. Aortic atherosclerosis calcifications. Degenerative changes of the thoracic spine and glenohumeral articulations. IMPRESSION: As above.
[2022-02-18 15:18] LABS: Basophils % (A) 1 %; Eosinophils % (A) 1 %; HCT 40.6 % (34.0-46.0); HGB 13.8 gm/dL (11.4-16.0); Lymphocytes # (A) 1.1 k/uL (1.0-4.8); Lymphocytes % (A) 23 %; MCH 30.2 pg (25.0-35.0); MCV 88.7 fL (80.0-100.0); Mean Platelet Volume 7.5; Monocytes # (A) 0.3 k/uL (0-1.0); Monocytes % (A) 7 %; Neutrophils # (A) 3.2 k/uL (1.3-7.7); Neutrophils % (A) 67 %; Platelet Count 274 k/uL (150-450); RBC 4.57 m/uL (3.80-5.40); RDW 13.8 % (11.5-15.5); WBC 4.8 k/uL (3.8-10.6)
[2022-02-18 16:01] LABS: ALT 14 U/L (4-34); AST 21 U/L (14-36); African American GFR (CKD) >90 (>60 ml/min/1.73 sqM); Albumin 3.7 g/dL (3.5-5.0); Alkaline Phosphatase 95 U/L (38-126); Anion Gap 6 mmol/L; Blood Urea Nitrogen 9 mg/dL (7-17); Calcium 8.7 mg/dL (8.4-10.2); Carbon Dioxide 25 mmol/L (22-30); Chloride 94 mmol/L (98-107); Creatine Kinase 59 U/L (30-135); Glucose 111 mg/dL (74-99); Lipase 320 U/L (23-300); Magnesium 1.8 mg/dL (1.6-2.3); Non-African American GFR(CKD) >90 (>60 ml/min/1.73 sqM); Potassium 3.5 mmol/L (3.5-5.1); Sodium 125 mmol/L (137-145); Total Bilirubin 0.5 mg/dL (0.2-1.3); Total Protein 5.9 g/dL (6.3-8.2)
[2022-02-18 17:21] LABS: Appearance,Urine Clear (Clear); Bacteria,Urine Moderate /hpf; Bilirubin,Urine Negative (Negative); Blood,Urine Negative (Negative); Color,Urine Light Yellow; Glucose,Urine (UA) Negative (Negative); Ketones,Urine 1+ (Negative); Leukocyte Esterase,Urine Small (Negative); Mucus,Urine Rare /hpf; Nitrite,Urine Negative (Negative); PH, Urine 6.5 (5.0-8.0); Protein,Urine Negative (Negative); RBC,Urine 4 /hpf (0-5); Specific Gravity,Urine 1.006 (1.001-1.035); Squamous Epithelial Cell,Urine 1 /hpf (0-4); Urobilinogen,Urine <2.0 mg/dL (<2.0); WBC,Urine 6 /hpf (0-5)
[2022-02-18] MEDS ORDERED: ACETAMINOPHEN TAB 325 MG TAB PO PRN (20:08)
[2022-02-18] MEDS ORDERED: NALOXONE 0.4 MG/ML 1 ML VIAL IV PRN (20:08)
[2022-02-18] MEDS ORDERED: ONDANSETRON ODT 4 MG TAB PO PRN (20:10)
[2022-02-18] MEDS ORDERED: BACLOFEN 10 MG TAB PO PRN (20:10)
[2022-02-18] MEDS ORDERED: BENZONATATE 100 MG CAP PO PRN (20:10)
[2022-02-18] MEDS ORDERED: LORazepam 0.5 MG TAB PO PRN (20:10)
[2022-02-18] MEDS ORDERED: polyethylene glycoL 3350 17 GM POWD.PACK PO PRN (20:10)
[2022-02-18] MEDS ORDERED: NITROGLYCERIN SL TABS 0.4 MG TAB SUBLINGUAL PRN (20:10)
[2022-02-18] MEDS ORDERED: SIMETHICONE 80 MG CHEWABLE PO PRN (20:10)
[2022-02-18] MEDS: lisinopriL 20 MG TAB PO SCH (21:28)
[2022-02-18] MEDS: PANTOPRAZOLE 40 MG TABLET PO SCH ×2 (21:29→21:31)
[2022-02-18] MEDS: hydrALAZINE HCL 25 MG TAB PO SCH (21:29)
[2022-02-18] MEDS: VIT A,C & E-LUTEIN-MINERALS 1 EACH TAB PO SCH (21:30)
[2022-02-18] MEDS: SODIUM CHLORIDE 0.9% 1,000 ML IV SCH (21:31)
[2022-02-18] MEDS: MULTIVITAMINS, THERA 1 EACH TAB PO SCH (21:31)
[2022-02-19] MEDS: PANTOPRAZOLE 40 MG TABLET PO SCH ×2 (06:37→17:03)
[2022-02-19] MEDS: SODIUM CHLORIDE 0.9% 1,000 ML IV SCH ×2 (06:37→17:05)
[2022-02-19] MEDS: VIT A,C & E-LUTEIN-MINERALS 1 EACH TAB PO SCH ×2 (08:24→20:55)
[2022-02-19] MEDS: DILTIAZEM CD 300 MG CAP.ER.24H PO SCH (08:25)
[2022-02-19] MEDS: ISOSORBIDE MONONITRATE ER 60 MG TAB.ER.24H PO SCH (08:25)
[2022-02-19] MEDS: FAMOTIDINE 20 MG TAB PO SCH (08:27)
[2022-02-19] MEDS: lisinopriL 20 MG TAB PO SCH ×2 (08:27→20:56)
[2022-02-19] MEDS: MULTIVITAMINS, THERA 1 EACH TAB PO SCH ×2 (08:27→20:55)
[2022-02-19] MEDS: hydrALAZINE HCL 25 MG TAB PO SCH ×3 (08:27→22:10)
[2022-02-19] MEDS: ASPIRIN 81 MG PO SCH (08:27)
[2022-02-19] MEDS: CITALOPRAM HYDROBROMIDE 20 MG TAB PO SCH (08:27)
--- NOTE | 2022-02-19 09:28 | P.HPIM ---
History of Present Illness This is a pleasant 81 his old female with past medical history of hypertension Patient presents because of episodes of epigastric discomfort and dizziness. Patient states that she started having some epigastric discomfort about 6:54 AM, nonradiating about 67/10 in severity, nonspecific in character or felt like a grabbing sensation. No associated nausea vomiting or diarrhea. This has been associated with some nonspecific dizziness and got disoriented and by 10:00 she got more exhausted and she could not get up so she got concerned and came to the emergency room. Patient states that this is the third time she has such epis odes. Patient woke up this morning and she feels back to normal self. She denies any epigastric pain. No dizziness. No exertion. She denies dyspnea or coughing. No headache or new weakness or numbness. No blurred vision. She denies smoking, alcohol or illicit drug Patient states that she drinks a lot of water after she had rectal prolapse she has been told to drink a lot of water to help her bowel and this is been going on for the last 6 months Also patient was on water pill, hydrochlorothiazide however she says she is not diabetic regularly and the last time she took it was about 1 week ago. Patient states that she is able to walk normally this morning Patient declines to me she is taking baclofen oral Ativan which is listed as home medication patient arrives to the emergency department from home by EMS. Patient states not feeling well this morning and becoming increasingly weaker throughout the day. vitals are stable on admission CBC is unremarkable BMP showing hyponatremia with sodium 125, creatinine 0.5, BUN 9. Liver enzymes normal. Troponin negative. Lipase minimally elevated. Urinalysis mildly abnormal with small leukocyte esterase and moderate bacteria EKG: Sinus rate of 98. No significant ST-T changes chest x-ray: Increased cardiac transverse diameter. Questionable minimal left basal atelectasis. Grossly unremarkable lungs otherwise. KUB: Cholecystectomy. No specific bowel gas pattern On admission patient received normal saline in the emergency room Echocardiogram from 08/2021 showing ejection fraction more than 55% Also patient has recent EGD: On 08/27/2021 showed long segment of Castano's esophagus. Hiatal hernia and gastritis per . At that time she has similar presentation about 4 months ago. Today's complaint Review of Systems Review of systems CONSTITUTIONAL: No fever, no malaise, no fatigue. HEENT: No recent visual problems or hearing problems. Denied any sore throat. CARDIOVASCULAR: No orthopnea, PND, no palpitations, no syncope. PULMONARY: No shortness of breath, no cough, no hemoptysis. GASTROINTESTINAL: No diarrhea, no nausea, no vomiting, no abdominal pain. Normoactive bowel sounds. NEUROLOGICAL: No headaches, no weakness, no numbness. HEMATOLOGICAL: Denies any bleeding or petechiae. GENITOURINARY: Denies any burning micturition, frequency, or urgency. MUSCULOSKELETAL/RHEUMATOLOGICAL: Denies any joint pain, swelling, or any muscle pain. ENDOCRINE: Denies any polyuria or polydipsia. Past Medical History Past Medical History: Chest Pain / Angina, Hypertension Additional Past Medical History / Comment(s): arthritis History of Any Multi-Drug Resistant Organisms: None Reported Past Surgical History: Back Surgery, Heart Catheterization, Hernia Repair, Orthopedic Surgery Additional Past Surgical History / Comment(s): Neck fusion. colon proloapse reconstructions 04/2021. hiatal hernia repair x2 12/2020 Past Anesthesia/Blood Transfusion Reactions: No Reported Reaction Past Psychological History: No Psychological Hx Reported Smoking Status: Former smoker Past Alcohol Use History: None Reported Past Drug Use History: None Reported Medications and Allergies Home Medications Medication Instructions Recorded Confirmed Type Fosinopril Sodium [Monopril] 20 mg PO BID 03/20/21 02/18/22 History Isosorbide Mononitrate ER [Imdur] 60 mg PO DAILY 03/20/21 02/18/22 History Nitroglycerin Sl Tabs [Nitrostat] 0.4 mg SL Q5M PRN 03/20/21 02/18/22 History dilTIAZem HCL [Cardizem LA] 300 mg PO HS 03/20/21 02/18/22 History polyethylene glycoL 3350 [Miralax] 17 gm PO DAILY 06/24/21 02/18/22 History Vit C/E/Zn/Coppr/Lutein/Zeaxan 1 cap PO BID 09/17/21 02/18/22 History [Preservision Areds 2 Softgel] Acetaminophen Tab [Tylenol] 650 mg PO Q6HR PRN tab 09/21/21 02/18/22 Rx Ondansetron Odt [Zofran ODT] 4 mg PO BID PRN 10/20/21 02/18/22 History Pantoprazole [Protonix] 40 mg PO BID PRN 10/20/21 02/18/22 History Erythromycin Ophth Oint [Romycin 1 applic LEFT EYE BID 02/18/22 02/18/22 History Ophth Oint] hydrALAZINE HCL [Apresoline] 100 mg PO BID 02/18/22 02/18/22 History hydroCHLOROthiazide [Hydrodiuril] 12.5 mg PO DAILY 02/18/22 02/18/22 History Allergies Allergy/AdvReac Type Severity Reaction Status Date / Time nitrofurantoin Allergy Nausea, Verified 02/18/22 21:02 [From Macrobid] itching Penicillins Allergy Anaphylaxis Verified 02/18/22 21:02 sulfamethoxazole Allergy Nausea, Verified 02/18/22 21:02 [From Bactrim] Itching trimethoprim [From Bactrim] Allergy Nausea, Verified 02/18/22 21:02 Itching aspirin AdvReac Abdominal Verified 02/18/22 21:02 Pain codeine AdvReac Confusion Verified 02/18/22 21:02 NSAIDS (Non-Steroidal AdvReac Abdominal Verified 02/18/22 21:02 Anti-Inflamma Pain Physical Exam Vitals: Vital Signs Temp Pulse Pulse Resp BP BP Pulse Ox 02/19/22 04:00 98.5 F 80 18 160/78 97 02/19/22 02:00 93 16 02/19/22 01:37 98.1 F 93 16 151/96 96 02/18/22 21:23 98 17 158/90 96 02/18/22 15:00 98 179/99 02/18/22 14:00 96 180/94 98 02/18/22 13:36 92 18 179/88 97 02/18/22 13:30 96 178/88 97 Intake and Output 02/18/22 02/19/22 02/19/22 22:59 06:59 14:59 Other: # Voids 1 Weight 72.121 kg GENERAL: The patient is alert and oriented x3, not in any acute distress. Well developed, well nourished. HEENT: Pupils are round and equally reacting to light. EOMI. No scleral icterus. No conjunctival pallor. Normocephalic, atraumatic. No pharyngeal erythema. No thyromegaly. CARDIOVASCULAR: S1 and S2 present. No murmurs, rubs, or gallops. PULMONARY: Chest is clear to auscultation, no wheezing or crackles. ABDOMEN: Soft, nontender, nondistended, normoactive bowel sounds. No palpable organomegaly. MUSCULOSKELETAL: No joint swelling or deformity. EXTREMITIES: No cyanosis, clubbing, or pedal edema. NEUROLOGICAL: Gross neurological examination did not reveal any focal deficits. SKIN: No rashes. no petechiae. Results CBC & Chem 7: 02/18/22 13:44 02/18/22 15:34 Labs: Abnormal Lab Results - Last 24 Hours (Table) 02/18/22 02/18/22 Range/Units 13:44 15:34 Sodium 125 L (137-145) mmol/L Chloride 94 L (98-107) mmol/L Creatinine 0.50 L (0.52-1.04) mg/dL Glucose 111 H (74-99) mg/dL Total Protein 5.9 L (6.3-8.2) g/dL Lipase 320 H (23-300) U/L Urine Ketones 1+ H (Negative) Ur Leukocyte Esterase Small H (Negative) Urine WBC 6 H (0-5) /hpf Urine Bacteria Moderate H (None) /hpf Urine Mucus Rare H (None) /hpf Thrombosis Risk Factor Assmnt - Choose All That Apply Each Factor Represents 1 point: Obesity (BMI >25) Other Risk Factors: Yes Each Risk Factor Represents 3 Points: Age 75 years or older Other congenital or acquired thrombophilia - If yes, enter type in comment: No Thrombosis Risk Factor Assessment Total Risk Factor Score: 4 Thrombosis Risk Factor Assessment Level: Moderate Risk Assessment and Plan Assessment: Hyponatremia most likely secondary to diuretic hydrochlorothiazide Generalized weakness was slightly secondary to above. Improved Episodic dizziness, generalized weakness and epigastric discomfort. Rule out cardiac causes. Could be also secondary to hyponatremia History of Castano's esophagus and hiatal hernia hyponatremia dizziness lightheadedness, secondary to above History of hypertension Plan: this is a pleasant 81 years old female who presents with epigastric pain and hyponatremia Monitor sodium level Continue with IV fluid, patient informed and she agrees discontinue hydrochlorothiazide Cardiology consult Labs and medication were reviewed.. Continue same treatment. Continue with symptomatic treatment. Resume home medication. Monitor lytes and vitals. DVT and GI prophylaxis. Further recommendations as per clinical course of the patient DVT prophylaxis: Subcutaneous heparin GI Prophylaxis: Pepcid
[2022-02-19 10:22] LABS: Basophils % (A) 1 %; Eosinophils # (A) 0.1 k/uL (0-0.7); Eosinophils % (A) 1 %; HCT 39.7 % (34.0-46.0); HGB 13.2 gm/dL (11.4-16.0); Lymphocytes # (A) 0.9 k/uL (1.0-4.8); Lymphocytes % (A) 24 %; MCH 29.9 pg (25.0-35.0); MCHC 33.3 g/dL (31.0-37.0); MCV 89.6 fL (80.0-100.0); Mean Platelet Volume 7.3; Monocytes # (A) 0.4 k/uL (0-1.0); Monocytes % (A) 9 %; Neutrophils # (A) 2.5 k/uL (1.3-7.7); Neutrophils % (A) 62 %; Platelet Count 251 k/uL (150-450); RBC 4.43 m/uL (3.80-5.40); RDW 13.9 % (11.5-15.5); WBC 3.9 k/uL (3.8-10.6)
[2022-02-19 10:45] LABS: ALT 14 U/L (4-34); AST 21 U/L (14-36); African American GFR (CKD) >90 (>60 ml/min/1.73 sqM); Albumin 3.3 g/dL (3.5-5.0); Alkaline Phosphatase 89 U/L (38-126); Anion Gap 7 mmol/L; Bilirubin, Delta 0.1 mg/dL (0.0-0.2); Bilirubin,Unconjugated 0.3 mg/dL (0.0-1.1); Blood Urea Nitrogen 12 mg/dL (7-17); Calcium 8.6 mg/dL (8.4-10.2); Carbon Dioxide 24 mmol/L (22-30); Chloride 99 mmol/L (98-107); Glucose 60 mg/dL (74-99); Magnesium 1.8 mg/dL (1.6-2.3); Non-African American GFR(CKD) 86 (>60 ml/min/1.73 sqM); Sodium 130 mmol/L (137-145); Total Bilirubin 0.4 mg/dL (0.2-1.3); Total Protein 5.4 g/dL (6.3-8.2)
[2022-02-19 10:53] LABS: Appearance,Urine Clear (Clear); Bacteria,Urine Many /hpf; Bilirubin,Urine Negative (Negative); Blood,Urine Negative (Negative); Color,Urine Light Yellow; Glucose,Urine (UA) Negative (Negative); Ketones,Urine Negative (Negative); Leukocyte Esterase,Urine Small (Negative); Nitrite,Urine Negative (Negative); Protein,Urine Negative (Negative); RBC,Urine 2 /hpf (0-5); Specific Gravity,Urine 1.005 (1.001-1.035); Squamous Epithelial Cell,Urine <1 /hpf (0-4); Urobilinogen,Urine <2.0 mg/dL (<2.0); WBC,Urine 6 /hpf (0-5)
--- NOTE | 2022-02-19 12:21 | P.CRDCN ---
History of Present Illness History of present illness: HISTORY OF PRESENT ILLNESS: This is a 81-year-old female with a past medical history significant for hypertension. Patient states she is supposed to have an appointment with a senior accountant at [facility] but is unsure of who. We have been asked to see the patient in consultation for chest pain. Patient examined at the bedside. Patient states yesterday she was feeling very dizzy and disoriented. She felt like she was going to pass out. However she does not have an actual syncopal episode. She reports having some lower epigastric discomfort which she describes as a dull pain. She denies any chest pain this morning. She denies any shortness of breath. Patient's vital signs are stable. The patient reports she had a heart catheterization many years ago. 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 She states she was not found to have any significant coronary artery disease and did not require any stenting. * EKG reveals sinus mechanism with no signs of acute ischemia * Chest xray questionable minimal left basilar pulmonary atelectasis. * Laboratory data: WBC 3.9. Hemoglobin 13.2. Platelet count 251. Sodium 130. Potassium 4.0. BUN 12. Creatinine 0.63. Troponin negative 2 * Current home cardiac medications include Cardizem 300 mg at night, Imdur 60 g daily, hydralazine 100 mg twice a day * Most recent echocardiogram obtained in August 2021 revealed ejection fraction 55%, mild MR, mild TR REVIEW OF SYSTEMS: At the time of my exam: CONSTITUTIONAL: Denies fever or chills. HEENT: Denies blurred vision, vision changes, or eye pain. Denies hemoptysis CARDIOVASCULAR: Denies chest pain. Denies orthopnea. Denies PND. Denies palpitations RESPIRATORY: Denies shortness of breath. GASTROINTESTINAL: Denies abdominal pain. Denies nausea or vomiting. HEMATOLOGIC: Denies bleeding disorders. GENITOURINARY: Denies any blood in urine. SKIN: Denies pruitis. Denies rash. PHYSICAL EXAM: VITAL SIGNS: Reviewed. GENERAL: Well-developed in no acute distress. HEENT: Head is normocephalic. Pupils are equal, round. Sclerae anicteric. Mucous membranes of the mouth are moist. Neck supple. No JVD or thyromegaly LUNGS: Respirations even and unlabored. Lungs essentially clear to auscultation bilaterally. HEART: Regular rate and rhythm. S1 and S2 heard. ABDOMEN: Soft. Nondistended. Nontender. EXTREMITIES: Normal range of motion. No clubbing or cyanosis. Peripheral pulses intact. No lower extremity edema NEUROLOGIC: Awake and alert. Oriented x 3. ASSESSMENT: Generalized weakness and dizziness Hyponatremia Chest pain, atypical, troponin negative 2 Epigastric pain Hypertension PLAN: An acute coronary event has been ruled out Obtain 2-D echo to assess cardiac structure and function Continue home cardiac medications Recommend outpatient stress test Further recommendations pending patient's course Nurse practitioner note has been reviewed by physician. Signing provider agrees with the documented findings, assessment, and plan of care. Past Medical History Past Medical History: Chest Pain / Angina, Hypertension Additional Past Medical History / Comment(s): arthritis History of Any Multi-Drug Resistant Organisms: None Reported Past Surgical History: Back Surgery, Heart Catheterization, Hernia Repair, Orthopedic Surgery Additional Past Surgical History / Comment(s): Neck fusion. colon proloapse re constructions 04/2021. hiatal hernia repair x2 12/2020 Past Anesthesia/Blood Transfusion Reactions: No Reported Reaction Past Psychological History: No Psychological Hx Reported Smoking Status: Former smoker Past Alcohol Use History: None Reported Past Drug Use History: None Reported Medications and Allergies Home Medications Medication Instructions Recorded Confirmed Type Fosinopril Sodium [Monopril] 20 mg PO BID 03/20/21 02/18/22 History Isosorbide Mononitrate ER [Imdur] 60 mg PO DAILY 03/20/21 02/18/22 History Nitroglycerin Sl Tabs [Nitrostat] 0.4 mg SL Q5M PRN 03/20/21 02/18/22 History dilTIAZem HCL [Cardizem LA] 300 mg PO HS 03/20/21 02/18/22 History polyethylene glycoL 3350 [Miralax] 17 gm PO DAILY 06/24/21 02/18/22 History Vit C/E/Zn/Coppr/Lutein/Zeaxan 1 cap PO BID 09/17/21 02/18/22 History [Preservision Areds 2 Softgel] Acetaminophen Tab [Tylenol] 650 mg PO Q6HR PRN tab 09/21/21 02/18/22 Rx Ondansetron Odt [Zofran ODT] 4 mg PO BID PRN 10/20/21 02/18/22 History Pantoprazole [Protonix] 40 mg PO BID PRN 10/20/21 02/18/22 History Erythromycin Ophth Oint [Romycin 1 applic LEFT EYE BID 02/18/22 02/18/22 History Ophth Oint] hydrALAZINE HCL [Apresoline] 100 mg PO BID 02/18/22 02/18/22 History Allergies Allergy/AdvReac Type Severity Reaction Status Date / Time nitrofurantoin Allergy Nausea, Verified 02/18/22 21:02 [From Macrobid] itching Penicillins Allergy Anaphylaxis Verified 02/18/22 21:02 sulfamethoxazole Allergy Nausea, Verified 02/18/22 21:02 [From Bactrim] Itching trimethoprim [From Bactrim] Allergy Nausea, Verified 02/18/22 21:02 Itching aspirin AdvReac Abdominal Verified 02/18/22 21:02 Pain codeine AdvReac Confusion Verified 02/18/22 21:02 NSAIDS (Non-Steroidal AdvReac Abdominal Verified 02/18/22 21:02 Anti-Inflamma Pain Physical Exam Vitals: Vital Signs Temp Pulse Pulse Resp BP BP Pulse Ox 02/19/22 08:22 98.5 F 84 18 146/74 96 02/19/22 04:00 98.5 F 80 18 160/78 97 02/19/22 02:00 93 16 02/19/22 01:37 98.1 F 93 16 151/96 96 02/18/22 21:23 98 17 158/90 96 02/18/22 15:00 98 179/99 02/18/22 14:00 96 180/94 98 02/18/22 13:36 92 18 179/88 97 02/18/22 13:30 96 178/88 97 Intake and Output 02/18/22 02/19/22 02/19/22 22:59 06:59 14:59 Other: # Voids 1 Weight 72.121 kg Results 02/19/22 09:32 02/19/22 09:32 Cardiac Enzymes 02/18/22 02/18/22 Range/Units 15:34 15:34 AST 21 (14-36) U/L Troponin I <0.012 (0.000-0.034) ng/mL CBC 02/18/22 Range/Units 13:44 WBC 4.8 (3.8-10.6) k/uL RBC 4.57 (3.80-5.40) m/uL Hgb 13.8 (11.4-16.0) gm/dL Hct 40.6 (34.0-46.0) % Plt Count 274 (150-450) k/uL Comprehensive Metabolic Panel 02/18/22 Range/Units 15:34 Sodium 125 L (137-145) mmol/L Potassium 3.5 (3.5-5.1) mmol/L Chloride 94 L (98-107) mmol/L Carbon Dioxide 25 (22-30) mmol/L BUN 9 (7-17) mg/dL Creatinine 0.50 L (0.52-1.04) mg/dL Glucose 111 H (74-99) mg/dL Calcium 8.7 (8.4-10.2) mg/dL AST 21 (14-36) U/L ALT 14 (4-34) U/L Alkaline Phosphatase 95 (38-126) U/L Total Protein 5.9 L (6.3-8.2) g/dL Albumin 3.7 (3.5-5.0) g/dL Current Medications Generic Name Dose Route Start Last Admin Trade Name Freq PRN Reason Stop Dose Admin Acetaminophen 650 mg 02/18/22 20:08 Acetaminophen Tab 325 Mg Tab PO Q6HR PRN Mild Pain or Fever > 100.5 Aspirin 81 mg 02/19/22 09:00 02/19/22 08:27 Aspirin 81 Mg PO 81 mg DAILY GREGORIA Administration Benzonatate 100 mg 02/18/22 20:10 Benzonatate 100 Mg Cap PO TID PRN Cough Citalopram Hydrobromide 20 mg 02/19/22 09:00 02/19/22 08:27 Citalopram Hydrobromide 20 Mg Tab PO Not Given DAILY GREGORIA Diltiazem HCl 300 mg 02/19/22 09:00 02/19/22 08:25 Diltiazem Cd 300 Mg Cap.Er.24h PO 300 mg DAILY GREGORIA Administration Famotidine 20 mg 02/19/22 09:00 02/19/22 08:27 Famotidine 20 Mg Tab PO 20 mg DAILY GREGORIA Administration Hydralazine HCl 25 mg 02/18/22 22:00 02/19/22 08:27 Hydralazine Hcl 25 Mg Tab PO 25 mg TID GREGORIA Administration Sodium Chloride 1,000 mls @ 100 mls/hr 02/18/22 20:15 02/19/22 06:37 Saline 0.9% IV 100 mls/hr .Q10H GREGORIA Administration Isosorbide Mononitrate 60 mg 02/19/22 09:00 02/19/22 08:25 Isosorbide Mononitrate Er 60 Mg Tab.Er.24h PO 60 mg DAILY GREGORIA Administration Lisinopril 20 mg 02/18/22 21:00 02/19/22 08:27 Lisinopril 20 Mg Tab PO 20 mg BID GREGORIA Administration Multivitamins 1 each 02/18/22 21:00 02/19/22 08:27 Multivitamins, Thera 1 Each Tab PO 1 each BID GREGORIA Administration Multivitamins/Minerals 1 each 02/18/22 21:00 02/19/22 08:24 Vit A,C & J-Ehhqjz-Mraakxhp 1 Each Tab PO 1 each BID GREGORIA Administration Naloxone HCl 0.2 mg 02/18/22 20:08 Naloxone 0.4 Mg/Ml 1 Ml Vial IV Q2M PRN Opioid Reversal Nitroglycerin 0.4 mg 02/18/22 20:10 Nitroglycerin Sl Tabs 0.4 Mg Tab SUBLINGUAL Q5M PRN Chest Pain Ondansetron HCl 4 mg 02/18/22 20:10 Ondansetron Odt 4 Mg Tab PO BID PRN Nausea Pantoprazole Sodium 40 mg 02/18/22 21:00 02/19/22 06:37 Pantoprazole 40 Mg Tablet PO 40 mg AC-BID GREGORIA Administration Polyethylene Glycol 17 gm 02/18/22 20:10 Polyethylene Glycol 3350 17 Gm Powd.Pack PO BID PRN Constipation Simethicone 120 mg 02/18/22 20:10 Simethicone 80 Mg Chewable PO TID PRN GI Upset Intake and Output 02/18/22 02/19/22 02/19/22 22:59 06:59 14:59 Other: # Voids 1 Weight 72.121 kg 02/18/22 13:44 02/18/22 15:34
[2022-02-19] MEDS: ERYTHROMYCIN 5 MG/GM OPHTH OINT 3.5 GM TUBE LEFT EYE SCH ×2 (14:42→20:55)
[2022-02-20] MEDS: SODIUM CHLORIDE 0.9% 1,000 ML IV SCH (05:49)
[2022-02-20] MEDS: PANTOPRAZOLE 40 MG TABLET PO SCH (06:36)
[2022-02-20 08:31] LABS: African American GFR (CKD) >90 (>60 ml/min/1.73 sqM); Anion Gap 8 mmol/L; Blood Urea Nitrogen 12 mg/dL (7-17); Calcium 8.8 mg/dL (8.4-10.2); Carbon Dioxide 22 mmol/L (22-30); Chloride 103 mmol/L (98-107); Glucose 135 mg/dL (74-99); Magnesium 1.9 mg/dL (1.6-2.3); Non-African American GFR(CKD) >90 (>60 ml/min/1.73 sqM); Potassium 3.6 mmol/L (3.5-5.1); Sodium 133 mmol/L (137-145)
[2022-02-20 08:50] VITALS: RESP 18; TEMP 97.7
[2022-02-20] MEDS: FAMOTIDINE 20 MG TAB PO SCH (08:58)
[2022-02-20] MEDS: lisinopriL 20 MG TAB PO SCH (08:59)
[2022-02-20] MEDS: DILTIAZEM CD 300 MG CAP.ER.24H PO SCH (08:59)
[2022-02-20] MEDS: ASPIRIN 81 MG PO SCH (08:59)
[2022-02-20] MEDS: ISOSORBIDE MONONITRATE ER 60 MG TAB.ER.24H PO SCH (08:59)
[2022-02-20] MEDS: hydrALAZINE HCL 25 MG TAB PO SCH (08:59)
[2022-02-20] MEDS: CITALOPRAM HYDROBROMIDE 20 MG TAB PO SCH (09:00)
[2022-02-20] MEDS: MULTIVITAMINS, THERA 1 EACH TAB PO SCH (09:00)
[2022-02-20] MEDS: VIT A,C & E-LUTEIN-MINERALS 1 EACH TAB PO SCH (09:00)
[2022-02-20] MEDS: ERYTHROMYCIN 5 MG/GM OPHTH OINT 3.5 GM TUBE LEFT EYE SCH (09:00)
--- NOTE | 2022-02-20 10:37 | CA ---
Transthoracic Echo Report Name: Tamara Rodríguez Age: 81 Gender: F : 1940 Exam Date: 02/19/2022 10:44 Exam Location: [facility] Ht (in): 64 Wt (lb): 159 Ordering Physician: Nelda Perez Attending/Referring Phys: Technology Program Manager Berna Mosqueda, MICAELA Procedure CPT: Indications: Lv function, epigastric pain Cardiac Hx: Technical Quality: Fair Contrast 1: Total Dose (mL): Contrast 2: Total Dose (mL): MEASUREMENTS (Male / Female) Normal Values 2D ECHO LV Diastolic Diameter PLAX 4.7 cm 4.2 - 5.9 / 3.9 - 5.3 cm LV Systolic Diameter PLAX 3.2 cm IVS Diastolic Thickness 1.2 cm 0.6 - 1.0 / 0.6 - 0.9 cm LVPW Diastolic Thickness 1.4 cm 0.6 - 1.0 / 0.6 - 0.9 cm LV Relative Wall Thickness 0.6 LA Systolic Diameter LX 4.3 cm 3.0 - 4.0 / 2.7 - 3.8 cm LA Volume 85.0 cm??? 18 - 58 / 22 - 52 cm??? M-MODE Aortic Root Diameter MM 3.8 cm LA Systolic Diameter MM 4.3 cm LA Ao Ratio MM 1.1 MV E Point Septal Separation 0.8 cm AV Cusp Separation MM 1.9 cm DOPPLER MV Area PHT 3.0 cm??? Mitral E Point Velocity 68.6 cm/s Mitral A Point Velocity 126.3 cm/s Mitral E to A Ratio 0.5 MV Deceleration Time 256.3 ms MV E' Velocity 4.7 cm/s Mitral E to MV E' Ratio 14.5 FINDINGS Left Ventricle Normal left ventricular size, wall thickness, systolic function with no obvious regional wall motion abnormalities. Left ventricular ejection fraction is estimated at 50-55 %. Right Ventricle The right ventricle is normal in size and function. Right Atrium The right atrium is normal in size. Left Atrium The left atrium is normal in size. Mitral Valve Structurally normal mitral valve. There is mild mitral regurgitation. Aortic Valve Structurally normal aortic valve with sclerosis. There is no aortic regurgitation. Tricuspid Valve Structurally normal tricuspid valve without significant stenosis. Pulmonary artery systolic pressure is normal. Pulmonic Valve Structurally normal pulmonic valve without significant stenosis. There is no pulmonic regurgitation. Pericardium Normal pericardium without effusion. Aorta Normal aortic root dimension. CONCLUSIONS 1. Normal left ventricular size and function. #2. Normal valvular function Previewed by: Dr. Rickey Kenny MD (Electronically Signed) Final Date: 20 February 2022 10:36
[2022-02-20 12:04] VITALS: BP 135/74; PULSE 79
--- NOTE | 2022-02-20 15:20 | P.PN ---
Subjective Progress Note Date: 02/20/22 his is a 81-year-old female with a past medical history significant for hypertension. Patient states she is supposed to have an appointment with a printing grey cloth tender at [facility] but is unsure of who. We have been asked to see the patient in consultation for chest pain. Patient examined at the bedside. Patient states yesterday she was feeling very dizzy and disoriented. She felt like she was going to pass out. However she does not have an actual syncopal episode. She reports having some lower epigastric discomfort which she describes as a dull pain. She denies any chest pain this morning. She denies any shortness of breath. Patient's vital signs are stable. The patient reports she had a heart catheterization many years ago. 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 She states she was not found to have any significant coronary artery disease and did not require any stenting. * EKG reveals sinus mechanism with no signs of acute ischemia * Chest xray questionable minimal left basilar pulmonary atelectasis. * Laboratory data: WBC 3.9. Hemoglobin 13.2. Platelet count 251. Sodium 130. Potassium 4.0. BUN 12. Creatinine 0.63. Troponin negative 2 * Current home cardiac medications include Cardizem 300 mg at night, Imdur 60 g daily, hydralazine 100 mg twice a day * Most recent echocardiogram obtained in August 2021 revealed ejection fraction 55%, mild MR, mild TR. 02/20/2022: This patient seemed to feeling slightly better. Still having some excessive gas-like discomfort and she thinks it's related to her had a hernia surgery. Echo cardiogram showed normal LV function. Lungs are clear. Heart is regular. No JVD. Overall patient condition seems to be stable. Could be discharged home for outpatient evaluation with stress test Objective - Vital Signs Vital signs: Vital Signs Temp 97.7 F 02/20/22 08:48 Pulse 79 02/20/22 14:00 Resp 18 02/20/22 14:00 BP 135/74 02/20/22 12:03 Pulse Ox 98 02/20/22 12:03 FiO2 Intake & Output 02/19/22 02/20/22 02/20/22 18:59 06:59 18:59 Intake Total 630 720 120 Balance 630 720 120 Intake: Intake, IV Titration 150 600 Amount Sodium Chloride 0.9% 1, 600 000 ml @ 100 mls/hr IV . Q10H GREGORIA Rx#:[id number] Sodium Chloride 0.9% 1, 150 000 ml @ 75 mls/hr IV . [id number] STA Rx#:[id number] Oral 480 120 120 Other: Voiding Method Toilet # Voids 2 1 - Exam GENERAL EXAM: Patient is alert and oriented and doesn't appear to be in any acute distress HEENT: Normocephalic. Normal reaction of pupils, equal size, normal range of extraocular motion. No erythema or exudates in the throat. NECK: No masses, no nuchal rigidity. CHEST: No chest wall deformity. LUNGS: Equal air entry with no crackles or wheeze. HEART: S1 and S2 normal with no audible mumurs or gallops. Regular rhythm, femorals equal on both sides.. ABDOMEN: No hepatosplenomegaly, normal bowel sounds, no guarding or rigidity. SKIN: No rashes CENTRAL NERVOUS SYSTEM: No focal deficits. EXTREMITIES: No cyanosis, clubbing or edema. - Labs CBC & Chem 7: 02/19/22 09:32 02/20/22 07:33 Labs: Abnormal Lab Results - Last 24 Hours (Table) 02/20/22 Range/Units 07:33 Sodium 133 L (137-145) mmol/L Glucose 135 H (74-99) mg/dL Assessment and Plan (1) Generalized weakness Current Visit: Yes Status: Acute Code(s): R53.1 - WEAKNESS SNOMED Code(s): 79146403 (2) Chest pain Current Visit: No Status: Acute Code(s): R07.9 - CHEST PAIN, UNSPECIFIED SNOMED Code(s): 66876653 (3) Hypertension Current Visit: No Status: Acute Code(s): I10 - ESSENTIAL (PRIMARY) HYPERTENSION SNOMED Code(s): 52228824 Plan: Seemed to be clinically stable. Echo showed normal LV function. Enzymes are negative. Being discharged home to have further evaluation as an outpatient
--- NOTE | 2022-02-21 00:19 | P.DS ---
Providers Date of admission: 02/18/22 20:08 Attending physician: Lv Corral Consults: 02/19/22 09:21 Consult Physician Urgent Consulting Provider: Gagan Sutherland Consult Reason/Comments: epigastric pain , episodic Do you want consulting provider notified?: Yes Primary care physician: Kirstie Alonso Hospital Course: Diagnoses: Hyponatremia most likely secondary to diuretic hydrochlorothiazide and water-dri nking habits Generalized weakness was mild and secondary to above. Improved Episodic dizziness, generalized weakness and epigastric discomfort. Cardiac causes were ruled out. Could be also secondary to hyponatremia . Stress test as an outpatient is recommended History of Castano's esophagus hiatal hernia dizziness lightheadedness, secondary to above , resolved History of hypertension Hospital course: This is a pleasant 81 his old female with past medical history of hypertension Patient presents because of episodes of epigastric discomfort and dizziness. These symptoms were recurrent as she had a few weeks ago. Patient was found to have low sodium at 125, she admits to taking hydrochlorothiazide although not every day and admits to drinking a lot of water to help her with bowel regimen, hydrochlorothiazide was stopped and patient was instructed to cut down on her fluid consumption, she verbalized understanding and acceptance, her sodium improved to 133, patient became asymptomatic and she is back to her baseline, patient was eager to be discharged home today. Also patient has been eroded by grievance manager for her epigastric pain and recommended outpatient stress test. On the day of discharge she denies chest pain dyspnea, no change in urine or bowel habits. No fever. Patient was cleared for discharge by grievance manager. Problems and management plan were discussed with the patient and he verbalized understanding and acceptance Patient was found stable and can be discharged home however he needs follow-up as an outpatient. Patient was instructed to follow up with PCP Dr. chauhan within one week and patient agrees Also patient was instructed to follow up with grievance manager Dr. Sutherland in one week and she agrees Patient will be discharged on aspirin, risks and benefits are explained including but not limited to risk of bleeding like brain or GI bleed and she verbalized understanding and acceptance, she will follow up with grievance manager for further recommendation Physical exam Gen: patient is a AAOx3, no distress CVS: S1-S2, RRR, no murmur Lungs: B/L CTA, no wheezing Abdomen: soft, no distention, no tenderness, positive bowel sounds Extremity: no leg edema or induration Time spent more than 35 minutes Patient Condition at Discharge: Fair Plan - Discharge Summary Discharge Rx Participant: Yes New Discharge Prescriptions: New Aspirin 81 mg PO DAILY #15 tab Continue Isosorbide Mononitrate ER [Imdur] 60 mg PO DAILY Fosinopril Sodium [Monopril] 20 mg PO BID dilTIAZem HCL [Cardizem LA] 300 mg PO HS Vit C/E/Zn/Coppr/Lutein/Zeaxan [Preservision Areds 2 Softgel] 1 cap PO BID Acetaminophen Tab [Tylenol] 650 mg PO Q6HR PRN tab PRN Reason: Fever And/ Or Pain Pantoprazole [Protonix] 40 mg PO BID PRN PRN Reason: gerds Erythromycin Ophth Oint [Romycin Ophth Oint] 1 applic LEFT EYE BID hydrALAZINE HCL [Apresoline] 100 mg PO BID Nitroglycerin Sl Tabs [Nitrostat] 0.4 mg SL Q5M PRN PRN Reason: Chest Pain polyethylene glycoL 3350 [Miralax] 17 gm PO DAILY Ondansetron Odt [Zofran ODT] 4 mg PO BID PRN PRN Reason: Nausea Discontinued hydroCHLOROthiazide [Hydrodiuril] 12.5 mg PO DAILY Discharge Medication List Fosinopril Sodium [Monopril] 20 mg PO BID 03/20/21 [History] Isosorbide Mononitrate ER [Imdur] 60 mg PO DAILY 03/20/21 [History] Nitroglycerin Sl Tabs [Nitrostat] 0.4 mg SL Q5M PRN 03/20/21 [History] dilTIAZem HCL [Cardizem LA] 300 mg PO HS 03/20/21 [History] polyethylene glycoL 3350 [Miralax] 17 gm PO DAILY 06/24/21 [History] Vit C/E/Zn/Coppr/Lutein/Zeaxan [Preservision Areds 2 Softgel] 1 cap PO BID 09/17/21 [History] Acetaminophen Tab [Tylenol] 650 mg PO Q6HR PRN tab 09/21/21 [Rx] Ondansetron Odt [Zofran ODT] 4 mg PO BID PRN 10/20/21 [History] Pantoprazole [Protonix] 40 mg PO BID PRN 10/20/21 [History] Erythromycin Ophth Oint [Romycin Ophth Oint] 1 applic LEFT EYE BID 02/18/22 [History] hydrALAZINE HCL [Apresoline] 100 mg PO BID 02/18/22 [History] Aspirin 81 mg PO DAILY #15 tab 02/20/22 [Rx] Follow up Appointment(s)/Referral(s): Gagan Sutherland MD [STAFF PHYSICIAN] - 1 Week (We recommend outpatient stress test) Kirstie Alonso MD [Primary Care Provider] - 1-2 days (We recommend to check her sodium level with her doctor) Patient Instructions/Handouts: Dehydration (DC), Hyponatremia (DC) Activity/Diet/Wound Care/Special Instructions: Heart healthy diet, recommend fluid restriction to 1500 mL per day Activity is restricted till you see your doctor Continue hydrochlorothiazide Discharge Disposition: HOME SELF-CARE
== END 2022-02-20 17:03 | disposition home or self-care (01) | DRG 641 ==
LOC: EC 13:19 → 3SCARD 20:08
PROVIDERS: ADMIT Hospitalist; ATTEND Hospitalist
DX: E87.1 Hypo-osmolality and hyponatremia (principal); I10 Essential (primary) hypertension; I08.1 Rheumatic disorders of both mitral and tricuspid valves; T50.2X5A Adverse effect of carbonic-anhydrase inhibitors, benzothiadiazides and other diuretics, initial encounter; K44.9 Diaphragmatic hernia without obstruction or gangrene; E86.0 Dehydration; K22.70 Barrett's esophagus without dysplasia; M19.90 Unspecified osteoarthritis, unspecified site; K29.70 Gastritis, unspecified, without bleeding; R07.89 Other chest pain; R63.8 Other symptoms and signs concerning food and fluid intake; Z88.1 Allergy status to other antibiotic agents; Z88.0 Allergy status to penicillin; Z88.2 Allergy status to sulfonamides; Z88.5 Allergy status to narcotic agent; Z88.6 Allergy status to analgesic agent; Z79.82 Long term (current) use of aspirin; Z79.899 Other long term (current) drug therapy; Z87.891 Personal history of nicotine dependence; Z98.1 Arthrodesis status; Z98.890 Other specified postprocedural states; Z87.19 Personal history of other diseases of the digestive system; Z90.49 Acquired absence of other specified parts of digestive tract
CPT/HCPCS: 36415; 71046; 74018; 80048; 80053; 80076; 81001; 82550; 83605; 83690; 83735; 84145; 84484; 85025; 93005; 93306; 96360; 96361; 99285

== ENCOUNTER → 2022-04-14 | Outpatient (CLI) | payer MEDICARE ==
--- NOTE | 2022-04-14 12:27 | FL ---
EXAMINATION: Upper GI examination DATE: 04/14/2022 CLINICAL INDICATION: 81-year-old female R11.0, nausea. Patient with history of 2 prior hiatal hernia surgeries, complains of reflux and nausea. COMPARISON: None Total Fluoroscopy Time: 3 minutes 20 seconds 88 images obtained. FINDINGS: There is moderate hypertrophy of the cricopharyngeus. Some anterior endplate spondylosis causes mild impressions onto the back wall of the cervical esophagus. There is previous fusion at C1-C2 posterior ly. Otherwise, swallowing mechanism appears maintained and the hypopharyngeal anatomy is preserved. Thoracic esophagus shows normal course and caliber. Mild tertiary peristaltic waves are noted. No abn ormal filling defect or mucosal lesion is seen. There is a small fixed hiatal hernia and suspected Penelope fundoplication that remains below the diaph ragm. Recurrent episodes of severe gastroesophageal reflux are encountered when the patient is supine with turning maneuvers. The patient was unable to hold the air for adequate air contrast assessment of the stomach. Some pers istent annular narrowing at the mid body and antrum may be due to nondistention. The duodenal sweep shows no gross abnormality. IMPRESSION: 1. Findings suspected to represent a fixed, small hiatal hernia extending above a Penelope wrap. 2. Recurrent episodes of severe gastroesophageal reflux. 3. Limited double contrast assessment of the stomach as the patient could not retain the air. There i s annular narrowing at the mid body and also at the antrum that could represent spasm or persistent p eristaltic contraction. Direct visualization as clinically indicated.
== END | disposition home or self-care (01) ==
LOC: RADUSWWP 10:03
PROVIDERS: ATTEND Surgery
DX: R11.0 Nausea (principal)
CPT/HCPCS: 74246

== ENCOUNTER → 2022-05-19 | Outpatient (CLI) | payer MEDICARE ==
--- NOTE | 2022-05-19 12:52 | NM ---
EXAMINATION TYPE: NM gastric emptying static DATE OF EXAM: 05/19/2022 COMPARISON: NONE HISTORY: Postprandial epigastric pain Following administration of 1.9 mCi Tc 99m Sulfur Colloid with 4 ounces egg beaters, 1 & 1/2 pieces o f toast with butter and jelly, 4-6 ounces of water, projection images of the abdomen were obtained 15 minutes post ingestion. Patient Emptying Values 1 Hour 57 % 2 Hours 91 % 3 Hours 97 % 4 Hours 99 % Gastroesophagel reflux: None IMPRESSION: Gastric emptying: Normal gastric emptying Gastroesophageal reflux: Not visualized during the exam Gastric emptying normal percentage values: 30 minutes: <70% of retention (> 30% emptying) suggests abnormally fast emptying. 60 minutes: <90% retention (>10% emptying) is normal; less than 30% retention (>70% emptying) suggest s abnormally rapid emptying. 90 minutes: <65% retention (> 35% emptying) is normal. 120 minutes: <60% retention (> 40% emptying) is normal. 180 minutes: <30% retention (> 70% emptying) is normal. Gastric emptying T-1/2: Solid: The normal range is 60-105 minutes Liquid only: Normal range is 10-45 minutes. Liquid only-children: At 60 minutes, normal range is 44-58 % . Liquid only-infants: At 60 minutes, normal range is 32-64 %. Additional references: Gastric Emptying Scintigraphy [email or web address]://[email or web address]
== END | disposition home or self-care (01) ==
LOC: RADNMMAIN 06:52
PROVIDERS: ATTEND Surgery
DX: K21.9 Gastro-esophageal reflux disease without esophagitis (principal)
CPT/HCPCS: 78264; A9541

== ENCOUNTER 2022-06-06 21:45 | Emergency (ER) | payer MEDICARE ==
[2022-06-06 22:25] VITALS: BP 156/87; PULSE 78; RESP 16; TEMP 98.1
[2022-06-06] MEDS ORDERED: SODIUM CHLORIDE 0.9% 1,000 ML IV STA (22:26)
[2022-06-06] MEDS ORDERED: SODIUM CHLORIDE 0.9% 500 ML 500 ML IV STA (22:26)
[2022-06-06] MEDS ORDERED: MORPHINE SULFATE 4 MG/ML SYRINGE IV STA (22:26)
--- NOTE | 2022-06-06 22:27 | ED ---
Headache HPI - General Chief Complaint: Headache Stated Complaint: Hypertension Time Seen by Provider: 06/06/22 22:04 Source: RN notes reviewed, old records reviewed Mode of arrival: EMS Limitations: no limitations - History of Present Illness Initial Comments: This is a 81-year-old female to the emergency department for evaluation patient presents today for evaluation regards to headache. Elevated blood pressure. Nausea belly pain vomiting not feeling well. Numbness and tingling of both legs. MD Complaint: headache, other (Elevated blood pressure) -: hour(s) Onset Description: gradual Location: right, left Severity: moderate Severity scale (1-10): 6 Quality: constant Consistency: constant Improves With: nothing Worsens With: exertion/activity Associated Symptoms: nausea, vomiting Other Symptoms: other (0) Treatments Prior to Arrival: Acetaminophen - Related Data Home Medications Medication Instructions Recorded Confirmed Fosinopril Sodium [Monopril] 20 mg PO BID 03/20/21 02/18/22 Isosorbide Mononitrate ER [Imdur] 60 mg PO DAILY 03/20/21 02/18/22 Nitroglycerin Sl Tabs [Nitrostat] 0.4 mg SL Q5M PRN 03/20/21 02/18/22 dilTIAZem HCL [Cardizem LA] 300 mg PO HS 03/20/21 02/18/22 polyethylene glycoL 3350 [Miralax] 17 gm PO DAILY 06/24/21 02/18/22 Vit C/E/Zn/Coppr/Lutein/Zeaxan 1 cap PO BID 09/17/21 02/18/22 [Preservision Areds 2 Softgel] Ondansetron Odt [Zofran ODT] 4 mg PO BID PRN 10/20/21 02/18/22 Pantoprazole [Protonix] 40 mg PO BID PRN 10/20/21 02/18/22 Erythromycin Ophth Oint [Romycin 1 applic LEFT EYE BID 02/18/22 02/18/22 Ophth Oint] hydrALAZINE HCL [Apresoline] 100 mg PO BID 02/18/22 02/18/22 Previous Rx's Medication Instructions Recorded Acetaminophen Tab [Tylenol] 650 mg PO Q6HR PRN tab 09/21/21 Aspirin 81 mg PO DAILY #15 tab 02/20/22 Allergies Allergy/AdvReac Type Severity Reaction Status Date / Time nitrofurantoin Allergy Nausea, Verified 02/18/22 21:02 [From Macrobid] itching Penicillins Allergy Anaphylaxis Verified 02/18/22 21:02 sulfamethoxazole Allergy Nausea, Verified 02/18/22 21:02 [From Bactrim] Itching trimethoprim [From Bactrim] Allergy Nausea, Verified 02/18/22 21:02 Itching aspirin AdvReac Abdominal Verified 02/18/22 21:02 Pain codeine AdvReac Confusion Verified 02/18/22 21:02 NSAIDS (Non-Steroidal AdvReac Abdominal Verified 02/18/22 21:02 Anti-Inflamma Pain Review of Systems ROS Statement: Those systems with pertinent positive or pertinent negative responses have been documented in the HPI. ROS Other: All systems not noted in ROS Statement are negative. Past Medical History Past Medical History: Chest Pain / Angina, Hypertension Additional Past Medical History / Comment(s): arthritis History of Any Multi-Drug Resistant Organisms: None Reported Past Surgical History: Back Surgery, Heart Catheterization, Hernia Repair, Orthopedic Surgery Additional Past Surgical History / Comment(s): Neck fusion. colon proloapse reconstructions 04/2021. hiatal hernia repair x2 12/2020 Past Anesthesia/Blood Transfusion Reactions: No Reported Reaction Past Psychological History: No Psychological Hx Reported Smoking Status: Former smoker Past Alcohol Use History: None Reported Past Drug Use History: None Reported General Exam Limitations: no limitations General appearance: alert, in no apparent distress Head exam: Present: atraumatic, normocephalic, normal inspection Eye exam: Present: normal appearance, PERRL, EOMI. Absent: scleral icterus, conjunctival injection, periorbital swelling ENT exam: Present: normal exam, mucous membranes moist Neck exam: Present: normal inspection. Absent: tenderness, meningismus, lymphadenopathy Respiratory exam: Present: normal lung sounds bilaterally. Absent: respiratory distress, wheezes, rales, rhonchi, stridor Cardiovascular Exam: Present: regular rate, normal rhythm, normal heart sounds. Absent: systolic murmur, diastolic murmur, rubs, gallop, clicks GI/Abdominal exam: Present: soft, normal bowel sounds. Absent: distended, tenderness, guarding, rebound, rigid Extremities exam: Present: normal inspection, full ROM, normal capillary refill. Absent: tenderness, pedal edema, joint swelling, calf tenderness Back exam: Present: normal inspection Neurological exam: Present: alert, oriented X3, CN II-XII intact Psychiatric exam: Present: normal affect, normal mood Skin exam: Present: warm, dry, intact, normal color. Absent: rash Course Vital Signs 06/06/22 22:09 Temperature 98.1 F Pulse Rate 78 Respiratory 16 Rate Blood Pressure 156/87 O2 Sat by Pulse 98 Oximetry - Reevaluation(s) Reevaluation #1: 06/06/22 23:03 Medical record is reviewed Reevaluation #2: 06/07/22 00:26 Patient informed results and questions answered Reevaluation #3: 06/07/22 00:26 Patient feels improved a little concerned about cause of symptoms Medical Decision Making - Medical Decision Making 81 female to the emergency department for evaluation multiple complaints headaches lightheadedness feeling uneasy. Patient has normal findings here in the ER can be discharged home - Lab Data Result diagrams: 06/06/22 22:25 06/06/22 22:25 Lab Results 06/06/22 06/06/22 06/06/22 Range/Units 22:25 22:25 22:25 WBC 4.0 (3.8-10.6) k/uL RBC 3.85 (3.80-5.40) m/uL Hgb 12.0 (11.4-16.0) gm/dL Hct 33.8 L (34.0-46.0) % MCV 87.8 (80.0-100.0) fL MCH 31.2 (25.0-35.0) pg MCHC 35.6 (31.0-37.0) g/dL RDW 13.2 (11.5-15.5) % Plt Count 219 (150-450) k/uL MPV 7.5 Neutrophils % 61 % Lymphocytes % 28 % Monocytes % 7 % Eosinophils % 1 % Basophils % 0 % Neutrophils # 2.5 (1.3-7.7) k/uL Lymphocytes # 1.1 (1.0-4.8) k/uL Monocytes # 0.3 (0-1.0) k/uL Eosinophils # 0.1 (0-0.7) k/uL Basophils # 0.0 (0-0.2) k/uL Sodium 127 L (137-145) mmol/L Potassium 3.7 (3.5-5.1) mmol/L Chloride 96 L (98-107) mmol/L Carbon Dioxide 22 (22-30) mmol/L Anion Gap 9 mmol/L BUN 10 (7-17) mg/dL Creatinine 0.48 L (0.52-1.04) mg/dL Est GFR (CKD-EPI)AfAm >90 (>60 ml/min/1.73 sqM) Est GFR (CKD-EPI)NonAf >90 (>60 ml/min/1.73 sqM) Glucose 102 H (74-99) mg/dL Calcium 8.7 (8.4-10.2) mg/dL Phosphorus 3.3 (2.5-4.5) mg/dL Magnesium 1.9 (1.6-2.3) mg/dL Total Bilirubin 0.5 (0.2-1.3) mg/dL AST 22 (14-36) U/L ALT 16 (4-34) U/L Alkaline Phosphatase 107 (38-126) U/L Troponin I <0.012 (0.000-0.034) ng/mL NT-Pro-B Natriuret Pep pg/mL Total Protein 5.4 L (6.3-8.2) g/dL Albumin 3.5 (3.5-5.0) g/dL Urine Color Urine Appearance (Clear) Urine pH (5.0-8.0) Ur Specific [place] (1.001-1.035) Urine Protein (Negative) Urine Glucose (UA) (Negative) Urine Ketones (Negative) Urine Blood (Negative) Urine Nitrite (Negative) Urine Bilirubin (Negative) Urine Urobilinogen (<2.0) mg/dL Ur Leukocyte Esterase (Negative) 06/06/22 06/06/22 Range/Units 22:25 23:12 WBC (3.8-10.6) k/uL RBC (3.80-5.40) m/uL Hgb (11.4-16.0) gm/dL Hct (34.0-46.0) % MCV (80.0-100.0) fL MCH (25.0-35.0) pg MCHC (31.0-37.0) g/dL RDW (11.5-15.5) % Plt Count (150-450) k/uL MPV Neutrophils % % Lymphocytes % % Monocytes % % Eosinophils % % Basophils % % Neutrophils # (1.3-7.7) k/uL Lymphocytes # (1.0-4.8) k/uL Monocytes # (0-1.0) k/uL Eosinophils # (0-0.7) k/uL Basophils # (0-0.2) k/uL Sodium (137-145) mmol/L Potassium (3.5-5.1) mmol/L Chloride (98-107) mmol/L Carbon Dioxide (22-30) mmol/L Anion Gap mmol/L BUN (7-17) mg/dL Creatinine (0.52-1.04) mg/dL Est GFR (CKD-EPI)AfAm (>60 ml/min/1.73 sqM) Est GFR (CKD-EPI)NonAf (>60 ml/min/1.73 sqM) Glucose (74-99) mg/dL Calcium (8.4-10.2) mg/dL Phosphorus (2.5-4.5) mg/dL Magnesium (1.6-2.3) mg/dL Total Bilirubin (0.2-1.3) mg/dL AST (14-36) U/L ALT (4-34) U/L Alkaline Phosphatase (38-126) U/L Troponin I (0.000-0.034) ng/mL NT-Pro-B Natriuret Pep 263 pg/mL Total Protein (6.3-8.2) g/dL Albumin (3.5-5.0) g/dL Urine Color Colorless Urine Appearance Clear (Clear) Urine pH 7.0 (5.0-8.0) Ur Specific [place] 1.004 (1.001-1.035) Urine Protein Negative (Negative) Urine Glucose (UA) Negative (Negative) Urine Ketones Negative (Negative) Urine Blood Negative (Negative) Urine Nitrite Negative (Negative) Urine Bilirubin Negative (Negative) Urine Urobilinogen <2.0 (<2.0) mg/dL Ur Leukocyte Esterase Negative (Negative) - EKG Data -: EKG Interpreted by Me (EKG is sinus 77 RI 183 QRS 84 QTc 40 to) - Radiology Data Radiology results: report reviewed (CT brain chest and abdominal x-ray are negative for acute disease), image reviewed Disposition Clinical Impression: Generalized weakness, Dehydration, Headache Disposition: HOME SELF-CARE Condition: Good Instructions (If sedation given, give patient instructions): Acute Headache (ED) Is patient prescribed a controlled substance at d/c from ED?: No Referrals: Kirstie Alonso MD [Primary Care Provider] - 1-2 days Time of Disposition: 00:30
[2022-06-06 22:49] LABS: Basophils % (A) 0 %; Eosinophils # (A) 0.1 k/uL (0-0.7); Eosinophils % (A) 1 %; HCT 33.8 % (34.0-46.0); Lymphocytes # (A) 1.1 k/uL (1.0-4.8); Lymphocytes % (A) 28 %; MCH 31.2 pg (25.0-35.0); MCHC 35.6 g/dL (31.0-37.0); MCV 87.8 fL (80.0-100.0); Mean Platelet Volume 7.5; Monocytes # (A) 0.3 k/uL (0-1.0); Monocytes % (A) 7 %; Neutrophils # (A) 2.5 k/uL (1.3-7.7); Neutrophils % (A) 61 %; Platelet Count 219 k/uL (150-450); RBC 3.85 m/uL (3.80-5.40); RDW 13.2 % (11.5-15.5)
[2022-06-06 22:59] LABS: ALT 16 U/L (4-34); AST 22 U/L (14-36); African American GFR (CKD) >90 (>60 ml/min/1.73 sqM); Albumin 3.5 g/dL (3.5-5.0); Alkaline Phosphatase 107 U/L (38-126); Anion Gap 9 mmol/L; Blood Urea Nitrogen 10 mg/dL (7-17); Calcium 8.7 mg/dL (8.4-10.2); Carbon Dioxide 22 mmol/L (22-30); Chloride 96 mmol/L (98-107); Glucose 102 mg/dL (74-99); Magnesium 1.9 mg/dL (1.6-2.3); Non-African American GFR(CKD) >90 (>60 ml/min/1.73 sqM); Phosphorus 3.3 mg/dL (2.5-4.5); Potassium 3.7 mmol/L (3.5-5.1); Sodium 127 mmol/L (137-145); Total Bilirubin 0.5 mg/dL (0.2-1.3); Total Protein 5.4 g/dL (6.3-8.2)
[2022-06-06] MEDS ORDERED: METOCLOPRAMIDE 5 MG/ML 2 ML VIAL IVP STA (23:04)
[2022-06-06 23:24] LABS: Appearance,Urine Clear (Clear); Bilirubin,Urine Negative (Negative); Blood,Urine Negative (Negative); Color,Urine Colorless; Glucose,Urine (UA) Negative (Negative); Ketones,Urine Negative (Negative); Leukocyte Esterase,Urine Negative (Negative); Nitrite,Urine Negative (Negative); Protein,Urine Negative (Negative); Specific Gravity,Urine 1.004 (1.001-1.035); Urobilinogen,Urine <2.0 mg/dL (<2.0)
--- NOTE | 2022-06-06 23:58 | CT ---
EXAMINATION TYPE: CT brain wo con DATE OF EXAM: 06/06/2022 COMPARISON: 09/19/2021 HISTORY: high bp CT DLP: 1113.4 mGycm Automated exposure control for dose reduction was used. Images obtained of the brain without contrast. Ventricles have normal size. There is no mass effect nor midline shift. There is cerebral atrophy. Th ere is some mild hypodensity in the periventricular white matter. No evidence of intracranial hemorrh age. Calvarium is intact. The skull base is intact. There is normal aeration of the mastoid sinuses. IMPRESSION: Cerebral atrophy. Mild chronic small vessel ischemia. No change compared to old exam.
--- NOTE | 2022-06-07 00:05 | XR ---
EXAMINATION TYPE: XR chest 1V DATE OF EXAM: 06/06/2022 COMPARISON: 02/18/2022 HISTORY: Epigastric pain TECHNIQUE: Single view FINDINGS: Heart is enlarged. No heart failure. Thoracic ureter is atheromatous. There are chest leads . Costophrenic angles are clear. IMPRESSION: Atheromatous aorta. No active cardiopulmonary disease. Cardiomegaly. Heart appears increa sed compared to old exam
[2022-06-07] MEDS ORDERED: SODIUM CHLORIDE 0.9% 1,000 ML IV STA (00:08)
--- NOTE | 2022-06-07 00:08 | XR ---
EXAMINATION TYPE: XR KUB DATE OF EXAM: 06/06/2022 COMPARISON: 02/18/2022 HISTORY: Abdominal pain TECHNIQUE: Single view upright FINDINGS: There are multiple surgical clips in the abdomen. No evidence of intestinal obstruction or pneumoperitoneum. Fecal pattern is normal. No evidence of a mass. There are chest leads. There are cl ips from cholecystectomy. IMPRESSION: Nonacute abdomen. No change compared to old exam.
== END 2022-06-07 01:33 | disposition home or self-care (01) ==
LOC: EC 21:45
DX: E86.0 Dehydration (principal); R53.1 Weakness; R51.9 Headache, unspecified; I10 Essential (primary) hypertension; Z87.891 Personal history of nicotine dependence; Z88.0 Allergy status to penicillin; Z88.2 Allergy status to sulfonamides; Z88.5 Allergy status to narcotic agent; Z88.6 Allergy status to analgesic agent; Z88.1 Allergy status to other antibiotic agents
CPT/HCPCS: 96374; 96375; 96361 ×2; 36415; 93005; 83880; 80053; 83735; 84100; 84484; 85025; 81003; 71045; 74018; 70450; 99285; J2270; J2765